=== PATIENT | male | born 1970 | race Caucasian/White ===

== ENCOUNTER 2019-04-30 10:20 | Emergency (ER) | payer MEDICAID, OTHER ==
[~2019-04-30] VITALS: Ht 182 cm; Wt 108.0 kg
[2019-04-30] MEDS ORDERED: METF-478 PO (10:36)
--- NOTE | 2019-04-30 10:55 | ED Cough/URI ---
General Chief Complaint: Cough/Cold/Flu Symptoms Stated Complaint: COUGH;VOMITING;SORE THROAT Nursing Triage Note: PT CO OF COLD AND COUGH SX FOR APPROX MONTH Sepsis Screen: No Definite Risk Source: patient Exam Limitations: no limitations History of Present Illness Date Seen by Provider: Apr 30, 2019 Time Seen by Provider: 10:35 Initial Comments The patient presents to the ER by private conveyance with chief complaint of 2 months of cough but no last month has become productive. No fevers chills. Last day or so he's been coughing so much that he's vomited. No diarrhea or abdominal chest pain. No history of COPD or asthma. He follows with Dr. Castellanos at [facility] and didn't get a flu shot last week. He has not seen his primary care doctor or urgent care about his cough. He's been told he has allergies in the past that he does not believe that and does not take any anti- allergy medicines. He says he's coughing up stringy green phlegm. Allergies and Home Medications Home Medications Benzonatate 100 Mg Capsule, 100 MG PO Q6H PRN for cough Prescribed by: SUMMER MUSA on 04/30/19 1057 Ondansetron 4 Mg Tab.rapdis, 4 MG PO Q6H PRN for NAUSEA/VOMITING Prescribed by: SUMMER MUSA on 04/30/19 1057 Patient Home Medication List Home Medication List Reviewed: Yes Review of Systems Review of Systems Constitutional: No chills, No fever EENTM: No ear discharge, No ear pain Respiratory: cough, phlegm; No short of breath, No wheezing Cardiovascular: No chest pain, No edema Gastrointestinal: No abdominal pain, No nausea, No vomiting Genitourinary: No discharge, No dysuria Past Lblbqbl-Ljjyye-Ccmolr Hx Patient Social History Alcohol Use: Denies Use Recreational Drug Use: No Smoking Status: Former Smoker Recent Foreign Travel: No Contact w/Someone Who Travel: No Recent Infectious Disease Expo: No Recent Hopitalizations: No Physical Abuse: No Sexual Abuse: No Past Medical History Surgeries: Yes (L FOOT AMPUTATION) Appendectomy Respiratory: No Cardiac: No Neurological: No Genitourinary: No Gastrointestinal: No 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 oz. kg; 32.00 BMI Method: General Appearance: WD/WN, no apparent distress Eyes: Bilateral Eye Normal Inspection, Bilateral Eye PERRL, Bilateral Eye EOMI HEENT: PERRL/EOMI, normal ENT inspection, TMs normal, pharyngeal erythema (swollen tonsils without exudate) Neck: non-tender, full range of motion, supple, normal inspection Respiratory: lungs clear, normal breath sounds, no respiratory distress, no accessory muscle use Cardiovascular: normal peripheral pulses, regular rate, rhythm Gastrointestinal: normal bowel sounds, non tender, soft Neurologic/Psychiatric: alert, normal mood/affect, oriented x 3 Progress/Results/Core Measures Suspected Sepsis Recent Fever Within 48 Hours: No Infection Criteria Present: None New/Unexplained Altered Menta: No Sepsis Screen: No Definite Risk SIRS Temperature: Pulse: 107 Respiratory Rate: 18 Blood Pressure 147 /77 Mean: 100 Results/Orders My Orders Orders - SUMMER MUSA Chest Pa/Lat (2 View) (04/30/19 10:46) Vital Signs/I&O 04/30/19 04/30/19 10:25 10:25 Temp 35.8 Pulse 107 Resp 18 B/P (MAP) 147/77 (100) Pulse Ox 100 O2 Delivery Room Air Room Air Capillary Refill : Less Than 3 Seconds Blood Pressure Mean: 100 Progress Note : Time: 10:50 Progress Note Two-view chest. It is negative then we'll treat him with some antiallergy cetirizine, Tessalon Perles and Zofran for nausea. Follow-up with primary care. Aseptic vital signs and clear lung sounds. Diagnostic Imaging Diagonstic Imaging: Xray Plain Films/CT/US/NM/MRI: chest (2v) Comments NAME: BALDEMARCARLENEDWAYNE MED REC#: [id number] PT STATUS: REG ER : 1970 PHYSICIAN: SUMMER MUSA MD ADMIT DATE: 04/30/19/ER Draft Date of Exam:04/30/19 CHEST PA/LAT (2 VIEW) INDICATION: Cough and cold symptoms. Time of exam: 10:51 AM Correlation is made with prior chest from 02/28/2016. The heart size is stable. The lungs are clear. No infiltrates are detected. The pulmonary vascularity is unremarkable. No effusion or pneumothorax is seen. Postoperative changes in the lower cervical spine are identified. Left costophrenic angle was not included on this radiograph. IMPRESSION: No acute cardiopulmonary process is detected. Dictated on workstation # [id number] Dict: 04/30/19 1106 Trans: 04/30/19 1110 [facility] [id number] Interpreted by: JANAE NEFF MD Electronically signed by: Reviewed: Reviewed by Me Departure Impression Primary Impression: Upper respiratory infection Qualified Codes: J06.9 - Acute upper respiratory infection, unspecified Additional Impressions: Cough Allergic cough Disposition: 01 HOME, SELF-CARE Condition: Stable Departure-Patient Inst. Decision time for Depature: 11:16 Referrals: FABY GARCIA MD (PCP) Primary Care Physician Patient Instructions: Cough, Adult (DC) Add. Discharge Instructions: Start taking cetirizine/Zyrtec 10 mg daily for the next month. If you have coughing fits you can use humidifiers, vapor rubs such as Mentholatum or Vicks and take 1-2 tablets of Tessalon Perles every 6 hours as needed. If you have nausea or vomiting then you can take Zofran 1 tablet under the tongue every 6 hours as needed. Take 2 tablets of prednisone twice a day for the next 5 days to help bring down the inflammation causing your cough. If you begin to experience fevers or your symptoms do not improve over the next week or 2 then you need to follow-up with your primary care doctor to discuss further workup. All discharge instructions reviewed with patient and/or family. Voiced un derstanding. Scripts Prednisone (Prednisone) 20 Mg Tab 40 MG PO BID for 5 Days, #20 TAB 0 Refills Prov: SUMMER MUSA 04/30/19 Ondansetron (Ondansetron Odt) 4 Mg Tab.rapdis 4 MG PO Q6H PRN for NAUSEA/VOMITING, #8 TAB 0 Refills Prov: SUMMER MUSA 04/30/19 Benzonatate (Tessalon Perle) 100 Mg Capsule 100 MG PO Q6H PRN for cough, #30 CAP 0 Refills Prov: SUMMER MUSA 04/30/19 Work/School Note: Work Release Form Date Seen in the Emergency Department: Apr 30, 2019 Return to Work: May 01, 2019 Restrictions: No Restrictions SUMMER MUSA Apr 30, 2019 10:55
[2019-04-30] MEDS ORDERED: BENZ-13 PO (10:57)
[2019-04-30] MEDS ORDERED: ONDA4TAB11 PO (10:57)
--- NOTE | 2019-04-30 11:10 | Diagnostic Imaging Report ---
INDICATION: Cough and cold symptoms. Time of exam: 10:51 AM Correlation is made with prior chest from 02/28/2016. The heart size is stable. The lungs are clear. No infiltrates are detected. The pulmonary vascularity is unremarkable. No effusion or pneumothorax is seen. Postoperative changes in the lower cervical spine are identified. Left costophrenic angle was not included on this radiograph. IMPRESSION: No acute cardiopulmonary process is detected. Dictated by: Dictated on workstation # [id number]
[2019-04-30] MEDS ORDERED: PRD20T PO (11:18)
[2019-04-30 11:30] VITALS: BP 147/77
== END 2019-04-30 11:30 | disposition home or self-care (01) ==
LOC: ER 10:22
DX: J06.9 Acute upper respiratory infection, unspecified (principal); E11.9 Type 2 diabetes mellitus without complications; Z89.432 Acquired absence of left foot; Z87.891 Personal history of nicotine dependence; Z90.49 Acquired absence of other specified parts of digestive tract
CPT/HCPCS: 71046

== ENCOUNTER 2020-10-29 15:02 | Inpatient (IN) | payer MEDICAID, MEDICARE, OTHER ==
[~2020-10-29] VITALS: Ht 183 cm; Wt 99.7 kg
[~2020-10-29 15:02] MED LIST: BENZ-13 PO; METF-478 PO; ONDA4TAB11 PO; PRD20T PO
[2020-10-29] MEDS ORDERED: NS IV 1000 ML 1,000 ML IV SCH ×3 (15:30→19:15)
--- NOTE | 2020-10-29 15:33 | ED General ---
General Stated Complaint: DIABETIC ULCER;SOB;COUGH Source of Information: Patient Exam Limitations: No Limitations History of Present Illness Date Seen by Provider: Oct 29, 2020 Time Seen by Provider: 15:28 Initial Comments To ER by private vehicle with reports of ulcers to both of his feet. He had a prior left transmetatarsal foot amputation about 4 years ago. He has an ulcer of the distal tip of the stump which seems to be improving. He has a more significant ulcer to the right great toe. He has been wrapping these at home with gauze. He is not seeing wound care. He has not established with any health system physician. History of diabetes but does not take any medication to control it. He also had some shortness of breath and chills onset today. He states he does this often when he gets any sort of illness. He had Covid in April and received his second dose of Moderna vaccine in the middle of September of this year. He is ambulatory into ER with the use of a walker. Timing/Duration: Other Severity: Moderate Associated Systoms: Denies Symptoms Allergies and Home Medications Allergies Coded Allergies: No Known Drug Allergies (Unverified , 10/29/20) Home Medications Benzonatate 100 Mg Capsule, 100 MG PO Q6H PRN for cough Prescribed by: SUMMER MUSA on 04/30/19 1057 Ondansetron 4 Mg Tab.rapdis, 4 MG PO Q6H PRN for NAUSEA/VOMITING Prescribed by: SUMMER MUSA on 04/30/19 1057 Prednisone 20 Mg Tab, 40 MG PO BID Prescribed by: SUMMER MUSA on 04/30/19 1118 Patient Home Medication List Home Medication List Reviewed: Yes Review of Systems Review of Systems Constitutional: see HPI, chills EENTM: see HPI Respiratory: see HPI, short of breath Cardiovascular: no symptoms reported Genitourinary: no symptoms reported Musculoskeletal: see HPI Skin: no symptoms reported Psychiatric/Neurological: No Symptoms Reported Hematologic/Lymphatic: No Symptoms Reported Immunological/Allergic: no symptoms reported Past Cewhqkg-Gxvgtc-Qcbeop Hx Patient Social History Recent Hopitalizations: No Past Medical History Surgeries: Yes (L FOOT AMPUTATION) Appendectomy Respiratory: No Cardiac: No Neurological: No Genitourinary: No Gastrointestinal: No Musculoskeletal: Yes (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 oz. kg; 32.00 BMI Method: General Appearance: No Apparent Distress, WD/WN, Chronically ill, Other (Complains of shortness of breath. Lungs are clear to auscultation. Oxygen saturation 99% on room air. Heart rate little tachycardia rate of 100-1 10. Blood pressure 150s over 90s. Afebrile.) Eyes: Bilateral Eye Normal Inspection, Bilateral Eye PERRL, Bilateral Eye EOMI Neck: Full Range of Motion, Normal Inspection Respiratory: No Accessory Muscle Use, No Respiratory Distress Cardiovascular: Normal Peripheral Pulses, Tachycardia Gastrointestinal: Non Tender, Soft Extremity: No Calf Tenderness, Other (There is a callus with a central fissure that is ulcerated to the stump of the left foot. The right great toe is necrotic and moist at the medial tip. I am able to express bubbles and pus from this by squeezing on it. The anteromedial ankle on the right has some ulcers as well. He has a palpable dorsalis pedis pulse as well as posterior tibial pulse bilaterally) Neurologic/Psychiatric: Alert, Oriented x3 Skin: Normal Color, Warm/Dry Focused Exam Lactate Level 10/29/20 15:30: Lactic Acid Level 1.22 Lactic Acid Level Laboratory Tests Test 10/29/20 15:30 Lactic Acid Level 1.22 MMOL/L (0.50-2.00) Progress/Results/Core Measures Suspected Sepsis SIRS Temperature: Pulse: Respiratory Rate: Laboratory Tests 10/29/20 15:30: White Blood Count 9.4 Blood Pressure / Mean: 10/29/20 15:30: Lactic Acid Level 1.22 Laboratory Tests 10/29/20 15:30: Creatinine 1.51H, INR Comment 1.0, Platelet Count 406H, Total Bilirubin 0.4 Results/Orders Lab Results Laboratory Tests Test 10/29/20 15:30 10/29/20 16:18 Range/Units White Blood Count 9.4 4.3-11.0 10^3/uL Red Blood Count 4.53 4.30-5.52 10^6/uL Hemoglobin 12.3 L 13.3-17.7 g/dL Hematocrit 37 L 40-54 % Mean Corpuscular Volume 81 80-99 fL Mean Corpuscular Hemoglobin 27 25-34 pg Mean Corpuscular Hemoglobin Concent 34 32-36 g/dL Red Cell Distribution Width 12.4 10.0-14.5 % Platelet Count 406 H 130-400 10^3/uL Mean Platelet Volume 9.6 9.0-12.2 fL Immature Granulocyte % (Auto) 1 % Neutrophils (%) (Auto) 77 H 42-75 % Lymphocytes (%) (Auto) 16 12-44 % Monocytes (%) (Auto) 7 0-12 % Eosinophils (%) (Auto) 0 0-10 % Basophils (%) (Auto) 0 0-10 % Neutrophils # (Auto) 7.2 1.8-7.8 X 10^3 Lymphocytes # (Auto) 1.5 1.0-4.0 X 10^3 Monocytes # (Auto) 0.6 0.0-1.0 X 10^3 Eosinophils # (Auto) 0.0 0.0-0.3 10^3/uL Basophils # (Auto) 0.0 0.0-0.1 10^3/uL Immature Granulocyte # (Auto) 0.1 0.0-0.1 10^3/uL Erythrocyte Sedimentation Rate 76 H 0-30 MM/HR Prothrombin Time 13.2 12.2-14.7 SEC INR Comment 1.0 0.8-1.4 D-Dimer 1.00 H 0.00-0.49 UG/ML Sodium Level 125 *L 135-145 MMOL/L Potassium Level 4.3 3.6-5.0 MMOL/L Chloride Level 90 L 98-107 MMOL/L Carbon Dioxide Level 23 21-32 MMOL/L Anion Gap 12 5-14 MMOL/L Blood Urea Nitrogen 37 H 7-18 MG/DL Creatinine 1.51 H 0.60-1.30 MG/DL Estimat Glomerular Filtration Rate 49 BUN/Creatinine Ratio 25 Glucose Level 508 *H 70-105 MG/DL Lactic Acid Level 1.22 0.50-2.00 MMOL/L Calcium Level 9.4 8.5-10.1 MG/DL Corrected Calcium 9.7 8.5-10.1 MG/DL Total Bilirubin 0.4 0.1-1.0 MG/DL Aspartate Amino Transf (AST/SGOT) 15 5-34 U/L Alanine Aminotransferase (ALT/SGPT) 14 0-55 U/L Alkaline Phosphatase 93 40-136 U/L Total Protein 9.3 H 6.4-8.2 GM/DL Albumin 3.6 3.2-4.5 GM/DL Beta-Hydroxybutyrate (Chem panel) 1.40 H 0.00-0.27 MMOL/L Urine Color YELLOW Urine Clarity SL CLOUDY Urine pH 5.0 5-9 Urine Specific Maxie >=1.030 1.016-1.022 Urine Protein 2+ H NEGATIVE Urine Glucose (UA) 3+ H NEGATIVE Urine Ketones TRACE H NEGATIVE Urine Nitrite NEGATIVE NEGATIVE Urine Bilirubin NEGATIVE NEGATIVE Urine Urobilinogen 0.2 < = 1.0 MG/DL Urine Leukocyte Esterase 1+ H NEGATIVE Urine RBC (Auto) 2+ H NEGATIVE Urine RBC NONE /HPF Urine WBC 25-50 H /HPF Urine Squamous Epithelial Cells NONE /HPF Urine Crystals NONE /LPF Urine Bacteria LARGE H /HPF Urine Casts NONE /LPF Urine Mucus NEGATIVE /LPF Urine Yeast LARGE H /HPF Urine Culture Indicated YES My Orders Orders - TREVER PABLO APRN Hemoglobin A1c (10/29/20 15:23) Cbc With Automated Diff (10/29/20 15:23) Comprehensive Metabolic Panel (10/29/20 15:23) Erythrocyte Sedimentation Rate (10/29/20 15:23) Foot, Right, 3 View (10/29/20 15:23) Ed Iv/Invasive Line Start (10/29/20 15:23) Blood Culture (10/29/20 15:23) Ua Culture If Indicated (10/29/20 15:23) Beta Hydroxybutyrate (10/29/20 15:23) Protime With Inr (10/29/20 15:23) Chest 1 View, Ap/Pa Only (10/29/20 15:23) Fibrin Degradation Products (10/29/20 15:23) Lactic Acid Analyzer (10/29/20 15:23) Wound Culture (10/29/20 15:23) Ns Iv 1000 Ml (Sodium Chloride 0.9%) (10/29/20 15:30) Ct Angio Chest W (10/29/20 16:14) Ns Iv 1000 Ml (Sodium Chloride 0.9%) (10/29/20 16:15) Urine Culture (10/29/20 16:18) Iohexol Injection (Omnipaque 350 Mg/Ml 1 (10/29/20 16:45) Received Contrast (Hold Metformin- Contr (10/29/20 16:45) Ns (Ivpb) (Sodium Chloride 0.9% Ivpb Bag (10/29/20 16:45) Ceftriaxone For Iv Use (Rocephin For I (10/29/20 16:45) Fluconazole Tablet (Ed Only) (Diflucan T (10/29/20 16:45) Piperacillin Sodium/Tazobactam (Zosyn Vi (10/29/20 17:15) Vancomycin Injection (Vancomycin Injecti (10/29/20 17:15) Insulin (Regular) Human (Novolin R (Per (10/29/20 17:15) Medications Given in ED Current Medications Medications Dose Ordered Sig/Zhao Route Start Time Stop Time Status Last Admin Dose Admin Iohexol 100 ml ONCE ONCE IV 10/29/20 16:45 10/29/20 16:48 DC 10/29/20 16:46 80 ML Sodium Chloride 100 ml ONCE ONCE IV 10/29/20 16:45 10/29/20 16:48 DC 10/29/20 16:46 80 ML Vital Signs/I&O 10/29/20 15:15 Temp 37.0 Pulse 113 Resp 16 B/P (MAP) 138/74 (95) O2 Delivery Room Air Capillary Refill : Diagnostic Imaging Diagonstic Imaging: Xray Comments NAME: ARMINDAANILADWAYNE [facility] REC#: [id number] PT STATUS: REG ER : 1970 PHYSICIAN: TREVER PABLO APRN ADMIT DATE: 10/29/20/ER Draft Date of Exam:10/29/20 FOOT, RIGHT, 3 VIEW EXAMINATION: Right foot radiographs, 3 views. COMPARISON: None. HISTORY: 50-year-old male, osteomyelitis of the great toe. FINDINGS: There is soft tissue swelling at the level of the first digit proximal and distal phalanges. There is bone remodeling of the first distal phalanx which appears likely long-standing. There is a nondisplaced fracture involving the lateral aspect of the base of the first distal phalanx. There is bone destruction involving the distal aspect of the first proximal phalanx with pathologic fracture. There is abnormal increased attenuation in the adjacent soft tissues medially. There is degenerative type calcaneal enthesopathy. There is mild tibiotalar osteoarthritis. IMPRESSION: 1. Osteomyelitis involving at least the distal aspect of the first proximal phalanx with pathologic fracture. 2. Most likely chronic appearing remodeling of the first distal phalanx. Nondisplaced fracture of the lateral aspect of the base of the first distal phalanx. Dictated on workstation # [id number] Dict: 10/29/20 1602 Trans: 10/29/20 1613 [facility] [id number] Interpreted by: AZAEL SMITH MD Electronically signed by: NAME: DWAYNE ALLISON [facility] REC#: [id number] PT STATUS: REG ER : 1970 PHYSICIAN: TREVER PABLO APRN ADMIT DATE: 10/29/20/ER Draft Date of Exam:10/29/20 CT ANGIO CHEST W EXAMINATION: CT angiography of the chest. TECHNIQUE: Contrast enhanced thin section helical images were obtained through the chest with intravenous contrast timed for the optimal opacification of the arterial structures per CTA protocol. Post-processing, reconstructions and interpretation of angiographic images of the vessels was performed. 3D MIP reconstructions were performed and reviewed. All CT scans use one or more of the following dose optimizing techniques: automated exposure control, MA and/or KvP adjustment based on a patient size and exam type, or iterative reconstruction. HISTORY: Shortness of breath. COMPARISON: None available. FINDINGS: There is no pulmonary embolism. There is no edema or pneumonia. No pleural effusion. No pneumothorax. There is a 6 mm lingular nodule. There is mild dependent atelectasis in the bases. There is no axillary or supraclavicular lymphadenopathy. There is no mediastinal lymphadenopathy. Heart size is normal. There are mild coronary artery calcifications. No pericardial effusion. Aorta is normal in caliber. Limited views of the upper abdomen show changes of cholecystectomy. There are no suspicious osseous lesions. IMPRESSION: 1. No pulmonary embolism. 2. There is a 6 mm lingular nodule. According to the Fleischner Society guidelines: Recommend CT at 6-12 months and then again at 18-24 months (the second CT is optional in a low risk patient). Dictated on workstation # [id number] Dict: 10/29/20 1650 Trans: 10/29/20 1657 [id number] [id number] Interpreted by: DAVID KAUFMAN MD Electronically signed by: Departure Communication (Admissions) Going to admit to Dr. White for mild DKA, urinary tract infection. Glucose 503, beta hydroxybutyrate little elevated with ketones in the urine. However he has a normal CO2 and anion gap. Going to admit on insulin drip, Zosyn and vancomycin and consult Dr. Cuevas. Impression Primary Impression: Osteomyelitis of toe of right foot Additional Impressions: Diabetic ketoacidosis Urinary tract infection Disposition: ADMITTED INPATIENT Condition: Stable Admissions Decision to Admit Reason: Admit from ER (General) Decision to Admit/Date: Oct 29, 2020 Time/Decision to Admit Time: 17:16 Departure-Patient Inst. Referrals: FABY GARCIA MD (PCP) Primary Care Physician TREVER PABLO APRN Oct 29, 2020 15:33
[2020-10-29 15:49] LABS: BASOPHILS % (AUTO) 0 % (0-10); EOSINOPHILS % (AUTO) 0 % (0-10); HEMATOCRIT 37 % (40-54); HEMOGLOBIN 12.3 g/dL (13.3-17.7); LYMPHOCYTES # (AUTO) 1.5 X 10^3 (1.0-4.0); LYMPHOCYTES % (AUTO) 16 % (12-44); MEAN CORPUSCULAR HEMOGLOBIN 27 pg (25-34); MEAN CORPUSCULAR HGB CONC 34 g/dL (32-36); MEAN CORPUSCULAR VOLUME 81 fL (80-99); MEAN PLATELET VOLUME 9.6 fL (9.0-12.2); MONOCYTES # (AUTO) 0.6 X 10^3 (0.0-1.0); MONOCYTES % (AUTO) 7 % (0-12); NEUTROPHILS # (AUTO) 7.2 X 10^3 (1.8-7.8); NEUTROPHILS % (AUTO) 77 % (42-75); PLATELET COUNT 406 10^3/uL (130-400); WHITE BLOOD COUNT 9.4 10^3/uL (4.3-11.0)
[2020-10-29 15:59] LABS: ERYTHROCYTE SEDIMENTATION RATE 76 MM/HR (0-30)
[2020-10-29 16:04] LABS: PROTHROMBIN TIME PATIENT 13.2 SEC (12.2-14.7)
[2020-10-29 16:05] LABS: ALBUMIN 3.6 GM/DL (3.2-4.5); BILIRUBIN,TOTAL 0.4 MG/DL (0.1-1.0); CALCIUM 9.4 MG/DL (8.5-10.1); CREATININE SERUM 1.51 MG/DL (0.60-1.30); POTASSIUM 4.3 MMOL/L (3.6-5.0); TOTAL PROTEIN 9.3 GM/DL (6.4-8.2)
--- NOTE | 2020-10-29 16:10 | Diagnostic Imaging Report ---
EXAMINATION: Chest radiograph, portable AP view. DATE: 10/29/2020 4:00 p.m. INDICATION: 50-year-old male, history of osteomyelitis. Surgical clearance. COMPARISON: April 30, 2019. FINDINGS: There is incompletely imaged cervical spine hardware. Heart size and mediastinal contours are unremarkable. There is no identified pneumothorax. There is no large pleural effusion. There is no identified focal airspace consolidation. IMPRESSION: No identified acute cardiopulmonary abnormality. Dictated by: Dictated on workstation # [id number]
--- NOTE | 2020-10-29 16:14 | Diagnostic Imaging Report ---
EXAMINATION: Right foot radiographs, 3 views. COMPARISON: None. HISTORY: 50-year-old male, osteomyelitis of the great toe. FINDINGS: There is soft tissue swelling at the level of the first digit proximal and distal phalanges. There is bone remodeling of the first distal phalanx which appears likely long-standing. There is a nondisplaced fracture involving the lateral aspect of the base of the first distal phalanx. There is bone destruction involving the distal aspect of the first proximal phalanx with pathologic fracture. There is abnormal increased attenuation in the adjacent soft tissues medially. There is degenerative type calcaneal enthesopathy. There is mild tibiotalar osteoarthritis. IMPRESSION: 1. Osteomyelitis involving at least the distal aspect of the first proximal phalanx with pathologic fracture. 2. Most likely chronic appearing remodeling of the first distal phalanx. Nondisplaced fracture of the lateral aspect of the base of the first distal phalanx. Dictated by: Dictated on workstation # [id number]
[2020-10-29 16:31] LABS: BILIRUBIN,URINE NEGATIVE (NEGATIVE); CLARITY,URINE SL CLOUDY; COLOR,URINE YELLOW; GLUCOSE, URINE (UA) 3+ (NEGATIVE); KETONES,URINE TRACE (NEGATIVE); LEUKOCYTE ESTERASE ,URINE 1+ (NEGATIVE); NITRITE,URINE NEGATIVE (NEGATIVE); PROTEIN,URINE 2+ (NEGATIVE)
[2020-10-29 16:43] LABS: BACTERIA,URINE LARGE /HPF; WBC,URINE 25-50 /HPF; YEAST,URINE LARGE /HPF
[2020-10-29] MEDS ORDERED: HOLD METFORMIN - RECEIVED CONTRAST 20 ML VIAL IV SCH (16:45)
[2020-10-29] MEDS ORDERED: IOHEXOL 350 MG/ML 100 ML (OMNIPAQUE 350) VIAL IV ONE (16:45)
[2020-10-29] MEDS ORDERED: cefTRIAXone FOR IV USE 1,000 MG in WATER (STERILE) FOR INJECTION 10 ML IV ONE (16:45)
[2020-10-29] MEDS ORDERED: FLUCONAZOLE 150 MG TABLET (ED ONLY) PO ONE (16:45)
[2020-10-29] MEDS ORDERED: NS 100 ML (IVPB) BAG IV ONE (16:45)
--- NOTE | 2020-10-29 16:57 | Diagnostic Imaging Report ---
EXAMINATION: CT angiography of the chest. TECHNIQUE: Contrast enhanced thin section helical images were obtained through the chest with intravenous contrast timed for the optimal opacification of the arterial structures per CTA protocol. Post-processing, reconstructions and interpretation of angiographic images of the vessels was performed. 3D MIP reconstructions were performed and reviewed. All CT scans use one or more of the following dose optimizing techniques: automated exposure control, MA and/or KvP adjustment based on a patient size and exam type, or iterative reconstruction. HISTORY: Shortness of breath. COMPARISON: None available. FINDINGS: There is no pulmonary embolism. There is no edema or pneumonia. No pleural effusion. No pneumothorax. There is a 6 mm lingular nodule. There is mild dependent atelectasis in the bases. There is no axillary or supraclavicular lymphadenopathy. There is no mediastinal lymphadenopathy. Heart size is normal. There are mild coronary artery calcifications. No pericardial effusion. Aorta is normal in caliber. Limited views of the upper abdomen show changes of cholecystectomy. There are no suspicious osseous lesions. IMPRESSION: 1. No pulmonary embolism. 2. There is a 6 mm lingular nodule. According to the Fleischner Society guidelines: Recommend CT at 6-12 months and then again at 18-24 months (the second CT is optional in a low risk patient). Dictated by: Dictated on workstation # [id number]
[2020-10-29] MEDS ORDERED: VANCOMYCIN INJECTION 1,000 MG in NS (IVPB) 250 ML IV SCH (17:15)
[2020-10-29] MEDS ORDERED: inSUlin (REGULAR) HUMAN 1 UNIT/0.01 ML (CHARGE PER UNIT) IV SCH (17:15)
[2020-10-29] MEDS ORDERED: PIPERACILLIN SODIUM/TAZOBACTAM 4.5 GM in NS (IVPB) 100 ML IV ONE (17:15)
[2020-10-29] MEDS ORDERED: VANCOMYCIN 1500 MG/NS 500 ML IVPB IV NR ×2 (18:00)
[2020-10-29] MEDS ORDERED: PIPERACILLIN/TAZO 4.5 GM VIAL (ZOSYN) IV ONE (18:01)
[2020-10-29 18:45] VITALS: BP 142/84
[2020-10-29] MEDS ORDERED: ONDANSETRON 4 MG/2 ML (SDV) Z0FRAN IV PRN (19:15)
[2020-10-29] MEDS ORDERED: POTASSIUM CL 10MEQ/50ML IVPB 50 ML IV SCH (19:15)
[2020-10-29] MEDS ORDERED: D5 1/2 NS 1000 ML IV SOLUTION 1,000 ML IV SCH (19:15)
[2020-10-29] MEDS: 1/2 NS IV SOLUTION 1,000 ML IV SCH ×2 (19:33→23:23)
[2020-10-29 19:41] LABS: MEAN PLATELET VOLUME 10.1 fL (9.0-12.2); WHITE BLOOD COUNT 9.7 10^3/uL (4.3-11.0)
[2020-10-29] MEDS ORDERED: ENOXAPARIN 40 MG/0.4 ML (LOVENOX) SYR SC SCH (20:00)
[2020-10-29] MEDS: meTOprolol TARTRATE 25 MG (LOPRESSOR) TABLET PO SCH (20:18)
[2020-10-29] MEDS: POTASSIUM CL 10MEQ/50ML IVPB 50 ML IV SCH ×2 (20:19→23:13)
[2020-10-29 22:07] LABS: BUN/CREATININE RATIO 26; CALCIUM 8.1 MG/DL (8.5-10.1); CARBON DIOXIDE 22 MMOL/L (21-32); CHLORIDE 99 MMOL/L (98-107); CREATININE SERUM 1.11 MG/DL (0.60-1.30); GFR ESTIMATED > 60; GLUCOSE 215 MG/DL (70-105); POTASSIUM 3.6 MMOL/L (3.6-5.0); SODIUM 133 MMOL/L (135-145)
[2020-10-29] MEDS: HYDROcodone/APAP 5 MG/325 MG (LORTAB) TAB PO PRN (23:11)
[2020-10-29] MEDS: PIPERACILLIN/TAZO 4.5 GM/NS 100 ML IV SCH ×2 (23:38)
[2020-10-30 00:02] LABS: BUN/CREATININE RATIO 27; CALCIUM 7.8 MG/DL (8.5-10.1); CARBON DIOXIDE 21 MMOL/L (21-32); CHLORIDE 100 MMOL/L (98-107); CREATININE SERUM 1.07 MG/DL (0.60-1.30); GFR ESTIMATED > 60; GLUCOSE 214 MG/DL (70-105); POTASSIUM 3.8 MMOL/L (3.6-5.0); SODIUM 132 MMOL/L (135-145)
[2020-10-30] MEDS: POTASSIUM CL 10MEQ/50ML IVPB 50 ML IV SCH (01:12)
[2020-10-30] MEDS: 1/2 NS IV SOLUTION 1,000 ML IV SCH (02:09)
[2020-10-30 03:41] LABS: BASOPHILS # (AUTO) 0.1 10^3/uL (0.0-0.1); BASOPHILS % (AUTO) 1 % (0-10); EOSINOPHILS # (AUTO) 0.2 10^3/uL (0.0-0.3); EOSINOPHILS % (AUTO) 2 % (0-10); HEMATOCRIT 31 % (40-54); HEMOGLOBIN 9.9 g/dL (13.3-17.7); LYMPHOCYTES # (AUTO) 2.4 10^3/uL (1.0-4.0); LYMPHOCYTES % (AUTO) 28 % (12-44); MEAN CORPUSCULAR HEMOGLOBIN 27 pg (25-34); MEAN CORPUSCULAR HGB CONC 32 g/dL (32-36); MEAN CORPUSCULAR VOLUME 85 fL (80-99); MONOCYTES # (AUTO) 0.8 10^3/uL (0.0-1.0); MONOCYTES % (AUTO) 9 % (0-12); NEUTROPHILS # (AUTO) 5.3 10^3/uL (1.8-7.8); NEUTROPHILS % (AUTO) 60 % (42-75); PLATELET COUNT 306 10^3/uL (130-400); WHITE BLOOD COUNT 8.9 10^3/uL (4.3-11.0)
[2020-10-30 03:57] LABS: BUN/CREATININE RATIO 26; CARBON DIOXIDE 21 MMOL/L (21-32); CHLORIDE 101 MMOL/L (98-107); CREATININE SERUM 1.08 MG/DL (0.60-1.30); GFR ESTIMATED > 60; GLUCOSE 180 MG/DL (70-105); MAGNESIUM 1.9 MG/DL (1.6-2.4); PHOSPHORUS 3.3 MG/DL (2.3-4.7); POTASSIUM 3.8 MMOL/L (3.6-5.0); SODIUM 132 MMOL/L (135-145)
[2020-10-30] MEDS: inSUlin ASPART (NovoLOG) 1 UNIT/0.01 ML (CHARGE PER UNIT) SC SCH ×4 (06:32→22:05)
[2020-10-30] MEDS: VANCOMYCIN 1500 MG/NS 500 ML IVPB IV SCH ×4 (06:32→19:09)
--- NOTE | 2020-10-30 07:50 | Diagnostic Imaging Report ---
EXAMINATION: Chest 1 view HISTORY: Shortness of breath COMPARISON: 10/29/2020 FINDINGS: The lungs are clear without edema or pneumonia. No pleural effusion or pneumothorax. Heart size is normal. IMPRESSION: 1. Clear lungs. Dictated by: Dictated on workstation # [id number]
[2020-10-30] MEDS: meTOprolol TARTRATE 25 MG (LOPRESSOR) TABLET PO SCH ×2 (09:08→22:05)
[2020-10-30] MEDS: PIPERACILLIN/TAZO 4.5 GM/NS 100 ML IV SCH ×4 (09:08→16:57)
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
[2020-10-30] MEDS: fluCOnazole (DIFLUCAN) 100 MG TAB PO SCH (16:57)
[2020-10-31] VITALS (7 sets, daily range): BP systolic 115–141; BP diastolic 73–89
[2020-10-31] MEDS: PIPERACILLIN/TAZO 4.5 GM/NS 100 ML IV SCH ×6 (00:08→16:11)
[2020-10-31] MEDS ORDERED: TROUGH ORDER-PHARMACY XX NR (06:00)
[2020-10-31] MEDS: inSUlin ASPART (NovoLOG) 1 UNIT/0.01 ML (CHARGE PER UNIT) SC SCH ×4 (06:35→21:25)
--- NOTE | 2020-10-31 06:56 | Progress Note - Hospitalist ---
Subjective HPI/CC On Admission Date Seen by Provider: Oct 31, 2020 Time Seen by Provider: 12:00 CC: DKA with right foot osteomyelitis with cellulitis HPI: This is a 50yoWM clinic patient of [facility] who stopped taking his insulin for several months who presented to the ER with 500+ sugar and a draining right great toe ulceration and cellulitis. Dr Cuevas was consulted and will plan on great toe amputation Sunday. DKA noted so insulin drip was started. Subjective/Events-last exam Patient doing well Labs ok OR today and amputated the great toe Wound vac will be placed tomorrow Review of Systems General: Fatigue Musculoskeletal: foot pain Focused Exam Lactate Level 10/29/20 15:30: Lactic Acid Level 1.22 Objective Exam Vital Signs Vital Signs Date Time Temp Pulse Resp B/P (MAP) Pulse Ox O2 Delivery O2 Flow Rate FiO2 10/31/20 15:37 36.5 85 18 150/87 (108) 99 Room Air 10/31/20 10:45 3 Capillary Refill : Less Than 3 Seconds General Appearance: No Apparent Distress, WD/WN, Chronically ill Respiratory: Lungs Clear Cardiovascular: Regular Rate, Rhythm Neurologic/Psychiatric: Alert, Oriented x3 Results/Procedures Lab Laboratory Tests 10/31/20 06:23 Patient resulted labs reviewed. Assessment/Plan Assessment and Plan Assess & Plan/Chief Complaint Assessment: DKA Right great toe cellulitis with osteomyelitis s/p amputation Dr Cuevas POD # 0 HTN HLP Plan: Insulin IV abx Dr Cuevas 10/31/20: Insulin decreased s/p amputation CHANTELL HAHN DO Oct 31, 2020 06:56
[2020-10-31 07:13] LABS: BASOPHILS # (AUTO) 0.1 10^3/uL (0.0-0.1); BASOPHILS % (AUTO) 1 % (0-10); EOSINOPHILS # (AUTO) 0.2 10^3/uL (0.0-0.3); EOSINOPHILS % (AUTO) 3 % (0-10); HEMATOCRIT 35 % (40-54); HEMOGLOBIN 11.1 g/dL (13.3-17.7); LYMPHOCYTES # (AUTO) 2.6 10^3/uL (1.0-4.0); LYMPHOCYTES % (AUTO) 29 % (12-44); MEAN CORPUSCULAR HEMOGLOBIN 27 pg (25-34); MEAN CORPUSCULAR HGB CONC 31 g/dL (32-36); MEAN CORPUSCULAR VOLUME 85 fL (80-99); MEAN PLATELET VOLUME 9.8 fL (9.0-12.2); MONOCYTES # (AUTO) 0.7 10^3/uL (0.0-1.0); MONOCYTES % (AUTO) 8 % (0-12); NEUTROPHILS # (AUTO) 5.1 10^3/uL (1.8-7.8); NEUTROPHILS % (AUTO) 58 % (42-75); PLATELET COUNT 380 10^3/uL (130-400); WHITE BLOOD COUNT 8.8 10^3/uL (4.3-11.0)
[2020-10-31 07:50] LABS: ALANINE AMINOTRANSFERASE 13 U/L (0-55); ALBUMIN 2.9 GM/DL (3.2-4.5); ALKALINE PHOSPHATASE 56 U/L (40-136); BILIRUBIN,TOTAL 0.3 MG/DL (0.1-1.0); BUN/CREATININE RATIO 14; CARBON DIOXIDE 26 MMOL/L (21-32); CHLORIDE 105 MMOL/L (98-107); CREATININE SERUM 0.98 MG/DL (0.60-1.30); GFR ESTIMATED > 60; GLUCOSE 111 MG/DL (70-105); SODIUM 139 MMOL/L (135-145); TOTAL PROTEIN 7.7 GM/DL (6.4-8.2)
[2020-10-31] MEDS ORDERED: LIDOCAINE/EPI 1%-1:100,000 (XYLOCAINE) 20ML ONE (08:26)
[2020-10-31] MEDS: VANCOMYCIN 1500 MG/NS 500 ML IVPB IV SCH ×4 (08:42→18:45)
[2020-10-31] MEDS ORDERED: MIDAZOLAM 2 MG/2 ML (VERSED) VIAL ONE (08:44)
[2020-10-31] MEDS ORDERED: LIDOCAINE PF 2% 5 ML (XYLOCAINE) VIAL ONE (08:44)
[2020-10-31] MEDS ORDERED: SEVOFLURANE (ULTANE) 15 ML INHAL SOLN ONE ×2 (08:44→10:02)
[2020-10-31] MEDS ORDERED: fentaNYL INJ 100 MCG/2 ML AMP ONE (08:44)
[2020-10-31] MEDS ORDERED: proPOfol 200 MG/20 ML (DIPRIVAN) VIAL IV ONE (08:44)
[2020-10-31] MEDS ORDERED: morphine INJ 10 MG/ML 1ML (SYR OR VIAL) IVP ONE (09:00)
[2020-10-31] MEDS ORDERED: LACTATED RINGERS 1,000 ML IV PRN (09:00)
[2020-10-31] MEDS ORDERED: ONDANSETRON 4 MG/2 ML (SDV) Z0FRAN IVP PRN (09:00)
[2020-10-31] MEDS ORDERED: MEPERIDINE (DEMEROL) INJ 50 MG/ML IVP ONE (09:00)
[2020-10-31] MEDS ORDERED: HYDROmorphone 2 MG/ML VIAL (DILAUDID) ONE (09:11)
--- NOTE | 2020-10-31 10:12 | Progress Note-Post Operative ---
Post-Operative Progess Note Surgeon (s)/Termite Control Servicer (s) Surgeon SLIM LOPEZ DO Termite Control Servicer: SUSHIL Kumar Pre-Operative Diagnosis Osteomyelitis 1st toe right foot Post-Operative Diagnosis same Procedure & Operative Findings Date of Procedure 10/31/20 Procedure Performed/Findings Amputation at phalangeal-metatarsal joint Anesthesia Type LMA Estimated Blood Loss Estimated blood loss (mL): scant Specimens/Packing Specimens Removed Right 1st toe SLIM LOPEZ DO Oct 31, 2020 10:12
--- NOTE | 2020-10-31 10:28 | Anesthesia-General Post-Op ---
General Patient Condition Mental Status/LOC: Same as Preop Cardiovascular: Satisfactory Nausea/Vomiting: Absent Respiratory: Satisfactory Pain: Controlled Complications: Absent Post Op Complications Complications None Follow Up Care/Instructions Patient Instructions None needed. Anesthesia/Patient Condition Patient Condition Patient is doing well, no complaints, stable vital signs, no apparent adverse anesthesia problems. No complications reported per nursing. NBA HOLLIDAY CRNA Oct 31, 2020 10:28
[2020-10-31] MEDS: meTOprolol TARTRATE 25 MG (LOPRESSOR) TABLET PO SCH ×2 (11:26→21:27)
[2020-10-31] MEDS: HYDROcodone/APAP 5 MG/325 MG (LORTAB) TAB PO PRN (12:10)
--- NOTE | 2020-10-31 13:43 | OPERATIVE REPORT ---
DATE OF SERVICE: 10/31/2020 PREOPERATIVE DIAGNOSIS: Osteomyelitis, right first toe. POSTOPERATIVE DIAGNOSIS: Osteomyelitis, right first toe, pending pathology. PROCEDURE: Amputation of right first toe at the phalangeal metatarsal joint. SURGEON: Diego Cuevas DO FOOD SAFETY FIELD SPECIALIST: Jessika Blum MS4. ANESTHESIA: LMA. SPECIMEN: Right first toe. BLOOD LOSS: Scant. FLUIDS: Per anesthesia. POSTOPERATIVE CONDITION: Stable. INDICATION FOR PROCEDURE: The patient is a 50-year-old male who unfortunately has uncontrolled diabetes. Has already had an amputation of the base of the left foot transmetatarsal amputation and the patient now has osteomyelitis in the first toe on the right foot. FINDINGS: The patient had osteomyelitis, first toe amputated. Sent to pathology. PROCEDURE NOTE: After informed consent was obtained, the patient was brought to the operating room, placed on the operating table in supine position, sterilely prepped and draped in normal fashion. Lidocaine was used to perform a foot block as well as a digital block. I then used a #15 blade to make incision around the first toe at the base then used Bovie electrocautery to cut down through the tissue down to the phalangeal metatarsal joint, able to start cutting around and removed this first toe right at the phalangeal metatarsal joint. Hemostasis obtained using Bovie electrocautery. Copiously irrigated with normal saline, then I could not close this. The patient has a very edematous foot. Elected to pack with iodoform, 4 x 4s and then Kerlix and Coban dressing. The patient tolerated the procedure. Sponge, instrument and needle count correct at the end of the case. Job ID: [id number] DocumentID: [id number] Dictated Date: 10/31/2020 10:15:26 Assignment Officer Date: 10/31/2020 13:43:03 Dictated By: DIEGO CUEVAS DO
[2020-10-31] MEDS: fluCOnazole (DIFLUCAN) 100 MG TAB PO SCH (17:07)
[2020-11-01] MEDS: PIPERACILLIN/TAZO 4.5 GM/NS 100 ML IV SCH ×8 (00:03→23:40)
[2020-11-01 05:03] LABS: BASOPHILS # (AUTO) 0.1 10^3/uL (0.0-0.1); BASOPHILS % (AUTO) 1 % (0-10); EOSINOPHILS # (AUTO) 0.2 10^3/uL (0.0-0.3); EOSINOPHILS % (AUTO) 2 % (0-10); HEMATOCRIT 34 % (40-54); HEMOGLOBIN 10.7 g/dL (13.3-17.7); LYMPHOCYTES # (AUTO) 1.9 10^3/uL (1.0-4.0); LYMPHOCYTES % (AUTO) 23 % (12-44); MEAN CORPUSCULAR HEMOGLOBIN 27 pg (25-34); MEAN CORPUSCULAR HGB CONC 31 g/dL (32-36); MEAN CORPUSCULAR VOLUME 86 fL (80-99); MEAN PLATELET VOLUME 9.3 fL (9.0-12.2); MONOCYTES # (AUTO) 0.4 10^3/uL (0.0-1.0); MONOCYTES % (AUTO) 5 % (0-12); NEUTROPHILS # (AUTO) 5.6 10^3/uL (1.8-7.8); NEUTROPHILS % (AUTO) 68 % (42-75); PLATELET COUNT 355 10^3/uL (130-400); WHITE BLOOD COUNT 8.3 10^3/uL (4.3-11.0)
[2020-11-01 05:28] LABS: ALANINE AMINOTRANSFERASE 11 U/L (0-55); ALBUMIN 2.8 GM/DL (3.2-4.5); ALKALINE PHOSPHATASE 55 U/L (40-136); BILIRUBIN,TOTAL 0.2 MG/DL (0.1-1.0); BUN/CREATININE RATIO 11; CALCIUM 8.6 MG/DL (8.5-10.1); CARBON DIOXIDE 22 MMOL/L (21-32); CHLORIDE 105 MMOL/L (98-107); CREATININE SERUM 0.97 MG/DL (0.60-1.30); GFR ESTIMATED > 60; GLUCOSE 155 MG/DL (70-105); POTASSIUM 4.5 MMOL/L (3.6-5.0); SODIUM 137 MMOL/L (135-145); TOTAL PROTEIN 7.4 GM/DL (6.4-8.2)
[2020-11-01] MEDS: inSUlin ASPART (NovoLOG) 1 UNIT/0.01 ML (CHARGE PER UNIT) SC SCH ×4 (06:20→20:41)
[2020-11-01] MEDS: VANCOMYCIN 1500 MG/NS 500 ML IVPB IV SCH ×2 (06:22)
[2020-11-01 08:00] VITALS: BP 149/92
[2020-11-01] MEDS: meTOprolol TARTRATE 25 MG (LOPRESSOR) TABLET PO SCH ×2 (08:00→20:41)
--- NOTE | 2020-11-01 09:39 | Progress Note - Surgery ---
TREVER LANDAVERDE MED STUDENT 11/01/20 0939: Subjective Date Seen by a Provider: Nov 01, 2020 Time Seen by a Provider: 06:35 Subjective/Events-last exam Zachariah Stanton states he has his same chronic intermittent nerve pain from the feet but denies new pain. He denies fever, chills, abdominal pain, SOB, and cough. Focused Exam Lactate Level 10/29/20 15:30: Lactic Acid Level 1.22 Objective Exam Vital Signs Date Time Temp Pulse Resp B/P (MAP) Pulse Ox O2 Delivery O2 Flow Rate FiO2 11/01/20 08:00 36.9 85 18 149/92 (111) 96 Room Air 11/01/20 08:00 Room Air 11/01/20 08:00 36.9 85 18 149/92 (111) 96 Room Air 11/01/20 03:44 36.4 78 16 136/81 (99) 97 Room Air 10/31/20 23:59 36.6 79 16 142/89 (106) 99 Room Air 10/31/20 20:00 Room Air 10/31/20 19:00 36.6 85 18 147/83 (104) 100 Room Air 10/31/20 15:37 36.5 85 18 150/87 (108) 99 Room Air 10/31/20 11:41 35.9 81 18 144/89 (107) 97 Room Air 10/31/20 11:05 36.2 14 136/84 (101) 97 Room Air 10/31/20 11:05 Room Air 10/31/20 11:00 Room Air 10/31/20 10:55 14 140/88 (105) 100 Room Air 10/31/20 10:50 14 138/89 (105) 100 Room Air 10/31/20 10:45 OxyMask 3 10/31/20 10:40 14 141/86 (104) 100 OxyMask 3 10/31/20 10:30 18 115/79 (91) 100 OxyMask 5 10/31/20 10:30 OxyMask 5 10/31/20 10:20 16 115/73 (87) 99 OxyMask 8 10/31/20 10:19 36.1 16 115/73 (87) 99 OxyMask 8 10/31/20 10:19 OxyMask 8 I & O 11/01/20 07:00 Intake Total 2207 ml Output Total 3075 ml Balance -868 ml Capillary Refill : Less Than 3 SecondsLess Than 3 Seconds General Appearance: No Apparent Distress, WD/WN, Chronically ill HEENT: PERRL/EOMI, Normal ENT Inspection, Pharynx Normal, Moist Mucous Membranes Neck: Full Range of Motion, Normal Inspection, Non Tender Respiratory: Chest Non Tender, Lungs Clear, Normal Breath Sounds, No Accessory Muscle Use, No Respiratory Distress Cardiovascular: Regular Rate, Rhythm, No Murmur Gastrointestinal: normal bowel sounds, non tender, soft Extremity: Normal Capillary Refill, Normal Inspection, Normal Range of Motion, Non Tender, No Calf Tenderness, Pedal Edema (trace bilaterally), Other (Left midfoot amputation. Right foot wrapped in dressing. 4x Ulcers to right medial leg ) Neurologic/Psychiatric: Alert, Oriented x3 Skin: Normal Color, Warm/Dry Lymphatic: No Adenopathy Results Lab Laboratory Tests 10/31/20 11:17: Glucometer 108 10/31/20 15:38: Glucometer 268H 10/31/20 21:15: Glucometer 164H 11/01/20 04:50: White Blood Count 8.3, Red Blood Count 4.00L, Hemoglobin 10.7L, Hematocrit 34L, Mean Corpuscular Volume 86, Mean Corpuscular Hemoglobin 27, Mean Corpuscular Hemoglobin Concent 31L, Red Cell Distribution Width 12.8, Platelet Count 355, Mean Platelet Volume 9.3, Immature Granulocyte % (Auto) 1, Neutrophils (%) (Auto) 68, Lymphocytes (%) (Auto) 23, Monocytes (%) (Auto) 5, Eosinophils (%) (Auto) 2, Basophils (%) (Auto) 1, Neutrophils # (Auto) 5.6, Lymphocytes # (Auto) 1.9, Monocytes # (Auto) 0.4, Eosinophils # (Auto) 0.2, Basophils # (Auto) 0.1, Immature Granulocyte # (Auto) 0.1, Sodium Level 137, Potassium Level 4.5, Chloride Level 105, Carbon Dioxide Level 22, Anion Gap 10, Blood Urea Nitrogen 11, Creatinine 0.97, Estimat Glomerular Filtration Rate > 60, BUN/Creatinine Ratio 11, Glucose Level 155H, Calcium Level 8.6, Corrected Calcium 9.6, Total Bilirubin 0.2, Aspartate Amino Transf (AST/SGOT) 22, Alanine Aminotransferase (ALT/SGPT) 11, Alkaline Phosphatase 55, Total Protein 7.4, Albumin 2.8L Microbiology 10/29/20 MRSA Screen - Final, Complete MRSA not isolated 10/29/20 Urine Culture - Preliminary, Resulted YEAST Klebsiella oxytoca See Comments 10/29/20 Blood Culture - Preliminary, Resulted No growth 10/29/20 Gram Stain - Final, Resulted 10/29/20 Wound Culture - Preliminary, Resulted Gram Pos Mixed Bacterial Nancy Streptococcus pyogenes Grp A See Comments Assessment/Plan Assessment/Plan Assessment/Plan Osteomyelitis and nondisplaced fracture, 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 Plan for wound vac application today. Ulcers to bilateral feet and pressure ulcers, lower back -continue local wound care DM -poorly controlled at home due primarily to medication noncompliance -blood sugars consistently down to 150-200 here. SOB, productive cough - resolved -did admit to these on initial exam -denies currently SLIM CUEVAS DO 11/01/20 1502: Subjective Time Seen by a Provider: 13:31 Subjective/Events-last exam Pt seen and examined, states he is doing fine. Wound care nurse has already come in and placed wound VAC Review of Systems Pulmonary: No Dyspnea, No Cough Cardiovascular: No: Chest Pain, Palpitations Gastrointestinal: No: Nausea, Vomiting, Abdominal Pain Objective Exam General Appearance: No Apparent Distress, WD/WN HEENT: Moist Mucous Membranes Respiratory: Lungs Clear, Normal Breath Sounds, No Accessory Muscle Use, No Respiratory Distress Cardiovascular: Regular Rate, Rhythm, No Murmur Gastrointestinal: non tender, soft Extremity: Pedal Edema (trace bilaterally), Other (Left midfoot amputation. Right foot with wound VAC on area where 1st toe was amputated. 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 Wound vac placed. Ulcers to bilateral feet and pressure ulcers, lower back -continue local wound care DM -poorly controlled at home due primarily to medication noncompliance -blood sugars consistently down to 150-200 here. SOB, productive cough - resolved -did admit to these on initial exam -denies currently Supervisory-Addendum Brief Verification & Attestation Participated in pt care: history, MDM, physical Personally performed: exam, history, MDM Care discussed with: Medical Student Procedures: n/a Verification and Attestation of Medical Student E/M Service A medical student performed and documented this service. I then reviewed and verified all information documented by the medical student and made modifications to such information, when appropriate. I personally performed a physical exam, medical decision making and then discussed any differences between the notes and made revisions as necessary to create one note. Silm Cuevas , 11/01/20 , 15:02 TREVER LANDAVERDE MED STUDENT Nov 01, 2020 09:39 SLIM CUEVAS DO Nov 01, 2020 15:02
[2020-11-01] MEDS: HYDROcodone/APAP 5 MG/325 MG (LORTAB) TAB PO PRN (10:59)
[2020-11-01 12:11] VITALS: BP 144/89
--- NOTE | 2020-11-01 14:43 | Physical Therapy Evaluation ---
PT Evaluation-General Medical Diagnosis Admission Date Oct 29, 2020 at 17:13 Medical Diagnosis: UTI/osteomyelitis right great toe Onset Date: Oct 29, 2020 Therapy Diagnosis Therapy Diagnosis: debility/weakness Precautions Precautions/Isolations: Fall Prevention, Standard Precautions Weight Bear Status Right Lower Extremity: Right Touch Toe Bearing Left Lower Extremity: Left Full Weight Bearing right heel contact with surgical shoe in place (wound vac right foot) Referral Physician: Phil Reason for Referral: Evaluation/Treatment Medical History Pertinent Medical History: DM Additional Medical History Covid 04/2020; left transmetatarsal amputation (2017) Current History ER secondary to left foot wound/s/p right great toe amputation Reviewed History: Yes Social History Home: Apartment Current Living Status: Alone Entry Into Home: Elevator Prior Prior Level of Function SCALE: Activities may be completed with or without assistive devices. 5-Tvjeezwapn-hkiqaev completes the activity by him/herself with no assistance from a helper. 5-Set-up or Clean-up Assistance-helper sets up or cleans up; patient completes activity. [place] assists only prior to or following the activity. 4-Supervision or Touching Assistance-helper provides verbal cues and/or touching/steadying and/or contact guard assistance as patient completes activity. Assistance may be provided throughout the activity or intermittently. 3-Partial/Moderate Assistance-helper does LESS THAN HALF the effort. [place] lifts, holds or supports trunk or limbs, but provides less than half the effort. 2-Substantial/Maximal Assistance-helper does MORE THAN HALF the effort. [place] lifts or holds trunk or limbs and provides more than half the effort. 3-Xlcfuaggu-sbblpj does ALL the effort. Patient does none of the effort to complete the activity. Or, the assistance of 2 or more helpers is required for the patient to complete the activity. If activity was not attempted, code reason: 7-Patient Refused. 9-Not Applicable-not attempted and the patient did not perform the activity be fore the current illness, exacerbation or injury. 10-Not Attempted due to Environmental Limitations-(lack of equipment, weather restraints, etc.). 88-Not Attempted due to Medical Conditions or Safety Concerns. Bed Mobility: 6 Transfers (B,C,W/C): 6 Gait: 6 Stairs: 9 Indoor Mobility (Ambulation): Independent Stairs: Not [place] Prior Devices Use: Walker PT Evaluation-Current Subjective Patient agrees to PT. Pain Numeric Pain Scale: 0-No Pain Location: No Pain Reported Objective Patient Orientation: Person, Time, Situation ROM/Strength ROM Lower Extremities bilateral LE WFL (left foot plantarflexion contracture due to transmetatarsal amputation) Strength Lower Extremities left LE 3+/5 grossly/right LE 3/5 grossly Integumentary/Posture Integumentary refer to nursing notes Bowel Incontinence: No Bladder Incontinence: No Posture WFL Neuromuscular (Tone, Coordination, Reflexes) grossly intact Sensory Vision: Wears Glasses Hearing: Functional Sensation Right Lower Extremit: Impaired Sensation Left Lower Extremity: Impaired Transfers Roll Left to Right (QC): 6 Sit to Lying (QC): 6 Lying to Sitting/Side of Bed(Q: 6 Sit to Stand (QC): 3 Chair/Ccx-cq-Fzpgh Xfer(QC): 7 Toilet Transfer (QC): 7 Gait Does the Patient Walk?: No and Walking Goal IS indicated Mode of Locomotion: Both Anticipated Mode of Locomotion: Both Gait Assistive Device: FWW Balance Sitting Static: Normal Sitting Dynamic: Normal Standing Static: Fair Standing Dynamic: Fair Assessment/Needs 50 y.o. male, will benefit from skilled PT to address functional strength and mobility to improve current LOF. Patient may benefit from w/c due to restricted weight bearing right foot and amputation left foot. w/c for safety and healing Rehab Potential: Fair PT Snf Goals Scallop Dredger Goals PT Scallop Dredger Goals Time Frame: November 20, 2020 Roll Left & Right (QC): 6 Sit to Lying (QC): 6 Lying-Sitting on Side/Bed(QC): 6 Sit to Stand (QC): 6 Chair/Aad-jw-Ehwny Xfer(QC): 6 Toilet Transfer (QC): 6 Walk 10 feet (QC): 4 Walk 50ft with 2 Turns (QC): 88 Walk 150 ft (QC): 88 1 Step (curb) (QC): 9 4 Steps (QC): 9 12 Steps (QC): 9 Picking up an Object (QC): 6 (seated position) Does the Pt use WC or Scooter?: Yes Wheel 50 feet with 2 turns (QC: 6 Type: Manual Wheel 150 feet: 6 Type: Manual PT Plan Problem List Problem List: Activity Tolerance, Functional Strength, Safety, Balance, Gait, Transfer Treatment/Plan Treatment Plan: Continue Plan of Care Treatment Plan: Education, Functional Activity [place], Functional Strength, Gait, Safety, Therapeutic Exercise, Transfers Treatment Duration: November 20, 2020 Frequency: 6 times per week Estimated Hrs Per Day: .25 hour per day Patient and/or Family Agrees t: Yes Time/GCodes Time In: 1415 Time Out: 1430 Total Billed Treatment Time: 15 Total Billed Treatment 1 visit EVModC 15 min FRANKLIN NAVARRO PT Nov 01, 2020 14:43
--- NOTE | 2020-11-01 15:46 | Occupational Therapy Eval ---
OT Evaluation-General/PLF Medical Diagnosis Admission Date Oct 29, 2020 at 17:13 Medical Diagnosis: UTI/osteomyelitis right great toe Onset Date: Oct 29, 2020 Therapy Diagnosis Therapy Diagnosis: Weakness, Decreased ADL skills Precautions Precautions/Isolations: Fall Prevention, Standard Precautions Weight Bear Status Weight Bearing Restriction: Partial Weight Bearing Location Restriction: R LE Pt. to bear weight in right heel only due to wound opening earlier today. Pt. also has wound vac on now. Referral Physician: Phil Referral Reason: Activity Tolerance, Self Care, Evaluation/Treatment, Strengthening/ROM Medical History Pertinent Medical History: DM Additional Medical History DKA, Cellulitis, osteomyelitis, Partial amputation left foot. Current History Pt. came to ER with sugars over 500. Pt. had right great toe amputated 10-31-20. Wound opened on 11-01. Wound vac placed 11-01. Reviewed History: Yes Social History Home: Apartment Current Living Status: Alone Entry Into Home: Elevator ADL-Prior Level of Function SCALE: Activities may be completed with or without assistive devices. 6-Hsmkgfebms-rigojse completes the activity by him/herself with no assistance from a helper. 5-Set-up or Clean-up Assistance-helper sets up or cleans up; patient completes activity. [place] assists only prior to or following the activity. 4-Supervision or Touching Assistance-helper provides verbal cues and/or touching/steadying and/or contact guard assistance as patient completes activity. Assistance may be provided throughout the activity or intermittently. 3-Partial/Moderate Assistance-helper does LESS THAN HALF the effort. [place] lifts, holds or supports trunk or limbs, but provides less than half the effort. 2-Substantial/Maximal Assistance-helper does MORE THAN HALF the effort. [place] lifts or holds trunk or limbs and provides more than half the effort. 7-Bnvxlpukw-armlke does ALL the effort. Patient does none of the effort to complete the activity. Or, the assistance of 2 or more helpers is required for the patient to complete the activity. If activity was not attempted, code reason: 7-Patient Refused. 9-Not Applicable-not attempted and the patient did not perform the activity before the current illness, exacerbation or injury. 10-Not Attempted due to Environmental Limitations-(lack of equipment, weather restraints, etc.). 88-Not Attempted due to Medical Conditions or Safety Concerns. ADL PLOF Comments Pt. states that he was independent with daily skills. Pt. uses walker with 4 wheels at home. Does not drive but has rides to get his groceries. Pt. lives in [facility]. Pt. has diabetic shoes from 2 years ago, but states that he needs new ones. Shoes were fit specifically to him as he had a partial amputation of left foot approximately 5 years ago. Self Care: Independent Functional Cognition: Unknown DME/Equipment Comments 4 ww. OT Current Status Subjective No pain reported. Pt. does verbalize that he is afraid of splitting wound again. Nursing aware therapy getting pt. up. Mental Status/Objective Patient Orientation: Person, Place Current Glasses/Contacts: Yes Upper Extremity ROM WFL ADL-Treatment Eating (QC): 6 (per clinical judgement) On/Off Footwear (QC): 2 (Therapy donned left sock and right post op shoe) Other Treatments OT/PT co-treated due to pt's need for skilled assistance x 2. OT addressed ADL skills and wound vac management while PT addressed mobility and transfers. Pt. able to transfer supine-sit with SBA. Pt. is able to stand at bedside with mod x 2, with encouragement to keep weight on right LE only through heel, and not through ball of foot. Pt. able to do, but requests to sit, and then lay back down. Transfers sit-supine with SBA. All needs met. Education OT Patient Education: Correct positioning, Modified ADL techniques, Progress toward Goal/Update tx plan, Purpose of tx/functional activities, Reviewed precautions, Rehab process, Transfer techniques Teaching Recipient: Patient Teaching Methods: Demonstration, Discussion Response to Teaching: Verbalize Understanding, Return Demonstration OT Short Term Goals Short Term Goals Time Frame: November 08, 2020 Eatin Oral hygiene: 5 Toileting hygiene: 4 Shower/bathe self: 3 Upper body dressin Lower body dressin Putting on/taking off footwear: 3 OT Address Change Clerk Goals Address Change Clerk Goals Time Frame: November 15, 2020 Eating (QC): 6 Oral Hygiene (QC): 6 Toileting Hygiene (QC): 6 Shower/Bathe Self (QC): 4 Upper Body Dressing (QC): 6 Lower Body Dressing (QC): 6 On/Off Footwear (QC): 6 Additional Goals: 1-Demonstrate ADL Tasks, 2-Verbalize Understanding, 3- ImproveStrength/[place] 1=Demonstrate adherence to instructed precautions during ADL tasks. 2=Patient will verbalize/demonstrate understanding of assistive devices/modifications for ADL. 3=Patient will improve strength/tolerance for activity to enable patient to perform ADL's. OT Education/Plan Problem List/Assessment Assessment: Decreased Activ Tolerance, Dependent Transfers, Impaired Bed Mobility, Impaired I ADL's, Impaired Self-Care Skills Discharge Recommendations Plan/Recommendations: Continue POC Therapy Discharge Recommendati: Post Acute OT Treatment Plan/Plan of Care Treatment,Training & Education: Yes Patient would benefit from OT for education, treatment and training to promote independence in ADL's, mobility, safety and/or upper extremity function for ADL's. Plan of Care: ADL Retraining, Functional Mobility, UE Funct Exercise/Act Treatment Duration: November 15, 2020 Frequency: 5 times per week Estimated Hrs Per Day: .25 hour per day Agreement: Yes Rehab Potential: Good Time/GCodes Start Time: 14:24 Stop Time: 14:33 Total Time Billed (hr/min): 11 Billed Treatment Time 1, SERGO IQBAL OT Nov 01, 2020 15:46
--- NOTE | 2020-11-01 16:06 | Progress Note ---
Subjective Subjective/Events-last exam Afebrile, denies concerns, pain is controlled. Wound vac in place on amputation site. Objective Exam Last Set of Vital Signs Vital Signs Date Time Temp Pulse Resp B/P (MAP) Pulse Ox O2 Delivery O2 Flow Rate FiO2 11/01/20 12:11 36.9 77 20 144/89 (107) 96 Room Air 10/31/20 10:45 3 Capillary Refill : Less Than 3 SecondsLess Than 3 Seconds I&O Intake and Output 11/01/20 00:00 Intake Total 2207 ml Output Total 2425 ml Balance -218 ml Intake Oral 2207 ml Output Urine Total 2425 ml General: Alert, No Acute Distress Lungs: Clear to Auscultation, Normal Air Movement Heart: Regular Rate, No Murmurs Abdomen: Normal Bowel Sounds, Soft Extremities: Other (wound vac in place to great toe amputation site) Neuro: Normal Speech Results/Procedures Lab Laboratory Tests 10/31/20 21:15: Glucometer 164H 11/01/20 04:50: White Blood Count 8.3, Red Blood Count 4.00L, Hemoglobin 10.7L, Hematocrit 34L, Mean Corpuscular Volume 86, Mean Corpuscular Hemoglobin 27, Mean Corpuscular Hemoglobin Concent 31L, Red Cell Distribution Width 12.8, Platelet Count 355, Mean Platelet Volume 9.3, Immature Granulocyte % (Auto) 1, Neutrophils (%) (Auto) 68, Lymphocytes (%) (Auto) 23, Monocytes (%) (Auto) 5, Eosinophils (%) (A uto) 2, Basophils (%) (Auto) 1, Neutrophils # (Auto) 5.6, Lymphocytes # (Auto) 1.9, Monocytes # (Auto) 0.4, Eosinophils # (Auto) 0.2, Basophils # (Auto) 0.1, Immature Granulocyte # (Auto) 0.1, Sodium Level 137, Potassium Level 4.5, Chloride Level 105, Carbon Dioxide Level 22, Anion Gap 10, Blood Urea Nitrogen 11, Creatinine 0.97, Estimat Glomerular Filtration Rate > 60, BUN/Creatinine Ratio 11, Glucose Level 155H, Calcium Level 8.6, Corrected Calcium 9.6, Total Bilirubin 0.2, Aspartate Amino Transf (AST/SGOT) 22, Alanine Aminotransferase (ALT/SGPT) 11, Alkaline Phosphatase 55, Total Protein 7.4, Albumin 2.8L 11/01/20 12:06: Glucometer 198H Microbiology 10/29/20 MRSA Screen - Final, Complete MRSA not isolated 10/29/20 Urine Culture - Preliminary, Resulted YEAST Klebsiella oxytoca See Comments 10/29/20 Blood Culture - Preliminary, Resulted No growth 10/29/20 Gram Stain - Final, Complete 10/29/20 Wound Culture - Final, Complete Gram Pos Mixed Bacterial Nancy Streptococcus pyogenes Grp A See Comments Radiology Date of Exam:10/29/20 FOOT, RIGHT, 3 VIEW EXAMINATION: Right foot radiographs, 3 views. COMPARISON: None. HISTORY: 50-year-old male, osteomyelitis of the great toe. FINDINGS: There is soft tissue swelling at the level of the first digit proximal and distal phalanges. There is bone remodeling of the first distal phalanx which appears likely long-standing. There is a nondisplaced fracture involving the lateral aspect of the base of the first distal phalanx. There is bone destruction involving the distal aspect of the first proximal phalanx with pathologic fracture. There is abnormal increased attenuation in the adjacent soft tissues medially. There is degenerative type calcaneal enthesopathy. There is mild tibiotalar osteoarthritis. IMPRESSION: 1. Osteomyelitis involving at least the distal aspect of the first proximal phalanx with pathologic fracture. 2. Most likely chronic appearing remodeling of the first distal phalanx. Nondisplaced fracture of the lateral aspect of the base of the first distal phalanx. Dictated by: Dictated on workstation # [id number] Dict: 10/29/20 1602 Trans: 10/29/201 [facility] [id number] Interpreted by: AZAEL SMITH MD Electronically signed by: AZAEL SMITH MD 10/29/20 1707 Assessment/Plan Assessment/Plan (1) Diabetic ketoacidosis Status: Resolved Assessment & Plan: Ketoacidosis resolved, continue insulin and diabetic diet (2) Osteomyelitis of toe of right foot Status: Acute Assessment & Plan: s/p amputation, d/c antibiotics when okay with surgery. (3) Urinary tract infection Status: Acute Assessment & Plan: Yeast (unclear if infection), small amount of klebsiella oxytoca, >100,000 alloscardovia omnicolens not clearly pathogenic. On abx currently for osteo. (4) DVT prophylaxis Status: Acute Assessment & Plan: Enoxaparin on hold due to surgery, resume when okay with surgery MIKEY NIETO MD Nov 01, 2020 16:06
[2020-11-01 16:20] VITALS: BP 149/80
[2020-11-01] MEDS: VANCOMYCIN 1 GM/NS 250 ML IVPB IV SCH ×2 (18:26)
[2020-11-01 20:00] VITALS: BP 145/73
[2020-11-02 00:15] VITALS: BP 142/87
[2020-11-02 04:11] VITALS: BP 153/83
[2020-11-02 05:51] LABS: HEMOGLOBIN 10.1 g/dL (13.3-17.7); MEAN PLATELET VOLUME 9.3 fL (9.0-12.2); WHITE BLOOD COUNT 8.5 10^3/uL (4.3-11.0)
[2020-11-02] MEDS: VANCOMYCIN 1 GM/NS 250 ML IVPB IV SCH ×2 (06:21)
[2020-11-02] MEDS: inSUlin ASPART (NovoLOG) 1 UNIT/0.01 ML (CHARGE PER UNIT) SC SCH ×4 (06:22→20:58)
[2020-11-02 07:10] VITALS: BP 165/96
--- NOTE | 2020-11-02 07:16 | Progress Note - Surgery ---
TREVER LANDAVERDE MED STUDENT 11/02/20 0716: Subjective Date Seen by a Provider: Nov 02, 2020 Time Seen by a Provider: 06:52 Subjective/Events-last exam Mayito is sleeping comfortably in the room. No complaint of pain. I spoke to him at 0710 as well. He denied fever or chills, denied pain beyond his normal intermittent neuropathy. Objective Exam Vital Signs Date Time Temp Pulse Resp B/P (MAP) Pulse Ox O2 Delivery O2 Flow Rate FiO2 11/02/20 04:11 36.4 79 20 153/83 (106) 96 Room Air 11/02/20 00:15 36.6 79 20 142/87 (105) 97 Room Air 11/01/20 20:40 Room Air 11/01/20 20:00 36.8 85 20 145/73 (97) 99 Room Air 11/01/20 16:20 36.2 86 20 149/80 (103) 99 Room Air 11/01/20 12:11 36.9 77 20 144/89 (107) 96 Room Air 11/01/20 08:00 36.9 85 18 149/92 (111) 96 Room Air 11/01/20 08:00 Room Air 11/01/20 08:00 36.9 85 18 149/92 (111) 96 Room Air I & O 11/02/20 07:00 Intake Total 2255 ml Output Total 3800 ml Balance -1545 ml Capillary Refill : Less Than 3 SecondsLess Than 3 Seconds General Appearance: No Apparent Distress, WD/WN HEENT: Moist Mucous Membranes Neck: Full Range of Motion, Normal Inspection, Non Tender Respiratory: Lungs Clear, Normal Breath Sounds, No Accessory Muscle Use, No Respiratory Distress Cardiovascular: Regular Rate, Rhythm, No Murmur Gastrointestinal: non tender, soft Extremity: Pedal Edema (trace bilaterally), Other (Left midfoot amputation. Right foot with wound VAC on area where 1st toe was amputated. 4x Ulcers to right medial leg ) Neurologic/Psychiatric: Alert, Oriented x3 Skin: Normal Color, Warm/Dry Lymphatic: No Adenopathy Results Lab Laboratory Tests 11/01/20 12:06: Glucometer 198H 11/01/20 16:17: Glucometer 181H 11/01/20 20:34: Glucometer 202H 11/02/20 05:16: White Blood Count 8.5, Red Blood Count 3.75L, Hemoglobin 10.1L, Hematocrit 32L, Mean Corpuscular Volume 86, Mean Corpuscular Hemoglobin 27, Mean Corpuscular Hemoglobin Concent 31L, Red Cell Distribution Width 12.7, Platelet Count 376, Mean Platelet Volume 9.3 11/02/20 06:19: Glucometer 82 Microbiology 10/29/20 MRSA Screen - Final, Complete MRSA not isolated 10/29/20 Urine Culture - Preliminary, Resulted YEAST Klebsiella oxytoca See Comments 10/29/20 Blood Culture - Preliminary, Resulted No growth 10/29/20 Gram Stain - Final, Complete 10/29/20 Wound Culture - Final, Complete Gram Pos Mixed Bacterial Nancy Streptococcus pyogenes Grp A See Comments Assessment/Plan Assessment/Plan Assessment/Plan Osteomyelitis and nondisplaced fracture, 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 Wound vac placed. Ulcers to bilateral feet and pressure ulcers, lower back -continue local wound care DM -poorly controlled at home due primarily to medication noncompliance -blood sugars consistently down to 150-200 here. -medical social consultant is working to determine the best adjunct faculty for medical terminology living situation for the patient JESSICASLIMDARNELL Crawford DO 11/02/20 0903: Subjective Time Seen by a Provider: 07:10 Subjective/Events-last exam Pt seen and examined, no new complaints. Review of Systems General: No Chills; Fatigue Cardiovascular: No: Chest Pain, Palpitations Musculoskeletal: No: leg pain, foot pain Objective Exam General Appearance: No Apparent Distress, WD/WN Respiratory: Lungs Clear, Normal Breath Sounds, No Accessory Muscle Use, No Respiratory Distress Cardiovascular: Regular Rate, Rhythm, No Murmur Extremity: Pedal Edema (trace bilaterally), Other (Left midfoot amputation. Right foot with wound VAC on area where 1st toe was amputated. 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 Continue wound VAC Ulcers to bilateral feet and pressure ulcers, lower back -continue local wound care DM -poorly controlled at home due primarily to medication noncompliance -blood sugars consistently down to 150-200 here. -medical social consultant is working to determine the best adjunct faculty for medical terminology living situation for the patient Supervisory-Addendum Brief Verification & Attestation Participated in pt care: history, MDM, physical Personally performed: exam, history, MDM Care discussed with: Medical Student Procedures: n/a Verification and Attestation of Medical Student E/M Service A medical student performed and documented this service in my presence. I reviewed and verified all information documented by the medical student and made modifications to such information, when appropriate. I personally performed the physical exam and medical decision making. Slim Cuevas, Nov 02, 2020,09:03 TREVER LANDAVERDE MED STUDENT Nov 02, 2020 07:16 SLIM CUEVAS DO Nov 02, 2020 09:03
[2020-11-02] MEDS: PIPERACILLIN/TAZO 4.5 GM/NS 100 ML IV SCH ×2 (07:51)
[2020-11-02] MEDS: meTOprolol TARTRATE 25 MG (LOPRESSOR) TABLET PO SCH ×2 (07:51→20:58)
[2020-11-02] MEDS: AMOXICILLIN 500 MG (POLYMOX) CAP PO SCH ×3 (09:39→20:58)
--- NOTE | 2020-11-02 11:28 | Physical Therapy Daily Note ---
PT Daily Note-Current Subjective Patient in bed pre tx, agrees to PT, has no complaints of pain. Appearance Patient in recliner post tx with nurse call, phone, tray, legs elevated, patient instructed to call nurse if he needs to get out of the recliner and he agrees. Mental Status Patient Orientation: Person, Place, Situation wound vac Transfers SCALE: Activities may be completed with or without assistive devices. 4-Ozfwmeszjm-jbbeyas completes the activity by him/herself with no assistance from a helper. 5-Set-up or Clean-up Assistance-helper sets up or cleans up; patient completes activity. [place] assists only prior to or following the activity. 4-Supervision or Touching Assistance-helper provides verbal cues and/or touching/steadying and/or contact guard assistance as patient completes activity. Assistance may be provided throughout the activity or intermittently. 3-Partial/Moderate Assistance-helper does LESS THAN HALF the effort. [place] lifts, holds or supports trunk or limbs, but provides less than half the effort. 2-Substantial/Maximal Assistance-helper does MORE THAN HALF the effort. [place] lifts or holds trunk or limbs and provides more than half the effort. 4-Diskamhgu-xczehg does ALL the effort. Patient does none of the effort to complete the activity. Or, the assistance of 2 or more helpers is required for the patient to complete the activity. If activity was not attempted, code reason: 7-Patient Refused. 9-Not Applicable-not attempted and the patient did not perform the activity before the current illness, exacerbation or injury. 10-Not Attempted due to Environmental Limitations-(lack of equipment, weather restraints, etc.). 88-Not Attempted due to Medical Conditions or Safety Concerns. Roll Left & Right (QC): 6 Lying to Sitting/Side of Bed(Q: 6 Sit to Stand (QC): 3 Chair/Dsb-pd-Ecwun Xfer(QC): 4 Min assist for sit to stand and CGA for transfer to recliner. Patient wears a surgical shoe on the right side, he is aware he has to contact floor with heel instead of toes, it is hard to tell how compliant he is with keeping weight off of forefoot. 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 He did require some cues for hand placement and positioning. Weight Bearing Right Lower Extremity: Right Touch Toe Bearing Left Lower Extremity: Left Full Weight Bearing right heel contact with surgical shoe in place (wound vac right foot) Exercises Seated Therapy Exercises: Ankle pumps, Long arc quads Seated Reps: 20 Treatments bed mobility and transfers, LE exercise Assessment Current Status: Fair Progress Improved motivation. Patient has very little movement in either ankle and has questionable compliance with bearing weight on forefoot on right side. PT Rooming House Inspector Goals Rooming House Inspector Goals PT Longterm Goals Time Frame: November 20, 2020 Roll Left & Right (QC): 6 Sit to Lying (QC): 6 Lying-Sitting on Side/Bed(QC): 6 Sit to Stand (QC): 6 Chair/Ezv-eg-Kzkqo Xfer(QC): 6 Toilet Transfer (QC): 6 Walk 10 feet (QC): 4 Walk 50ft with 2 Turns (QC): 88 Walk 150 ft (QC): 88 1 Step (curb) (QC): 9 4 Steps (QC): 9 12 Steps (QC): 9 Picking up an Object (QC): 6 (seated position) Does the Pt use WC or Scooter?: Yes Wheel 50 feet with 2 turns (QC: 6 Type: Manual Wheel 150 feet: 6 Type: Manual PT Plan Problem List Problem List: Activity Tolerance, Functional Strength, Safety, Balance, Gait, Transfer, Bed Mobility, ROM Treatment/Plan Treatment Plan: Continue Plan of Care Treatment Plan: Education, Functional Activity Kodi, Functional Strength, Gait, Safety, Therapeutic Exercise, Transfers Treatment Duration: November 20, 2020 Frequency: 6 times per week Estimated Hrs Per Day: .25 hour per day Patient and/or Family Agrees t: Yes Safety Risks/Education Patient Education: Transfer Techniques, Reviewed Precautions, Correct Positioning, Safety Issues Teaching Recipient: Patient Teaching Methods: Demonstration, Discussion Response to Teaching: Reinforcement Needed Time/GCodes Time In: 1100 Time Out: 1112 Total Billed Treatment Time: 12 Total Billed Treatment 1 visit FA 12' TE HALL PT Nov 02, 2020 11:28
[2020-11-02 11:33] VITALS: BP 163/81
--- NOTE | 2020-11-02 11:54 | Occupational Ther Daily Note ---
OT Current Status-Daily Note Subjective No pain reported. Appearance Pt. alert and oriented. Agrees to work with OT. Mental Status/Objective Patient Orientation: Person, Place, Time, Situation ADL-Treatment Therapy Code Descriptions/Definitions Functional Frio Measure: 0=Not Assessed/NA 4=Minimal Assistance 1=Total Assistance 5=Supervision or Setup 2=Maximal Assistance 6=Modified Frio 3=Moderate Assistance 7=Complete IndependenceSCALE: Activities may be completed with or without assistive devices. 2-Gzrixhmhzv-tlbbrvy completes the activity by him/herself with no assistance from a helper. 5-Set-up or Clean-up Assistance-helper sets up or cleans up; patient completes activity. [place] assists only prior to or following the activity. 4-Supervision or Touching Assistance-helper provides verbal cues and/or touching/steadying and/or contact guard assistance as patient completes activity. Assistance may be provided throughout the activity or intermittently. 3-Partial/Moderate Assistance-helper does LESS THAN HALF the effort. [place] lifts, holds or supports trunk or limbs, but provides less than half the effort. 2-Substantial/Maximal Assistance-helper does MORE THAN HALF the effort. [place] lifts or holds trunk or limbs and provides more than half the effort. 7-Sdgrhgahq-bofdlq does ALL the effort. Patient does none of the effort to complete the activity. Or, the assistance of 2 or more helpers is required for the patient to complete the activity. If activity was not attempted, code reason: 7-Patient Refused. 9-Not Applicable-not attempted and the patient did not perform the activity before the current illness, exacerbation or injury. 10-Not Attempted due to Environmental Limitations-(lack of equipment, weather restraints, etc.). 88-Not Attempted due to Medical Conditions or Safety Concerns. Eating (QC): 6 (per pt) Oral Hygiene (QC): 5 (Set up to brush teeth and hair on side of bed.) Shower/Bathe Self (QC): 4 (SBA to complete sponge bath seated on side of bed. Pt. able to wash all parts, and able to wash peng area by leaning side to side.) Upper Body Dressing (QC): 88 (Donned fresh hospital gown due to wound vac on foot and IV.) On/Off Footwear: 4 (Pt. able to bring left foot up to him and doff/don slipper sock with SBA while seated.) Other Treatment Pt. agrees to work with OT. Pt. transfers carefully supine to sit with SBA. Pt. completes sponge bath on side of bed. Able to brush teeth seated after set up. OT washes pt's hair with shampoo cap, and pt. is able to brush hair on his own. Pt. is able to transfer self back into supine position, with comfortable positioning of right LE. All needs are met. Education OT Patient Education: Correct positioning, Modified ADL techniques, Progress toward Goal/Update tx plan, Purpose of tx/functional activities, Reviewed precautions, Rehab process, Transfer techniques Teaching Recipient: Patient Teaching Methods: Demonstration, Discussion Response to Teaching: Verbalize Understanding, Return Demonstration OT Short Term Goals Short Term Goals Time Frame: November 08, 2020 Eatin Oral hygiene: 5 Toileting hygiene: 4 Shower/bathe self: 3 Upper body dressin Lower body dressin Putting on/taking off footwear: 3 OT Usp Goals Usp Goals Time Frame: November 15, 2020 Eating (QC): 6 Oral Hygiene (QC): 6 Toileting Hygiene (QC): 6 Shower/Bathe Self (QC): 4 Upper Body Dressing (QC): 6 Lower Body Dressing (QC): 6 On/Off Footwear (QC): 6 Additional Goals: 1-Demonstrate ADL Tasks, 2-Verbalize Understanding, 3- ImproveStrength/Kodi 1=Demonstrate adherence to instructed precautions during ADL tasks. 2=Patient will verbalize/demonstrate understanding of assistive devices/modifications for ADL. 3=Patient will improve strength/tolerance for activity to enable patient to perform ADL's. OT Education/Plan Problem List/Assessment Assessment: Decreased Activ Tolerance, Impaired I ADL's, Impaired Self-Care Skills Discharge Recommendations Plan/Recommendations: Continue POC Therapy Discharge Recommendati: Post Acute OT Treatment Plan/Plan of Care Treatment,Training & Education: Yes Patient would benefit from OT for education, treatment and training to promote independence in ADL's, mobility, safety and/or upper extremity function for ADL's. Plan of Care: ADL Retraining, Functional Mobility, UE Funct Exercise/Act Treatment Duration: November 15, 2020 Frequency: 5 times per week Estimated Hrs Per Day: .25 hour per day Agreement: Yes Rehab Potential: Good Time/GCodes Start Time: 08:35 Stop Time: 09:00 Total Time Billed (hr/min): 25 Billed Treatment Time 1, ADL x 2 SERGO SANTA OT Nov 02, 2020 11:54
[2020-11-02] MEDS: HYDROcodone/APAP 5 MG/325 MG (LORTAB) TAB PO PRN (15:44)
[2020-11-02 16:00] VITALS: BP 167/88
--- NOTE | 2020-11-02 19:14 | Progress Note ---
Subjective Subjective/Events-last exam Afebrile, patient denies concerns. Objective Exam Last Set of Vital Signs Vital Signs Date Time Temp Pulse Resp B/P (MAP) Pulse Ox O2 Delivery O2 Flow Rate FiO2 11/02/20 16:00 36.5 82 20 167/88 (114) 99 Room Air 10/31/20 10:45 3 Capillary Refill : Less Than 3 SecondsLess Than 3 Seconds I&O Intake and Output 11/02/20 00:00 Intake Total 2255 ml Output Total 3800 ml Balance -1545 ml Intake Oral 2255 ml Output Urine Total 3800 ml # Bowel Movements 1 General: Alert, No Acute Distress Lungs: Clear to Auscultation, Normal Air Movement Heart: Regular Rate, No Murmurs Skin: Other (wound vac in place to great toe amputation site) Psych/Mental Status: Mood NL Results/Procedures Lab Laboratory Tests 11/01/20 20:34: Glucometer 202H 11/02/20 05:16: White Blood Count 8.5, Red Blood Count 3.75L, Hemoglobin 10.1L, Hematocrit 32L, Mean Corpuscular Volume 86, Mean Corpuscular Hemoglobin 27, Mean Corpuscular Hemoglobin Concent 31L, Red Cell Distribution Width 12.7, Platelet Count 376, Mean Platelet Volume 9.3 11/02/20 06:19: Glucometer 82 11/02/20 11:36: Glucometer 140H 11/02/20 16:14: Glucometer 213H Microbiology 10/29/20 MRSA Screen - Final, Complete MRSA not isolated 10/29/20 Urine Culture - Final, Complete YEAST Klebsiella oxytoca See Comments 10/29/20 Blood Culture - Preliminary, Resulted No growth 10/29/20 Gram Stain - Final, Complete 10/29/20 Wound Culture - Final, Complete Gram Pos Mixed Bacterial Nancy Streptococcus pyogenes Grp A See Comments Radiology Date of Exam:10/29/20 FOOT, RIGHT, 3 VIEW EXAMINATION: Right foot radiographs, 3 views. COMPARISON: None. HISTORY: 50-year-old male, osteomyelitis of the great toe. FINDINGS: There is soft tissue swelling at the level of the first digit proximal and distal phalanges. There is bone remodeling of the first distal phalanx which appears likely long-standing. There is a nondisplaced fracture involving the lateral aspect of the base of the first distal phalanx. There is bone destruction involving the distal aspect of the first proximal phalanx with pathologic fracture. There is abnormal increased attenuation in the adjacent soft tissues medially. There is degenerative type calcaneal enthesopathy. There is mild tibiotalar osteoarthritis. IMPRESSION: 1. Osteomyelitis involving at least the distal aspect of the first proximal phalanx with pathologic fracture. 2. Most likely chronic appearing remodeling of the first distal phalanx. Nondisplaced fracture of the lateral aspect of the base of the first distal phalanx. Dictated by: Dictated on workstation # [id number] Dict: 10/29/20 1602 Trans: 10/29/20 1701 PJE [id number] Interpreted by: AZAEL SMITH MD Electronically signed by: AZAEL SMITH MD 10/29/20 1702 Assessment/Plan Assessment/Plan (1) Diabetic ketoacidosis Status: Resolved Assessment & Plan: Ketoacidosis resolved, continue insulin and diabetic diet (2) Osteomyelitis of toe of right foot Status: Acute Assessment & Plan: s/p amputation, d/c antibiotics when okay with surgery. 11/02 changed to oral amoxicillin, wound vac continued. (3) Urinary tract infection Status: Acute Assessment & Plan: Yeast (unclear if infection), small amount of klebsiella oxytoca, >100,000 alloscardovia omnicolens not clearly pathogenic. On abx currently for osteo. 11/02 klebsiella resistant only to amp, has completed 5 days of zosyn. (4) DVT prophylaxis Status: Acute Assessment & Plan: Enoxaparin on hold due to surgery, resume when okay with surgery MIKEY NIETO MD Nov 02, 2020 19:14
[2020-11-02 19:48] VITALS: BP 140/81
[2020-11-03 00:14] VITALS: BP 149/88
[2020-11-03 03:58] VITALS: BP 153/92
[2020-11-03] MEDS: inSUlin ASPART (NovoLOG) 1 UNIT/0.01 ML (CHARGE PER UNIT) SC SCH ×4 (05:30→20:08)
--- NOTE | 2020-11-03 07:00 | Progress Note - Surgery ---
TREVER LANDAVERDE MED STUDENT 11/03/20 0700: Subjective Date Seen by a Provider: Nov 03, 2020 Time Seen by a Provider: 06:40 Subjective/Events-last exam Zachariah Stanton reports no leg pain, no fever, no chills, no nausea, no vomiting, no abdominal pain. Objective Exam Vital Signs Date Time Temp Pulse Resp B/P (MAP) Pulse Ox O2 Delivery O2 Flow Rate FiO2 11/03/20 03:58 36.2 81 18 153/92 (112) 96 Room Air 11/03/20 00:14 36.7 91 16 149/88 (108) 96 Room Air 11/02/20 20:58 Room Air 11/02/20 19:48 36.9 88 18 140/81 (100) 98 Room Air 11/02/20 16:00 36.5 82 20 167/88 (114) 99 Room Air 11/02/20 11:33 36.4 81 18 163/81 (108) 100 Room Air 11/02/20 08:00 Room Air 11/02/20 07:10 36.2 82 18 165/96 (119) 98 Room Air I & O 11/03/20 07:00 Intake Total 2590 ml Output Total 4675 ml Balance -2085 ml Capillary Refill : Less Than 3 SecondsLess Than 3 Seconds General Appearance: No Apparent Distress, WD/WN HEENT: Moist Mucous Membranes Neck: Full Range of Motion, Normal Inspection, Non Tender Respiratory: Lungs Clear, Normal Breath Sounds, No Accessory Muscle Use, No Respiratory Distress Cardiovascular: Regular Rate, Rhythm, No Murmur Gastrointestinal: non tender, soft Extremity: Pedal Edema (trace bilaterally), Other (Left midfoot amputation. Right foot with wound VAC on area where 1st toe was amputated. No signs of surrounding skin infection. 4x Ulcers to right medial leg ) Neurologic/Psychiatric: Alert, Oriented x3 Skin: Normal Color, Warm/Dry Lymphatic: No Adenopathy Results Lab Laboratory Tests 11/02/20 11:36: Glucometer 140H 11/02/20 16:14: Glucometer 213H 11/02/20 20:50: Glucometer 194H 11/03/20 05:17: Glucometer 154H Microbiology 10/29/20 MRSA Screen - Final, Complete MRSA not isolated 10/29/20 Urine Culture - Final, Complete YEAST Klebsiella oxytoca See Comments 10/29/20 Blood Culture - Preliminary, Resulted No growth 10/29/20 Gram Stain - Final, Complete 10/29/20 Wound Culture - Final, Complete Gram Pos Mixed Bacterial Nancy Streptococcus pyogenes Grp A See Comments Assessment/Plan Assessment/Plan Assessment/Plan Osteomyelitis and nondisplaced fracture, 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 Continue wound VAC -hold anticoagulants for wound vac Ulcers to bilateral feet and pressure ulcers, lower back -continue local wound care DM -poorly controlled at home due primarily to medication noncompliance -blood sugars consistently down to 150-200 here. -medical social consultant is working to determine the best medical terminologist living situation for the patient SLIM CUEVAS DO 11/03/20 1455: Subjective Time Seen by a Provider: 13:26 Subjective/Events-last exam Pt seen and examined, no new complaints. Review of Systems General: Fatigue Pulmonary: No Dyspnea, No Cough Cardiovascular: No: Chest Pain, Palpitations Gastrointestinal: No: Nausea, Vomiting, Abdominal Pain Objective Exam General Appearance: No Apparent Distress, WD/WN HEENT: Moist Mucous Membranes Respiratory: Lungs Clear, Normal Breath Sounds, No Accessory Muscle Use, No Respiratory Distress Cardiovascular: Regular Rate, Rhythm, No Murmur Extremity: Pedal Edema (trace bilaterally), Other (Left midfoot amputation. Rig ht foot with wound VAC on area where 1st toe was amputated. No signs of surrounding skin infection. 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 Continue wound VAC and change tomorrow -hold anticoagulants for wound vac Ulcers to bilateral feet and pressure ulcers, lower back -continue local wound care DM -poorly controlled at home due primarily to medication noncompliance -blood sugars consistently down to 150-200 here. -medical social consultant is working to determine the best medical terminologist living situation for the patient Supervisory-Addendum Brief Verification & Attestation Participated in pt care: history, MDM, physical Personally performed: exam, history, MDM Care discussed with: Medical Student Procedures: n/a Verification and Attestation of Medical Student E/M Service A medical student performed and documented this service. I then reviewed and verified all information documented by the medical student and made modifications to such information, when appropriate. I personally performed a physical exam, medical decision making and then discussed any differences between the notes and made revisions as necessary to create one note. Slim Cuevas , 11/03/20 , 14:55 TREVER LANDAVERDE MED STUDENT Nov 03, 2020 07:00 SLIM CUEVAS DO Nov 03, 2020 14:55
[2020-11-03 07:30] VITALS: BP 165/94
[2020-11-03] MEDS: meTOprolol TARTRATE 25 MG (LOPRESSOR) TABLET PO SCH ×2 (09:38→19:55)
[2020-11-03] MEDS: lisINopril 20 MG (PRINIVIL) TABLET PO SCH (09:38)
[2020-11-03] MEDS: AMOXICILLIN 500 MG (POLYMOX) CAP PO SCH ×3 (09:38→19:55)
--- NOTE | 2020-11-03 10:08 | Occupational Ther Daily Note ---
OT Current Status-Daily Note Subjective Pt alert, sitting in recliner. Took over pt from PT. Pt agrees to therapy. No c/o pain at this time. Mental Status/Objective Patient Orientation: Person, Place, Time, Situation Attachments: Drains (wound vac), IV ADL-Treatment Therapy Code Descriptions/Definitions Functional [place] Measure: 0=Not Assessed/NA 4=Minimal Assistance 1=Total Assistance 5=Supervision or Setup 2=Maximal Assistance 6=Modified [place] 3=Moderate Assistance 7=Complete IndependenceSCALE: Activities may be completed with or without assistive devices. 1-Latmmtkzjp-bfsaomm completes the activity by him/herself with no assistance from a helper. 5-Set-up or Clean-up Assistance-helper sets up or cleans up; patient completes activity. [place] assists only prior to or following the activity. 4-Supervision or Touching Assistance-helper provides verbal cues and/or touching/steadying and/or contact guard assistance as patient completes activity. Assistance may be provided throughout the activity or intermittently. 3-Partial/Moderate Assistance-helper does LESS THAN HALF the effort. [place] lifts, holds or supports trunk or limbs, but provides less than half the effort. 2-Substantial/Maximal Assistance-helper does MORE THAN HALF the effort. [place] lifts or holds trunk or limbs and provides more than half the effort. 8-Zngkrljcm-eoqadj does ALL the effort. Patient does none of the effort to complete the activity. Or, the assistance of 2 or more helpers is required for the patient to complete the activity. If activity was not attempted, code reason: 7-Patient Refused. 9-Not Applicable-not attempted and the patient did not perform the activity before the current illness, exacerbation or injury. 10-Not Attempted due to Environmental Limitations-(lack of equipment, weather restraints, etc.). 88-Not Attempted due to Medical Conditions or Safety Concerns. Other Treatment Skilled instructions given for medium resistance theraband to increase strength and activity tolerance for daily functional tasks. B horizontal shldr abd/add, bicep flexion, tricep extension and B shldr abd/add completed 2 sets 10 reps with multiple recovery breaks due to fatigue. After session, pt sitting in recliner with call light/phone in reach. All needs met in room. Education OT Patient Education: Exercise program Teaching Recipient: Patient Teaching Methods: Demonstration Response to Teaching: Verbalize Understanding, Return Demonstration, Reinforce ment Needed OT Short Term Goals Short Term Goals Time Frame: November 08, 2020 Eatin Oral hygiene: 5 Toileting hygiene: 4 Shower/bathe self: 3 Upper body dressin Lower body dressin Putting on/taking off footwear: 3 OT Camp Dishwasher Goals Camp Dishwasher Goals Time Frame: November 15, 2020 Eating (QC): 6 Oral Hygiene (QC): 6 Toileting Hygiene (QC): 6 Shower/Bathe Self (QC): 4 Upper Body Dressing (QC): 6 Lower Body Dressing (QC): 6 On/Off Footwear (QC): 6 Additional Goals: 1-Demonstrate ADL Tasks, 2-Verbalize Understanding, 3- ImproveStrength/[place] 1=Demonstrate adherence to instructed precautions during ADL tasks. 2=Patient will verbalize/demonstrate understanding of assistive devices/modifications for ADL. 3=Patient will improve strength/tolerance for activity to enable patient to perform ADL's. OT Education/Plan Problem List/Assessment Assessment: Decreased Activ Tolerance, Decreased UE Strength, Impaired Self- Care Skills Discharge Recommendations Plan/Recommendations: Continue POC Treatment Plan/Plan of Care Patient would benefit from OT for education, treatment and training to promote independence in ADL's, mobility, safety and/or upper extremity function for ADL's. Plan of Care: ADL Retraining, Functional Mobility, UE Funct Exercise/Act Treatment Duration: November 15, 2020 Frequency: 5 times per week Estimated Hrs Per Day: .25 hour per day Agreement: Yes Rehab Potential: Good Time/GCodes Start Time: 09:45 Stop Time: 10:00 Total Time Billed (hr/min): 15 Billed Treatment Time 1 visit-EX 1 (15 min) TOM RODRIGUEZ Nov 03, 2020 10:08
--- NOTE | 2020-11-03 10:09 | Physical Therapy Daily Note ---
PT Daily Note-Current Subjective Pt states "I have no pain." Pt up in recliner and agreeable to ther ex in chair. Mental Status Patient Orientation: Person, Place wound vac Transfers SCALE: Activities may be completed with or without assistive devices. 0-Jrkhhtvuik-jhdavwn completes the activity by him/herself with no assistance from a helper. 5-Set-up or Clean-up Assistance-helper sets up or cleans up; patient completes activity. [place] assists only prior to or following the activity. 4-Supervision or Touching Assistance-helper provides verbal cues and/or touching/steadying and/or contact guard assistance as patient completes activity. Assistance may be provided throughout the activity or intermittently. 3-Partial/Moderate Assistance-helper does LESS THAN HALF the effort. [place] lifts, holds or supports trunk or limbs, but provides less than half the effort. 2-Substantial/Maximal Assistance-helper does MORE THAN HALF the effort. [place] lifts or holds trunk or limbs and provides more than half the effort. 9-Phxjannmr-nohxad does ALL the effort. Patient does none of the effort to complete the activity. Or, the assistance of 2 or more helpers is required for the patient to complete the activity. If activity was not attempted, code reason: 7-Patient Refused. 9-Not Applicable-not attempted and the patient did not perform the activity before the current illness, exacerbation or injury. 10-Not Attempted due to Environmental Limitations-(lack of equipment, weather restraints, etc.). 88-Not Attempted due to Medical Conditions or Safety Concerns. Weight Bearing Right Lower Extremity: Right Touch Toe Bearing Left Lower Extremity: Left Full Weight Bearing right heel contact with surgical shoe in place (wound vac right foot) Exercises Supine Ex: Ankle pumps, Quad Set, Glut sets, Straight leg raise, Hip abd/add Supine Reps: 20 Seated Therapy Exercises: Long arc quads, Hip abd/add Seated Reps: 20 Treatments Pt remained in recliner. Good participation with ther ex. Conversing throomar hout. Pt readjusts weight easily and as needed in chair. Pt in care of DOCKERY post therapy session. Assessment Current Status: Good Progress, Fair Progress Pt mónica ther ex well. Pt with call light and all needs met. In care of DOCKERY post session. 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 PT Retirement Goals Time Frame: November 20, 2020 Roll Left & Right (QC): 6 Sit to Lying (QC): 6 Lying-Sitting on Side/Bed(QC): 6 Sit to Stand (QC): 6 Chair/Qpf-zg-Ttxoh Xfer(QC): 6 Toilet Transfer (QC): 6 Walk 10 feet (QC): 4 Walk 50ft with 2 Turns (QC): 88 Walk 150 ft (QC): 88 1 Step (curb) (QC): 9 4 Steps (QC): 9 12 Steps (QC): 9 Picking up an Object (QC): 6 (seated position) Does the Pt use WC or Scooter?: Yes Wheel 50 feet with 2 turns (QC: 6 Type: Manual Wheel 150 feet: 6 Type: Manual PT Plan Treatment/Plan Treatment Plan: Continue Plan of Care Treatment Plan: Education, Functional Activity [place], Functional Strength, Gait, Safety, Therapeutic Exercise, Transfers Treatment Duration: November 20, 2020 Frequency: 6 times per week Estimated Hrs Per Day: .25 hour per day Patient and/or Family Agrees t: Yes Time/GCodes Time In: 930 Time Out: 945 Total Billed Treatment Time: 15 Total Billed Treatment 1, ther ex 15' WESLY MCMAHON CPTA Nov 03, 2020 10:09
[2020-11-03 11:31] VITALS: BP 138/87
--- NOTE | 2020-11-03 15:45 | Progress Note ---
Subjective Subjective/Events-last exam Afebrile, states he is feeling well, denies concerns. Wondering if he will go to rehab or go home. Objective Exam Last Set of Vital Signs Vital Signs Date Time Temp Pulse Resp B/P (MAP) Pulse Ox O2 Delivery O2 Flow Rate FiO2 11/03/20 11:31 35.9 82 18 138/87 (104) 100 Room Air 10/31/20 10:45 3 Capillary Refill : Less Than 3 SecondsLess Than 3 Seconds I&O Intake and Output 11/03/20 00:00 Intake Total 2490 ml Output Total 5025 ml Balance -2535 ml Intake Oral 2490 ml Output Urine Total 5025 ml # Bowel Movements 1 General: Alert, No Acute Distress Lungs: Clear to Auscultation, Normal Air Movement Heart: Regular Rate, No Murmurs Extremities: Other (wound vac in place to amputation site) Neuro: Normal Speech Psych/Mental Status: Mood NL Results/Procedures Lab Laboratory Tests 11/02/20 16:14: Glucometer 213H 11/02/20 20:50: Glucometer 194H 11/03/20 05:17: Glucometer 154H 11/03/20 11:35: Glucometer 217H Microbiology 10/29/20 MRSA Screen - Final, Complete MRSA not isolated 10/29/20 Urine Culture - Final, Complete YEAST Klebsiella oxytoca See Comments 10/29/20 Blood Culture - Preliminary, Resulted No growth 10/29/20 Gram Stain - Final, Complete 10/29/20 Wound Culture - Final, Complete Gram Pos Mixed Bacterial Nancy Streptococcus pyogenes Grp A See Comments Radiology Date of Exam:10/29/20 FOOT, RIGHT, 3 VIEW EXAMINATION: Right foot radiographs, 3 views. COMPARISON: None. HISTORY: 50-year-old male, osteomyelitis of the great toe. FINDINGS: There is soft tissue swelling at the level of the first digit proximal and distal phalanges. There is bone remodeling of the first distal phalanx which appears likely long-standing. There is a nondisplaced fracture involving the lateral aspect of the base of the first distal phalanx. There is bone destruction involving the distal aspect of the first proximal phalanx with pathologic fracture. There is abnormal increased attenuation in the adjacent soft tissues medially. There is degenerative type calcaneal enthesopathy. There is mild tibiotalar osteoarthritis. IMPRESSION: 1. Osteomyelitis involving at least the distal aspect of the first proximal phalanx with pathologic fracture. 2. Most likely chronic appearing remodeling of the first distal phalanx. Nondisplaced fracture of the lateral aspect of the base of the first distal phalanx. Dictated by: Dictated on workstation # [id number] Dict: 10/29/20 1602 Trans: 10/29/20 1701 [facility] [id number] Interpreted by: AZAEL SMITH MD Electronically signed by: AZAEL SMITH MD 10/29/20 170 Assessment/Plan Assessment/Plan (1) Diabetic ketoacidosis Status: Resolved Assessment & Plan: Ketoacidosis resolved, continue insulin and diabetic diet (2) Osteomyelitis of toe of right foot Status: Acute Assessment & Plan: s/p amputation, d/c antibiotics when okay with surgery. 11/02 changed to oral amoxicillin, wound vac continued. (3) Urinary tract infection Status: Acute Assessment & Plan: Yeast (unclear if infection), small amount of klebsiella oxytoca, >100,000 alloscardovia omnicolens not clearly pathogenic. On abx currently for osteo. 11/02 klebsiella resistant only to amp, has completed 5 days of zosyn. (4) Diabetes mellitus, type 2 Status: Chronic Assessment & Plan: 11/03 Increase levemir to 20 units am and continue 30 units pm Qualifiers: Qualified Codes: E11.621 - Type 2 diabetes mellitus with foot ulcer; L97.509 - Non-pressure chronic ulcer of other part of unspecified foot with unspecified severity (5) Hypertension Status: Chronic Assessment & Plan: Was to be on losartan outpatient, has not been taking medications. Start lisinopril. Qualifiers: Qualified Codes: I10 - Essential (primary) hypertension (6) DVT prophylaxis Status: Acute Assessment & Plan: Enoxaparin on hold due to surgery, resume when okay with surgery MIKEY NIETO MD Nov 03, 2020 15:45
[2020-11-03 16:06] VITALS: BP 160/82
[2020-11-03 19:30] VITALS: BP 148/73
[2020-11-04 00:59] VITALS: BP 152/83
[2020-11-04 05:51] LABS: BASOPHILS # (AUTO) 0.1 10^3/uL (0.0-0.1); BASOPHILS % (AUTO) 1 % (0-10); EOSINOPHILS # (AUTO) 0.3 10^3/uL (0.0-0.3); EOSINOPHILS % (AUTO) 3 % (0-10); HEMATOCRIT 34 % (40-54); HEMOGLOBIN 10.8 g/dL (13.3-17.7); LYMPHOCYTES # (AUTO) 2.8 10^3/uL (1.0-4.0); LYMPHOCYTES % (AUTO) 28 % (12-44); MEAN CORPUSCULAR HEMOGLOBIN 27 pg (25-34); MEAN CORPUSCULAR HGB CONC 32 g/dL (32-36); MEAN CORPUSCULAR VOLUME 86 fL (80-99); MEAN PLATELET VOLUME 9.2 fL (9.0-12.2); MONOCYTES # (AUTO) 0.7 10^3/uL (0.0-1.0); MONOCYTES % (AUTO) 7 % (0-12); NEUTROPHILS # (AUTO) 5.8 10^3/uL (1.8-7.8); NEUTROPHILS % (AUTO) 60 % (42-75); PLATELET COUNT 433 10^3/uL (130-400); WHITE BLOOD COUNT 9.7 10^3/uL (4.3-11.0)
[2020-11-04 06:09] LABS: BUN/CREATININE RATIO 17; CALCIUM 8.8 MG/DL (8.5-10.1); CARBON DIOXIDE 26 MMOL/L (21-32); CHLORIDE 102 MMOL/L (98-107); CREATININE SERUM 0.92 MG/DL (0.60-1.30); GFR ESTIMATED > 60; GLUCOSE 75 MG/DL (70-105); POTASSIUM 4.1 MMOL/L (3.6-5.0); SODIUM 136 MMOL/L (135-145)
[2020-11-04] MEDS: inSUlin ASPART (NovoLOG) 1 UNIT/0.01 ML (CHARGE PER UNIT) SC SCH ×4 (06:19→21:16)
[2020-11-04] MEDS: meTOprolol TARTRATE 25 MG (LOPRESSOR) TABLET PO SCH ×2 (08:30→21:15)
[2020-11-04] MEDS: AMOXICILLIN 500 MG (POLYMOX) CAP PO SCH ×3 (08:30→21:15)
[2020-11-04] MEDS: lisINopril 20 MG (PRINIVIL) TABLET PO SCH (08:30)
--- NOTE | 2020-11-04 11:24 | Physical Therapy Daily Note ---
PT Daily Note-Current Subjective Patient agrees to PT. Denies pain. Mental Status Patient Orientation: Person, Time, Situation wound vac right foot Transfers SCALE: Activities may be completed with or without assistive devices. 5-Vordenfjkl-ouxkipz completes the activity by him/herself with no assistance from a helper. 5-Set-up or Clean-up Assistance-helper sets up or cleans up; patient completes activity. [place] assists only prior to or following the activity. 4-Supervision or Touching Assistance-helper provides verbal cues and/or touching/steadying and/or contact guard assistance as patient completes activity. Assistance may be provided throughout the activity or intermittently. 3-Partial/Moderate Assistance-helper does LESS THAN HALF the effort. [place] lifts, holds or supports trunk or limbs, but provides less than half the effort. 2-Substantial/Maximal Assistance-helper does MORE THAN HALF the effort. [place] lifts or holds trunk or limbs and provides more than half the effort. 2-Vjkfexuxv-shzkgy does ALL the effort. Patient does none of the effort to complete the activity. Or, the assistance of 2 or more helpers is required for the patient to complete the activity. If activity was not attempted, code reason: 7-Patient Refused. 9-Not Applicable-not attempted and the patient did not perform the activity before the current illness, exacerbation or injury. 10-Not Attempted due to Environmental Limitations-(lack of equipment, weather restraints, etc.). 88-Not Attempted due to Medical Conditions or Safety Concerns. Sit to Stand (QC): 4 (CGA for safety) Weight Bearing Right Lower Extremity: Right Touch Toe Bearing Left Lower Extremity: Left Full Weight Bearing right heel contact with surgical shoe in place (wound vac right foot) Gait Training Distance: 10' x 2 Walk 10 feet (QC): 4 Gait Assistive Device: FWW Patient unable to maintain TTWB (10% of weight) through right LE due to left foot transmetatarsal amputation. Patient is adamant about ambulating. Exercises Seated Therapy Exercises: Long arc quads, Hip flexion Seated Reps: 15 Assessment Education with patient on weight bearing status right foot, however, patient is adamant to ambulate. PT suggested w/c for home use for mobility to not compromise healing of right foot. Patient said he would think about it. SW notified of PT concerns and request. PT Brass Finisher Goals Brass Finisher Goals PT Brass Finisher Goals Time Frame: November 20, 2020 Roll Left & Right (QC): 6 Sit to Lying (QC): 6 Lying-Sitting on Side/Bed(QC): 6 Sit to Stand (QC): 6 Chair/Vpn-zu-Hfznn Xfer(QC): 6 Toilet Transfer (QC): 6 Walk 10 feet (QC): 4 Walk 50ft with 2 Turns (QC): 88 Walk 150 ft (QC): 88 1 Step (curb) (QC): 9 4 Steps (QC): 9 12 Steps (QC): 9 Picking up an Object (QC): 6 (seated position) Does the Pt use WC or Scooter?: Yes Wheel 50 feet with 2 turns (QC: 6 Type: Manual Wheel 150 feet: 6 Type: Manual PT Plan Treatment/Plan Treatment Plan: Continue Plan of Care Treatment Plan: Education, Functional Activity [place], Functional Strength, Gait, Safety, Therapeutic Exercise, Transfers Treatment Duration: November 20, 2020 Frequency: 6 times per week Estimated Hrs Per Day: .25 hour per day Patient and/or Family Agrees t: Yes Time/GCodes Time In: 1100 Time Out: 1117 Total Billed Treatment Time: 17 Total Billed Treatment 1 visit FA 17 min FRANKILN NAVARRO PT Nov 04, 2020 11:24
--- NOTE | 2020-11-04 13:12 | Occupational Ther Daily Note ---
OT Current Status-Daily Note Subjective No pain reported. Appearance Pt. up in chair. Pt. has just returned from showering with nursing. Mental Status/Objective Patient Orientation: Person, Place, Time, Situation ADL-Treatment Therapy Code Descriptions/Definitions Functional [place] Measure: 0=Not Assessed/NA 4=Minimal Assistance 1=Total Assistance 5=Supervision or Setup 2=Maximal Assistance 6=Modified [place] 3=Moderate Assistance 7=Complete IndependenceSCALE: Activities may be completed with or without assistive devices. 0-Lsqndglfwd-evhpdzu completes the activity by him/herself with no assistance from a helper. 5-Set-up or Clean-up Assistance-helper sets up or cleans up; patient completes activity. [place] assists only prior to or following the activity. 4-Supervision or Touching Assistance-helper provides verbal cues and/or touching/steadying and/or contact guard assistance as patient completes activity. Assistance may be provided throughout the activity or intermittently. 3-Partial/Moderate Assistance-helper does LESS THAN HALF the effort. [place] lifts, holds or supports trunk or limbs, but provides less than half the effort. 2-Substantial/Maximal Assistance-helper does MORE THAN HALF the effort. [place] lifts or holds trunk or limbs and provides more than half the effort. 5-Diybxrdpc-mnocuu does ALL the effort. Patient does none of the effort to complete the activity. Or, the assistance of 2 or more helpers is required for the patient to complete the activity. If activity was not attempted, code reason: 7-Patient Refused. 9-Not Applicable-not attempted and the patient did not perform the activity before the current illness, exacerbation or injury. 10-Not Attempted due to Environmental Limitations-(lack of equipment, weather restraints, etc.). 88-Not Attempted due to Medical Conditions or Safety Concerns. Other Treatment Pt. up in chair. Has returned from showering. Nursing reports that once pt. was on shower chair, he was able to wash self. Pt. completed bilateral UE exercises with OT, with red theraband, x 4 exercises, x 15 reps each in all planes. Completed this to work on increased strength and overall independence with daily skills. All needs met up in chair. Education OT Patient Education: Correct positioning, Exercise program, Progress toward Goal/Update tx plan, Purpose of tx/functional activities, Reviewed precautions, Rehab process Teaching Recipient: Patient Teaching Methods: Demonstration, Discussion Response to Teaching: Verbalize Understanding, Return Demonstration OT Short Term Goals Short Term Goals Time Frame: November 08, 2020 Eatin Oral hygiene: 5 Toileting hygiene: 4 Shower/bathe self: 3 Upper body dressin Lower body dressin Putting on/taking off footwear: 3 OT Shank Turner Goals [facility] Goals Time Frame: November 15, 2020 Eating (QC): 6 Oral Hygiene (QC): 6 Toileting Hygiene (QC): 6 Shower/Bathe Self (QC): 4 Upper Body Dressing (QC): 6 Lower Body Dressing (QC): 6 On/Off Footwear (QC): 6 Additional Goals: 1-Demonstrate ADL Tasks, 2-Verbalize Understanding, 3- ImproveStrength/[place] 1=Demonstrate adherence to instructed precautions during ADL tasks. 2=Patient will verbalize/demonstrate understanding of assistive devices/modifications for ADL. 3=Patient will improve strength/tolerance for activity to enable patient to perform ADL's. OT Education/Plan Problem List/Assessment Assessment: Decreased Activ Tolerance Discharge Recommendations Plan/Recommendations: Continue POC Treatment Plan/Plan of Care Treatment,Training & Education: Yes Patient would benefit from OT for education, treatment and training to promote independence in ADL's, mobility, safety and/or upper extremity function for ADL's. Plan of Care: ADL Retraining, Functional Mobility, UE Funct Exercise/Act Treatment Duration: November 15, 2020 Frequency: 5 times per week Estimated Hrs Per Day: .25 hour per day Agreement: Yes Rehab Potential: Good Time/GCodes Start Time: 08:50 Stop Time: 09:00 Total Time Billed (hr/min): 10 Billed Treatment Time 1, Ex SERGO SANTA OT Nov 04, 2020 13:12
--- NOTE | 2020-11-04 15:13 | Progress Note ---
Subjective Subjective/Events-last exam Afebrile, denies concerns. Had wound vac change today and reports it went fine. Objective Exam Last Set of Vital Signs Vital Signs Date Time Temp Pulse Resp B/P (MAP) Pulse Ox O2 Delivery O2 Flow Rate FiO2 11/04/20 08:00 Room Air 11/04/20 00:59 36.3 75 18 152/83 (106) 96 10/31/20 10:45 3 Capillary Refill : Less Than 3 SecondsLess Than 3 Seconds I&O Intake and Output 11/04/20 00:00 Intake Total 3425 ml Output Total 2675 ml Balance 750 ml Intake Oral 2530 ml IV Total 895 ml Output Urine Total 2675 ml # Voids 2 # Bowel Movements 2 General: Alert, No Acute Distress Lungs: Clear to Auscultation, Normal Air Movement Heart: Regular Rate, No Murmurs Extremities: Other (wound vac in place to right great toe amputation site) Neuro: Normal Speech Psych/Mental Status: Mood NL Results/Procedures Lab Laboratory Tests 11/03/20 15:49: Glucometer 219H 11/03/20 20:02: Glucometer 194H 11/04/20 05:16: White Blood Count 9.7, Red Blood Count 3.99L, Hemoglobin 10.8L, Hematocrit 34L, Mean Corpuscular Volume 86, Mean Corpuscular Hemoglobin 27, Mean Corpuscular Hemoglobin Concent 32, Red Cell Distribution Width 12.8, Platelet Count 433H, Mean Platelet Volume 9.2, Immature Granulocyte % (Auto) 1, Neutrophils (%) (Auto) 60, Lymphocytes (%) (Auto) 28, Monocytes (%) (Auto) 7, Eosinophils (%) (Auto) 3, Basophils (%) (Auto) 1, Neutrophils # (Auto) 5.8, Lymphocytes # (Auto) 2.8, Monocytes # (Auto) 0.7, Eosinophils # (Auto) 0.3, Basophils # (Auto) 0.1, Immature Granulocyte # (Auto) 0.1, Sodium Level 136, Potassium Level 4.1, Chloride Level 102, Carbon Dioxide Level 26, Anion Gap 8, Blood Urea Nitrogen 16, Creatinine 0.92, Estimat Glomerular Filtration Rate > 60, BUN/Creatinine Ratio 17, Glucose Level 75, Calcium Level 8.8 11/04/20 11:23: Glucometer 191H Microbiology 10/29/20 MRSA Screen - Final, Complete MRSA not isolated 10/29/20 Urine Culture - Final, Complete YEAST Klebsiella oxytoca See Comments 10/29/20 Blood Culture - Final, Complete No growth 10/29/20 Gram Stain - Final, Complete 10/29/20 Wound Culture - Final, Complete Gram Pos Mixed Bacterial Nancy Streptococcus pyogenes Grp A See Comments Radiology Date of Exam:10/29/20 FOOT, RIGHT, 3 VIEW EXAMINATION: Right foot radiographs, 3 views. COMPARISON: None. HISTORY: 50-year-old male, osteomyelitis of the great toe. FINDINGS: There is soft tissue swelling at the level of the first digit proximal and distal phalanges. There is bone remodeling of the first distal phalanx which appears likely long-standing. There is a nondisplaced fracture involving the lateral aspect of the base of the first distal phalanx. There is bone destruction involving the distal aspect of the first proximal phalanx with pathologic fracture. There is abnormal increased attenuation in the adjacent soft tissues medially. There is degenerative type calcaneal enthesopathy. There is mild tibiotalar osteoarthritis. IMPRESSION: 1. Osteomyelitis involving at least the distal aspect of the first proximal phalanx with pathologic fracture. 2. Most likely chronic appearing remodeling of the first distal phalanx. Nondisplaced fracture of the lateral aspect of the base of the first distal phalanx. Dictated by: Dictated on workstation # [id number] Dict: 10/29/20 1602 Trans: 10/29/201700 E [id number] Interpreted by: AZAEL SMITH MD Electronically signed by: AZAEL SMITH MD 10/29/205 Assessment/Plan Assessment/Plan (1) Diabetic ketoacidosis Status: Resolved Assessment & Plan: Ketoacidosis resolved, continue insulin and diabetic diet (2) Osteomyelitis of toe of right foot Status: Acute Assessment & Plan: s/p amputation, d/c antibiotics when okay with surgery. 11/02 changed to oral amoxicillin, wound vac continued. 11/04 continuing wound vac, changed today (3) Urinary tract infection Status: Acute Assessment & Plan: Yeast (unclear if infection), small amount of klebsiella oxytoca, >100,000 alloscardovia omnicolens not clearly pathogenic. On abx currently for osteo. 11/02 klebsiella resistant only to amp, has completed 5 days of zosyn. (4) Diabetes mellitus, type 2 Status: Chronic Assessment & Plan: 11/03 Increase levemir to 20 units am and continue 30 units pm 11/04 increase levemir to 25 units am and continue 30 units pm Qualifiers: Qualified Codes: E11.621 - Type 2 diabetes mellitus with foot ulcer; L97.509 - Non-pressure chronic ulcer of other part of unspecified foot with unspecified severity (5) Hypertension Status: Chronic Assessment & Plan: Was to be on losartan outpatient, has not been taking medications. Start lisinopril. Qualifiers: Qualified Codes: I10 - Essential (primary) hypertension (6) DVT prophylaxis Status: Acute Assessment & Plan: Enoxaparin on hold due to surgery, resume when okay with surgery MIKEY NIETO MD Nov 04, 2020 15:13
[2020-11-04 16:08] VITALS: BP 145/77
[2020-11-04 23:52] VITALS: BP 120/72
[2020-11-05] MEDS: inSUlin ASPART (NovoLOG) 1 UNIT/0.01 ML (CHARGE PER UNIT) SC SCH ×4 (05:45→20:58)
[2020-11-05 07:09] VITALS: BP 129/81
[2020-11-05] MEDS: lisINopril 20 MG (PRINIVIL) TABLET PO SCH (08:43)
[2020-11-05] MEDS: AMOXICILLIN 500 MG (POLYMOX) CAP PO SCH ×3 (08:43→20:57)
[2020-11-05] MEDS: meTOprolol TARTRATE 25 MG (LOPRESSOR) TABLET PO SCH ×2 (08:43→20:57)
--- NOTE | 2020-11-05 10:52 | Physical Therapy Daily Note ---
PT Daily Note-Current Subjective Patient agrees to PT. Dons left shoe and right surgical shoe independently. Prior to this patient did show this PT left foot wound. RN notified. Mental Status Patient Orientation: Person, Time, Situation wound vac right foot Transfers SCALE: Activities may be completed with or without assistive devices. 1-Ohdlmynuih-tczmkpg completes the activity by him/herself with no assistance from a helper. 5-Set-up or Clean-up Assistance-helper sets up or cleans up; patient completes activity. [place] assists only prior to or following the activity. 4-Supervision or Touching Assistance-helper provides verbal cues and/or touching/steadying and/or contact guard assistance as patient completes activity. Assistance may be provided throughout the activity or intermittently. 3-Partial/Moderate Assistance-helper does LESS THAN HALF the effort. [place] lifts, holds or supports trunk or limbs, but provides less than half the effort. 2-Substantial/Maximal Assistance-helper does MORE THAN HALF the effort. [place] lifts or holds trunk or limbs and provides more than half the effort. 4-Zufcfjjqr-ybxwie does ALL the effort. Patient does none of the effort to complete the activity. Or, the assistance of 2 or more helpers is required for the patient to complete the activity. If activity was not attempted, code reason: 7-Patient Refused. 9-Not Applicable-not attempted and the patient did not perform the activity before the current illness, exacerbation or injury. 10-Not Attempted due to Environmental Limitations-(lack of equipment, weather restraints, etc.). 88-Not Attempted due to Medical Conditions or Safety Concerns. Sit to Stand (QC): 4 Weight Bearing Right Lower Extremity: Right Touch Toe Bearing Left Lower Extremity: Left Full Weight Bearing right heel contact with surgical shoe in place (wound vac right foot) Gait Training Distance: 10' x 2 Walk 10 feet (QC): 3 Gait Assistive Device: FWW difficulty with maintaining TTWB right foot. Exercises Seated Therapy Exercises: Long arc quads Seated Reps: 15 Assessment PT recommends w/c due to bilateral foot wounds and inability to maintain weight bearing status. Patient educated on importance of minimal weight bearing of bilateral LE due to wounds. Patient remains up in recliner RN notified of left would on area of transmetatarsal amputation. PT Police Booking Officer Goals Chcf Goals PT Police Booking Officer Goals Time Frame: November 20, 2020 Roll Left & Right (QC): 6 Sit to Lying (QC): 6 Lying-Sitting on Side/Bed(QC): 6 Sit to Stand (QC): 6 Chair/Jix-gk-Qhodm Xfer(QC): 6 Toilet Transfer (QC): 6 Walk 10 feet (QC): 4 Walk 50ft with 2 Turns (QC): 88 Walk 150 ft (QC): 88 1 Step (curb) (QC): 9 4 Steps (QC): 9 12 Steps (QC): 9 Picking up an Object (QC): 6 (seated position) Does the Pt use WC or Scooter?: Yes Wheel 50 feet with 2 turns (QC: 6 Type: Manual Wheel 150 feet: 6 Type: Manual PT Plan Treatment/Plan Treatment Plan: Continue Plan of Care Treatment Plan: Education, Functional Activity [place], Functional Strength, Gait, Safety, Therapeutic Exercise, Transfers Treatment Duration: November 20, 2020 Frequency: 6 times per week Estimated Hrs Per Day: .25 hour per day Patient and/or Family Agrees t: Yes Time/GCodes Time In: 1021 Time Out: 1038 Total Billed Treatment Time: 17 Total Billed Treatment 1 visit FA 17 min FRANKLIN NAVARRO PT Nov 05, 2020 10:52
[2020-11-05 11:15] VITALS: BP 117/70
--- NOTE | 2020-11-05 12:52 | Progress Note ---
Subjective Subjective/Events-last exam Patient denies complaints. Remains afebrile. Objective Exam Last Set of Vital Signs Vital Signs Date Time Temp Pulse Resp B/P (MAP) Pulse Ox O2 Delivery O2 Flow Rate FiO2 11/05/20 11:15 36.0 79 18 117/70 (86) 100 Room Air 10/31/20 10:45 3 Capillary Refill : Less Than 3 SecondsLess Than 3 Seconds I&O Intake and Output 11/05/20 00:00 Intake Total 2780 ml Output Total 2225 ml Balance 555 ml Intake Oral 2780 ml Output Urine Total 2225 ml # Voids 1 # Bowel Movements 1 General: Alert, No Acute Distress Lungs: Clear to Auscultation, Normal Air Movement Heart: Regular Rate, No Murmurs Skin: Other (wound vac in place to great toe amputation site) Results/Procedures Lab Laboratory Tests 11/04/20 15:37: Glucometer 237H 11/04/20 20:26: Glucometer 260H 11/05/20 05:34: Glucometer 81 11/05/20 11:18: Glucometer 231H Microbiology 10/29/20 MRSA Screen - Final, Complete MRSA not isolated 10/29/20 Urine Culture - Final, Complete YEAST Klebsiella oxytoca See Comments 10/29/20 Blood Culture - Final, Complete No growth 10/29/20 Gram Stain - Final, Complete 10/29/20 Wound Culture - Final, Complete Gram Pos Mixed Bacterial Nancy Streptococcus pyogenes Grp A See Comments Radiology Date of Exam:10/29/20 FOOT, RIGHT, 3 VIEW EXAMINATION: Right foot radiographs, 3 views. COMPARISON: None. HISTORY: 50-year-old male, osteomyelitis of the great toe. FINDINGS: There is soft tissue swelling at the level of the first digit proximal and distal phalanges. There is bone remodeling of the first distal phalanx which appears likely long-standing. There is a nondisplaced fracture involving the lateral aspect of the base of the first distal phalanx. There is bone destruction involving the distal aspect of the first proximal phalanx with pathologic fracture. There is abnormal increased attenuation in the adjacent soft tissues medially. There is degenerative type calcaneal enthesopathy. There is mild tibiotalar osteoarthritis. IMPRESSION: 1. Osteomyelitis involving at least the distal aspect of the first proximal phalanx with pathologic fracture. 2. Most likely chronic appearing remodeling of the first distal phalanx. Nondisplaced fracture of the lateral aspect of the base of the first distal phalanx. Dictated by: Dictated on workstation # [id number] Dict: 10/29/20 1602 Trans: 10/29/201700 [facility] [id number] Interpreted by: AZAEL SMITH MD Electronically signed by: AZAEL SMITH MD 10/29/201700 Assessment/Plan Assessment/Plan (1) Diabetic ketoacidosis Status: Resolved Assessment & Plan: Ketoacidosis resolved, continue insulin and diabetic diet (2) Osteomyelitis of toe of right foot Status: Acute Assessment & Plan: s/p amputation, d/c antibiotics when okay with surgery. 11/02 changed to oral amoxicillin, wound vac continued. 11/04 continuing wound vac, changed today (3) Urinary tract infection Status: Acute Assessment & Plan: Yeast (unclear if infection), small amount of klebsiella oxytoca, >100,000 alloscardovia omnicolens not clearly pathogenic. On abx currently for osteo. 11/02 klebsiella resistant only to amp, has completed 5 days of zosyn. (4) Diabetes mellitus, type 2 Status: Chronic Assessment & Plan: 11/03 Increase levemir to 20 units am and continue 30 units pm 11/04 increase levemir to 25 units am and continue 30 units pm Qualifiers: Qualified Codes: E11.621 - Type 2 diabetes mellitus with foot ulcer; L97.509 - Non-pressure chronic ulcer of other part of unspecified foot with unspecified severity (5) Hypertension Status: Chronic Assessment & Plan: Was to be on losartan outpatient, has not been taking medications. Start lisinopril. Qualifiers: Qualified Codes: I10 - Essential (primary) hypertension (6) DVT prophylaxis Status: Acute Assessment & Plan: Enoxaparin on hold due to surgery and wound vac MIKEY NIETO MD Nov 05, 2020 12:52
--- NOTE | 2020-11-05 14:24 | Occupational Ther Daily Note ---
OT Current Status-Daily Note Subjective Pt seated in recliner, agreeable to OT Tx. Mental Status/Objective Patient Orientation: Person, Place, Situation ADL-Treatment Therapy Code Descriptions/Definitions Functional [place] Measure: 0=Not Assessed/NA 4=Minimal Assistance 1=Total Assistance 5=Supervision or Setup 2=Maximal Assistance 6=Modified [place] 3=Moderate Assistance 7=Complete IndependenceSCALE: Activities may be completed with or without assistive devices. 2-Buwryxfcls-pawjilf completes the activity by him/herself with no assistance from a helper. 5-Set-up or Clean-up Assistance-helper sets up or cleans up; patient completes activity. [place] assists only prior to or following the activity. 4-Supervision or Touching Assistance-helper provides verbal cues and/or touching/steadying and/or contact guard assistance as patient completes activity. Assistance may be provided throughout the activity or intermittently. 3-Partial/Moderate Assistance-helper does LESS THAN HALF the effort. [place] lifts, holds or supports trunk or limbs, but provides less than half the effort. 2-Substantial/Maximal Assistance-helper does MORE THAN HALF the effort. [place] lifts or holds trunk or limbs and provides more than half the effort. 9-Qqeltpyww-zqehqx does ALL the effort. Patient does none of the effort to complete the activity. Or, the assistance of 2 or more helpers is required for the patient to complete the activity. If activity was not attempted, code reason: 7-Patient Refused. 9-Not Applicable-not attempted and the patient did not perform the activity before the current illness, exacerbation or injury. 10-Not Attempted due to Environmental Limitations-(lack of equipment, weather restraints, etc.). 88-Not Attempted due to Medical Conditions or Safety Concerns. Other Treatment Pt seated in recliner, agreeable to OT Tx. In order to increase BUE strength and functional endurance, pt completed x20 reps BUE exercises using moderate resistance theraband, recalled 3/4 exercises from previous session, min verbal cues for technique. Post tx, pt seated in recliner, call light tin reach and all needs met. Education OT Patient Education: Correct positioning, Exercise program, Home exercise program, Modified ADL techniques, Progress toward Goal/Update tx plan, Purpose of tx/functional activities, Rehab process Teaching Recipient: Patient Teaching Methods: Discussion Response to Teaching: Verbalize Understanding OT Short Term Goals Short Term Goals Time Frame: November 08, 2020 Eatin Oral hygiene: 5 Toileting hygiene: 4 Shower/bathe self: 3 Upper body dressin Lower body dressin Putting on/taking off footwear: 3 OT Hospital Technician Goals Hospital Technician Goals Time Frame: November 15, 2020 Eating (QC): 6 Oral Hygiene (QC): 6 Toileting Hygiene (QC): 6 Shower/Bathe Self (QC): 4 Upper Body Dressing (QC): 6 Lower Body Dressing (QC): 6 On/Off Footwear (QC): 6 Additional Goals: 1-Demonstrate ADL Tasks, 2-Verbalize Understanding, 3-ImproveStrength/[place] 1=Demonstrate adherence to instructed precautions during ADL tasks. 2=Patient will verbalize/demonstrate understanding of assistive devices/modifications for ADL. 3=Patient will improve strength/tolerance for activity to enable patient to perform ADL's. OT Education/Plan Problem List/Assessment Assessment: Decreased Activ Tolerance, Decreased UE Strength, Impaired I ADL's, Impaired Self-Care Skills, Restricted Funct UE ROM Discharge Recommendations Plan/Recommendations: Continue POC Treatment Plan/Plan of Care Patient would benefit from OT for education, treatment and training to promote independence in ADL's, mobility, safety and/or upper extremity function for ADL's. Plan of Care: ADL Retraining, Functional Mobility, UE Funct Exercise/Act Treatment Duration: November 15, 2020 Frequency: 5 times per week Estimated Hrs Per Day: .25 hour per day Agreement: Yes Rehab Potential: Good Time/GCodes Start Time: 13:15 Stop Time: 13:27 Total Time Billed (hr/min): 12 Billed Treatment Time 1, EX REGGIE GAGE OT Nov 05, 2020 14:24
[2020-11-05 15:48] VITALS: BP 119/79
[2020-11-06] VITALS: BP 126/75
[2020-11-06 05:11] LABS: HEMOGLOBIN 11.1 g/dL (13.3-17.7); MEAN PLATELET VOLUME 9.2 fL (9.0-12.2); WHITE BLOOD COUNT 10.2 10^3/uL (4.3-11.0)
[2020-11-06 05:36] LABS: BUN/CREATININE RATIO 26; CALCIUM 8.8 MG/DL (8.5-10.1); CARBON DIOXIDE 25 MMOL/L (21-32); CHLORIDE 102 MMOL/L (98-107); GFR ESTIMATED > 60; GLUCOSE 74 MG/DL (70-105); POTASSIUM 4.2 MMOL/L (3.6-5.0); SODIUM 134 MMOL/L (135-145)
[2020-11-06] MEDS: inSUlin ASPART (NovoLOG) 1 UNIT/0.01 ML (CHARGE PER UNIT) SC SCH ×7 (06:22→20:07)
[2020-11-06] MEDS: meTOprolol TARTRATE 25 MG (LOPRESSOR) TABLET PO SCH ×2 (07:57→21:05)
[2020-11-06] MEDS: AMOXICILLIN 500 MG (POLYMOX) CAP PO SCH ×3 (07:57→21:05)
[2020-11-06] MEDS: lisINopril 20 MG (PRINIVIL) TABLET PO SCH (07:57)
[2020-11-06 08:00] VITALS: BP 140/75
--- NOTE | 2020-11-06 09:27 | Physical Therapy Daily Note ---
PT Daily Note-Current Subjective Patient in recliner pre tx, has no complaints of pain. Patient just went to the shower and back with nursing, doesn't want to get out of the recliner for now, agrees to LE exercise Appearance Patient in recliner post tx with nurse call, phone, tray, all needs met. Mental Status Patient Orientation: Person, Place, Situation Transfers SCALE: Activities may be completed with or without assistive devices. 8-Fgyhvjmugq-iauipnc completes the activity by him/herself with no assistance from a helper. 5-Set-up or Clean-up Assistance-helper sets up or cleans up; patient completes activity. [place] assists only prior to or following the activity. 4-Supervision or Touching Assistance-helper provides verbal cues and/or touching/steadying and/or contact guard assistance as patient completes activity. Assistance may be provided throughout the activity or intermittently. 3-Partial/Moderate Assistance-helper does LESS THAN HALF the effort. [place] lifts, holds or supports trunk or limbs, but provides less than half the effort. 2-Substantial/Maximal Assistance-helper does MORE THAN HALF the effort. [place] lifts or holds trunk or limbs and provides more than half the effort. 2-Pcacjpdhx-qxexwe does ALL the effort. Patient does none of the effort to complete the activity. Or, the assistance of 2 or more helpers is required for the patient to complete the activity. If activity was not attempted, code reason: 7-Patient Refused. 9-Not Applicable-not attempted and the patient did not perform the activity before the current illness, exacerbation or injury. 10-Not Attempted due to Environmental Limitations-(lack of equipment, weather restraints, etc.). 88-Not Attempted due to Medical Conditions or Safety Concerns. Weight Bearing Right Lower Extremity: Right Touch Toe Bearing Left Lower Extremity: Left Full Weight Bearing right heel contact with surgical shoe in place (wound vac right foot) Exercises Supine Ex: Quad Set, Glut sets, Straight leg raise Supine Reps: 20 (done in recliner with legs elevated) Seated Therapy Exercises: Ankle pumps, Long arc quads Seated Reps: 20 Treatments LE exercise Assessment Current Status: Fair Progress patient has severe bilateral plantarflexion contractures PT Black Studies Professor Goals Snf Goals PT Black Studies Professor Goals Time Frame: November 20, 2020 Roll Left & Right (QC): 6 Sit to Lying (QC): 6 Lying-Sitting on Side/Bed(QC): 6 Sit to Stand (QC): 6 Chair/Ggv-pu-Qucge Xfer(QC): 6 Toilet Transfer (QC): 6 Walk 10 feet (QC): 4 Walk 50ft with 2 Turns (QC): 88 Walk 150 ft (QC): 88 1 Step (curb) (QC): 9 4 Steps (QC): 9 12 Steps (QC): 9 Picking up an Object (QC): 6 (seated position) Does the Pt use WC or Scooter?: Yes Wheel 50 feet with 2 turns (QC: 6 Type: Manual Wheel 150 feet: 6 Type: Manual PT Plan Problem List Problem List: Activity Tolerance, Functional Strength, Safety, Balance, Gait, Transfer, ROM Treatment/Plan Treatment Plan: Continue Plan of Care Treatment Plan: Education, Functional Activity [place], Functional Strength, Gait, Safety, Therapeutic Exercise, Transfers Treatment Duration: November 20, 2020 Frequency: 6 times per week Estimated Hrs Per Day: .25 hour per day Patient and/or Family Agrees t: Yes Safety Risks/Education Patient Education: Correct Positioning, Safety Issues Teaching Recipient: Patient Teaching Methods: Demonstration, Discussion Response to Teaching: Reinforcement Needed Time/GCodes Time In: 0845 Time Out: 0855 Total Billed Treatment Time: 10 Total Billed Treatment 1 visit EX TE PARIKH PT November 06, 2020 09:27
--- NOTE | 2020-11-06 10:38 | Progress Note - Hospitalist ---
Subjective HPI/CC On Admission Date Seen by Provider: November 06, 2020 Time Seen by Provider: 09:00 CC: DKA with right foot osteomyelitis with cellulitis HPI: This is a 50yoWM clinic patient of [facility] who stopped taking his insulin for several months who presented to the ER with 500+ sugar and a draining right great toe ulceration and cellulitis. Dr Cuevas was consulted and will plan on great toe amputation Sunday. DKA noted so insulin drip was started. Subjective/Events-last exam Patient voices no complaints no significant foot pain reported. Denies night sweats chills or fever. Objective Exam Vital Signs Vital Signs Date Time Temp Pulse Resp B/P (MAP) Pulse Ox O2 Delivery O2 Flow Rate FiO2 11/06/20 08:00 Room Air 11/06/20 08:00 36.1 81 16 140/75 (96) 99 10/31/20 10:45 3 Capillary Refill : Less Than 3 SecondsLess Than 3 Seconds General Appearance: No Apparent Distress Respiratory: Chest Non Tender, Lungs Clear, Normal Breath Sounds, No Accessory Muscle Use, No Respiratory Distress Cardiovascular: Regular Rate, Rhythm, No Edema, No Gallop, No JVD, No Murmur, Normal Peripheral Pulses Extremity: Other (Right foot bandaged minimal drainage noted no erythema above the bandaging.) Results/Procedures Lab Laboratory Tests 11/06/20 04:50 Patient resulted labs reviewed. Assessment/Plan Assessment and Plan Assess & Plan/Chief Complaint 1. Status post right great toe amputation due to osteomyelitis continue oral antibiotics and wound VAC plan discharged the beginning of the week when home care and home wound VAC can hopefully be covered for this patient. 2. Diabetes blood sugars last 24 hours predominantly in the 200 range only receiving sliding scale bolus therapy in the form of NovoLog in addition to basal therapy with Levemir. Will start scheduled AC NovoLog 10 units AC. TERE JURADO MD November 06, 2020 10:38
[2020-11-06 15:54] VITALS: BP 130/73
[2020-11-06] MEDS: HYDROcodone/APAP 5 MG/325 MG (LORTAB) TAB PO PRN (19:20)
[2020-11-07 00:03] VITALS: BP 123/76
[2020-11-07] MEDS: inSUlin ASPART (NovoLOG) 1 UNIT/0.01 ML (CHARGE PER UNIT) SC SCH ×5 (06:04→17:16)
[2020-11-07 08:00] VITALS: BP 117/74
[2020-11-07] MEDS: meTOprolol TARTRATE 25 MG (LOPRESSOR) TABLET PO SCH ×2 (08:15→20:27)
[2020-11-07] MEDS: lisINopril 20 MG (PRINIVIL) TABLET PO SCH (08:15)
--- NOTE | 2020-11-07 11:51 | Progress Note - Hospitalist ---
Subjective HPI/CC On Admission Date Seen by Provider: November 07, 2020 Time Seen by Provider: 11:00 CC: DKA with right foot osteomyelitis with cellulitis HPI: This is a 50yoWM clinic patient of [facility] who stopped taking his insulin for several months who presented to the ER with 500+ sugar and a draining right gr eat toe ulceration and cellulitis. Dr Cuevas was consulted and will plan on great toe amputation Sunday. DKA noted so insulin drip was started. Subjective/Events-last exam Patient reports feeling well voicing no complaints no foot pain reported. Objective Exam Vital Signs Vital Signs Date Time Temp Pulse Resp B/P (MAP) Pulse Ox O2 Delivery O2 Flow Rate FiO2 11/07/20 08:00 Room Air 11/07/20 08:00 36.0 78 20 117/74 (88) 99 Capillary Refill : Less Than 3 SecondsLess Than 3 Seconds General Appearance: No Apparent Distress Respiratory: Chest Non Tender, Lungs Clear, Normal Breath Sounds, No Accessory Muscle Use, No Respiratory Distress Cardiovascular: Regular Rate, Rhythm, No Edema, No Gallop, No JVD, No Murmur, Normal Peripheral Pulses Extremity: Other (No edema noted wound VAC on no surrounding erythema stable.) Results/Procedures Lab Patient resulted labs reviewed. Assessment/Plan Assessment and Plan Assess & Plan/Chief Complaint 1. Status post right great toe amputation due to osteomyelitis continue oral antibiotics and wound VAC plan discharged the beginning of the week when home care and home wound VAC can hopefully be covered for this patient. 2.Uncontrolled type 2 diabetes the underlying cause of #1. Discussed this with the patient. Patient did receive 30 units of Levemir this morning. Because his blood sugar was 135 his nurse held his insulin and a roughly 3+ hour postpr andial blood sugar around 11 was a little over 240 indicative of an individual who is going to require basal bolus insulin for any semblance of blood sugar control especially in light of the fact that his breakfast was relatively healthy/low glycemic. He does not believe he can comply with the use of insulin via pen set that he has utilized in the past.This will need to be set up for him prior to discharge. For now we will continue 10 units of Humalog AC and 30 units of Levemir in the morning and 25 units at bedtime. TERE JURADO MD November 07, 2020 11:51
[2020-11-07 15:19] VITALS: BP 125/67
[2020-11-08] VITALS: BP 122/75
[2020-11-08] MEDS: HYDROcodone/APAP 5 MG/325 MG (LORTAB) TAB PO PRN (00:20)
[2020-11-08 06:06] LABS: BASOPHILS # (AUTO) 0.1 10^3/uL (0.0-0.1); BASOPHILS % (AUTO) 1 % (0-10); EOSINOPHILS # (AUTO) 0.3 10^3/uL (0.0-0.3); EOSINOPHILS % (AUTO) 3 % (0-10); HEMATOCRIT 33 % (40-54); HEMOGLOBIN 10.5 g/dL (13.3-17.7); LYMPHOCYTES # (AUTO) 2.9 10^3/uL (1.0-4.0); LYMPHOCYTES % (AUTO) 31 % (12-44); MEAN CORPUSCULAR HEMOGLOBIN 27 pg (25-34); MEAN CORPUSCULAR HGB CONC 31 g/dL (32-36); MEAN CORPUSCULAR VOLUME 86 fL (80-99); MEAN PLATELET VOLUME 9.2 fL (9.0-12.2); MONOCYTES # (AUTO) 0.6 10^3/uL (0.0-1.0); MONOCYTES % (AUTO) 6 % (0-12); NEUTROPHILS # (AUTO) 5.6 10^3/uL (1.8-7.8); NEUTROPHILS % (AUTO) 58 % (42-75); PLATELET COUNT 456 10^3/uL (130-400); WHITE BLOOD COUNT 9.6 10^3/uL (4.3-11.0)
[2020-11-08 06:28] LABS: ALANINE AMINOTRANSFERASE 25 U/L (0-55); ALKALINE PHOSPHATASE 71 U/L (40-136); BILIRUBIN,TOTAL 0.2 MG/DL (0.1-1.0); BUN/CREATININE RATIO 27; CALCIUM 8.7 MG/DL (8.5-10.1); CARBON DIOXIDE 23 MMOL/L (21-32); CHLORIDE 102 MMOL/L (98-107); CREATININE SERUM 1.24 MG/DL (0.60-1.30); GFR ESTIMATED > 60; GLUCOSE 98 MG/DL (70-105); POTASSIUM 4.8 MMOL/L (3.6-5.0); SODIUM 133 MMOL/L (135-145); TOTAL PROTEIN 7.7 GM/DL (6.4-8.2)
[2020-11-08 07:15] VITALS: BP 120/76
[2020-11-08] MEDS: meTOprolol TARTRATE 25 MG (LOPRESSOR) TABLET PO SCH (08:40)
[2020-11-08] MEDS: inSUlin ASPART (NovoLOG) 1 UNIT/0.01 ML (CHARGE PER UNIT) SC SCH ×3 (08:40→16:54)
[2020-11-08] MEDS: lisINopril 20 MG (PRINIVIL) TABLET PO SCH (08:40)
[2020-11-08] MEDS ORDERED: METO-333 PO (10:13)
[2020-11-08] MEDS ORDERED: ACHD5005 PO (10:13)
[2020-11-08] MEDS ORDERED: ATOR40TA PO (10:13)
[2020-11-08] MEDS ORDERED: LISI20TA26 PO (10:13)
[2020-11-08] MEDS ORDERED: INSU100I14 SQ (10:13)
[2020-11-08] MEDS ORDERED: [UNRECOGNIZED DRUG - CODE] MC (10:13)
[2020-11-08] MEDS ORDERED: INSU100I29 SQ (10:13)
[2020-11-08] MEDS ORDERED: NEED-474 MC (10:13)
--- NOTE | 2020-11-08 10:15 | D/C HH Face to Face Order ---
D/C Face to Face Orders Reconcile Patient Problems Problems Reviewed?: Yes Instructions for Patient Via Sandi Poynt, Patient Instructions/FollowUp: Wound care wound vac per Dr Cuevas [facility] appt in 1 week Physician to follow Patient: [facility] Discharge Diet for Home: ADA Diet Patient Problems: Right toe amputation great toe Patient Data-Allergies,Ht & Wt Patient Allergies: Coded Allergies: No Known Drug Allergies (Unverified , 10/29/20) Home Health Need/Face to Face Date of Face to Face: November 08, 2020 Clinical Findings: Generalized weakness and fatigue, Instability, Muscle weakness, Non or partial weight bearing, Pain with ambulation, Unsteady gait I have seen Pt [id number]: Yes Discharged To: Home Diagnosis/Conditions: right great toe amputation Patient is Homebound due to: Non-weight bearing Homebound Status Due to the above stated illness, injury or surgical procedure (medical condition or diagnosis) and associated clinical findings, the patient is homebound because of his/her inability to leave home except with aid of a supportive device and/or person AND leaving the home requires a considerable and taxing effort or is medically contraindicated. Pt req the following assistanc: Wheelchair Home Health Nursing Orders Home Health Services Order: Nursing Services, Doctor Of Chiropractic-Evaluate & Treat, Physical Therapy-Evaluate & Treat, Wound Care-Eval/Treat Home Health Infusion Therapy Line Start Date: Oct 29, 2020 Certify Stmt I certify that this patient is under my care and that I, a nurse practitioner or a physician; a inventory assistant working with me, had a face to face encounter that - meets the physician face to face encounter requirements with this patient as dated. CHANTELL HAHN DO November 08, 2020 10:15
--- NOTE | 2020-11-08 10:15 | Discharge Summary ---
Discharge Summary Hospital Course Was the Problem List Reviewed?: Yes Problems/Dx: (1) Amputated toe of right foot (2) Hyperglycemia (3) Diabetes mellitus, type 2 Status: Chronic Qualifiers: Qualified Codes: E11.621 - Type 2 diabetes mellitus with foot ulcer; L97.509 - Non-pressure chronic ulcer of other part of unspecified foot with unspecified severity (4) Hypertension Status: Chronic Qualifiers: Qualified Codes: I10 - Essential (primary) hypertension (5) Diabetic ketoacidosis Status: Resolved (6) DVT prophylaxis Status: Acute (7) Osteomyelitis of toe of right foot Status: Acute Hospital Course Date of Admission: Oct 29, 2020 at 17:13 Admission Diagnosis : Family Physician/Provider: Date of Discharge: 11/08/20 Discharge Diagnosis: amputation of right great toe, s/p DKA Hospital Course: Hospital course: Pt had a lengthy hospital course for eleven days after he was admitted for right osteomyelitis of the great toe, Dr. Cuevas evaluated him, underwent an amputation of the great toe with good results, wound-vac was placed along with empiric antibiotics. Overall he was able to continue the wound-vac, home health was maintained under his orders, antibiotics were completed, home meds were restarted along with insulin with insulin pen and pen needles with glucometer supplies. Overall he was found to be stable for discharge in improved condition. Wheelchair was ordered also. Labs and Pending Lab Test: Laboratory Tests 11/07/20 10:42: Glucometer 243H 11/07/20 15:45: Glucometer 195H 11/07/20 20:14: Glucometer 138H 11/08/20 05:52: White Blood Count 9.6, Red Blood Count 3.87L, Hemoglobin 10.5L, Hematocrit 33L, Mean Corpuscular Volume 86, Mean Corpuscular Hemoglobin 27, Mean Corpuscular Hemoglobin Concent 31L, Red Cell Distribution Width 13.2, Platelet Count 456H, Mean Platelet Volume 9.2, Immature Granulocyte % (Auto) 2, Neutrophils (%) (Auto) 58, Lymphocytes (%) (Auto) 31, Monocytes (%) (Auto) 6, Eosinophils (%) (Auto) 3, Basophils (%) (Auto) 1, Neutrophils # (Auto) 5.6, Lymphocytes # (Auto) 2.9, Monocytes # (Auto) 0.6, Eosinophils # (Auto) 0.3, Basophils # (Auto) 0.1, Immature Granulocyte # (Auto) 0.2H, Sodium Level 133L, Potassium Level 4.8, Chloride Level 102, Carbon Dioxide Level 23, Anion Gap 8, Blood Urea Nitrogen 34H, Creatinine 1.24, Estimat Glomerular Filtration Rate > 60, BUN/Creatinine Ratio 27, Glucose Level 98, Calcium Level 8.7, Corrected Calcium 9.5, Total Bilirubin 0.2, Aspartate Amino Transf (AST/SGOT) 31, Alanine Aminotransferase (ALT/SGPT) 25, Alkaline Phosphatase 71, Total Protein 7.7, Albumin 3.0L Microbiology 10/29/20 MRSA Screen - Final, Complete MRSA not isolated 10/29/20 Urine Culture - Final, Complete YEAST Klebsiella oxytoca See Comments 10/29/20 Blood Culture - Final, Complete No growth 10/29/20 Gram Stain - Final, Complete 10/29/20 Wound Culture - Final, Complete Gram Pos Mixed Bacterial Nancy Streptococcus pyogenes Grp A See Comments Home Meds Active [place] Blood Gluc Sys (Blood-Glucose Meter) 1 Each Each Each MC ACHS Novolog Flexpen (Insulin Aspart) 300 Units/3 Ml Solution 10 Units SQ AC [place] Pen [place] ([place], Insulin Disposable) 1 Each Dis.needle Each MC ACHS Levemir Flextouch (Insulin Detemir) 100 Unit/1 Ml Insuln.pen 20 Unit SQ BID HYDROcodone/APAP 5 MG/325 MG TAB (Acetaminophen/Hydrocodone Bitart) 1 Tab Tab 1 Ea PO Q4H PRN Lisinopril 20 Mg Tablet 20 Mg PO DAILY Metoprolol Tartrate 25 Mg Tablet 25 Mg PO BID Lipitor (Atorvastatin Calcium) 40 Mg Tablet 40 Mg PO HS Assessment/Pt Instructions [facility] 1 week Discharge Planning: <30 minutes discharge planning Discharge Instructions Discharge Diet: ADA Diet Activity as Tolerated: Yes Discharge Physical Examination Vital Signs Vital Signs Date Time Temp Pulse Resp B/P (MAP) Pulse Ox O2 Delivery O2 Flow Rate FiO2 11/08/20 08:00 99 Room Air 11/08/20 07:15 36.4 77 18 120/76 (91) General Appearance: No Apparent Distress, WD/WN, Chronically ill Respiratory: Lungs Clear Cardiovascular: Regular Rate, Rhythm Allergies: Coded Allergies: No Known Drug Allergies (Unverified , 10/29/20) Discharge Summary Date of Admission Oct 29, 2020 at 17:13 Date of Discharge Discharge Date: November 08, 2020 Admission Diagnosis Assessment: DKA Right great toe cellulitis with ostemyelitis HTN HLP Plan: Insulin IV abx Dr Cuevas Discharge Diagnosis Assessment: DKA Right great toe cellulitis with osteomyelitis s/p amputation Dr Cuevas POD # 0 HTN HLP Plan: Insulin IV abx Dr Cuevas 10/31/20: Insulin decreased s/p amputation CHANTELL HAHN DO November 08, 2020 10:15
[2020-11-08 12:23] VITALS: BP 120/76
[2020-11-08 16:11] VITALS: BP 129/76
== END 2020-11-08 18:15 | disposition home health service (06) | DRG 617 ==
LOC: EDUNIT# 15:02 → ER 15:04 → ICU 17:13 → 4TH 10-30 13:13
PROVIDERS: ADMIT Internal Medicine; ATTEND Internal Medicine
PROC: 0Y6M0Z9 Detachment at Right Foot, Partial 1st Ray, Open Approach (ICD-10-PCS; principal; 2020-10-31 09:34)
DX: E11.69 Type 2 diabetes mellitus with other specified complication (principal); M86.8X7 Other osteomyelitis, ankle and foot; N39.0 Urinary tract infection, site not specified; E11.10 Type 2 diabetes mellitus with ketoacidosis without coma; Z90.49 Acquired absence of other specified parts of digestive tract; Z79.4 Long term (current) use of insulin; I10 Essential (primary) hypertension; E78.5 Hyperlipidemia, unspecified; L03.031 Cellulitis of right toe; B96.1 Klebsiella pneumoniae [K. pneumoniae] as the cause of diseases classified elsewhere; E11.621 Type 2 diabetes mellitus with foot ulcer; S92.404A Nondisplaced unspecified fracture of right great toe, initial encounter for closed fracture; L89.109 Pressure ulcer of unspecified part of back, unspecified stage; L97.529 Non-pressure chronic ulcer of other part of left foot with unspecified severity; L97.519 Non-pressure chronic ulcer of other part of right foot with unspecified severity; R06.02 Shortness of breath; R05 Cough; Z91.14 Patient's other noncompliance with medication regimen
CPT/HCPCS: 36415; 71045; 71275; 73630; 80048; 80053; 80202; 81000; 82010; 82947; 82962; 83036; 83605; 83735; 84100; 85025; 85027; 85379; 85610; 85652; 87040; 87070; 87077; 87081; 87088; 87186; 87205; 88305; 88311; 96361; 96365; 96375; 96376

== ENCOUNTER 2020-12-07 15:02 | Inpatient (IN) | payer MEDICARE, MEDICAID ==
[~2020-12-07] VITALS: Ht 182.8 cm; Wt 102.0 kg
[~2020-12-07 15:02] MED LIST changes: +ACHD5005 PO; +ATOR40TA PO; +INSU100I14 SQ; +INSU100I29 SQ; +LISI20TA26 PO; +METO-333 PO; +NEED-474 MC; +[UNRECOGNIZED DRUG - CODE] MC
[2020-12-07 15:40] LABS: BILIRUBIN,URINE NEGATIVE (NEGATIVE); CLARITY,URINE CLOUDY; COLOR,URINE YELLOW; GLUCOSE, URINE (UA) TRACE (NEGATIVE); KETONES,URINE NEGATIVE (NEGATIVE); LEUKOCYTE ESTERASE ,URINE 2+ (NEGATIVE); NITRITE,URINE NEGATIVE (NEGATIVE); PROTEIN,URINE 2+ (NEGATIVE)
[2020-12-07 15:47] LABS: RBC,URINE 0-2 /HPF
[2020-12-07 15:48] LABS: BACTERIA,URINE NEGATIVE /HPF; WBC,URINE TNTC /HPF; YEAST,URINE MODERATE /HPF
--- NOTE | 2020-12-07 16:30 | ED General ---
General Chief Complaint: General Problems/Pain Stated Complaint: WOUND VAC ISSUES Nursing Triage Note: TO ED PER W/C HAD TOE AMPUTATION IN OCTOBER HAS WOUND VAC IN PLACE IS BEING SEEN BY HOME HEALTH WAS TOLD BY HOME HEALTH TO COME TO ED POOR HX GIVEN BY PATIENT. DID GET BOTH COVID VACCAINE. Nursing Sepsis Screen: No Definite Risk Source of Information: Patient Exam Limitations: No Limitations History of Present Illness Date Seen by Provider: Dec 07, 2020 Time Seen by Provider: 15:15 Initial Comments This 50-year-old gentleman presents to the emergency room at the direction of his home health nursing staff because of a possible infected wound on the right foot where he had a great toe amputation October 29. He has been receiving home health but has not followed up with Dr. Cuevas since the surgery. He reports a follow-up appointment is scheduled for December 09 and a wound care appointment is scheduled for December 10. His right foot and leg are markedly swollen and he has very foul purulent drainage and tissue in the open wound from the amputation. T he wound was not closed at the time of surgery due to edema. Patient is diabetic and reports his blood sugars have been consistently over 200 recently. He is afebrile. He also reports a little bit of cough and runny nose which he states is "a cold". He has been vaccinated for Covid. Allergies and Home Medications Allergies Coded Allergies: No Known Drug Allergies (Unverified , 10/29/20) Home Medications Atorvastatin Calcium 40 Mg Tablet, 40 MG PO HS Prescribed by: CHANTELL HAHN on 11/08/20 1013 Hydrocodone Bit/Acetaminophen 1 Tab Tab, 1 EA PO Q4H PRN for PAIN-MODERATE (5-7) Prescribed by: CHANTELL HAHN on 11/08/20 1013 Insulin Aspart 300 Units/3 Ml Solution, 10 UNITS SQ AC Prescribed by: CHANTELL HAHN on 11/08/20 1013 Insulin Detemir 100 Unit/1 Ml Insuln.pen, 20 UNIT SQ BID Prescribed by: CHANTELL HAHN on 11/08/20 1013 Lisinopril 20 Mg Tablet, 20 MG PO DAILY Prescribed by: CHANTELL HAHN on 11/08/20 1013 Metoprolol Tartrate 25 Mg Tablet, 25 MG PO BID Prescribed by: CHANTELL HAHN on 11/08/20 1013 Patient Home Medication List Home Medication List Reviewed: Yes Review of Systems Review of Systems Constitutional: no symptoms reported EENTM: see HPI Respiratory: see HPI Cardiovascular: no symptoms reported Gastrointestinal: no symptoms reported Genitourinary: no symptoms reported Musculoskeletal: see HPI Skin: see HPI Psychiatric/Neurological: No Symptoms Reported Hematologic/Lymphatic: No Symptoms Reported Past Svsgnxm-Nnukdu-Htgyly Hx Past Med/Social Hx: Reviewed Nursing Past Med/Soc Hx Patient Social History 2nd Hand Smoke Exposure: No Recent Infectious Disease Expo: No Recent Hopitalizations: No Past Medical History Surgeries: Yes (L FOOT AMPUTATION. Cervical spine surgery.) Amputation, Appendectomy, Gallbladder, Orthopedic Respiratory: No Cardiac: No Neurological: Yes Neuropathy Genitourinary: No Gastrointestinal: No Musculoskeletal: Yes Amputee, Fractures Endocrine: Yes Diabetes, Insulin dep HEENT: No Loss of Vision: Bilateral Hearing Impairment: Denies Cancer: No Psychosocial: No Integumentary: No Blood Disorders: No Adverse Reaction/Blood Tranf: No Family Medical History Cancer, Diabetes, Lung Disease [place] Physical Exam-Suspected Sepsis Physical Exam Vital Signs Vital Signs - First Documented 12/07/20 15:06 Temp 36.9 Pulse 98 Resp 18 B/P (MAP) 147/80 (102) Pulse Ox 99 O2 Delivery Room Air Capillary Refill : Less Than 3 Seconds Blood Pressure Mean: 102 Height, Weight, BMI Height: '" Weight: lbs. oz. kg; 29.00 BMI Method: General Appearance: No Apparent Distress, WD/WN HEENT: Normal ENT Inspection Neck: Normal Inspection Respiratory: Lungs Clear, Normal Breath Sounds, No Accessory Muscle Use Cardiovascular: Regular Rate, Rhythm, No Edema, No Murmur Gastrointestinal: Normal Bowel Sounds, Non Tender, Soft Extremity: Other (Right foot and leg are markedly edematous. He has tenderness in the right calf. The open wound from the right great toe amputation is full of purulent tissue and drainage with foul odor.) Neurologic/Psychiatric: Alert, Oriented x3, No Motor/Sensory Deficits, Normal Mood/Affect, regional sales coordinator II-XII Norm as Tested Skin: normal color, warm/dry Focused Exam Lactate Level 12/07/20 16:55: Lactic Acid Level 0.71 Lactic Acid Level Laboratory Tests Test 12/07/20 16:55 Lactic Acid Level 0.71 MMOL/L (0.50-2.00) Progress/Results/Core Measures Suspected Sepsis Recent Fever Within 48 Hours: No Infection Criteria Present: None New/Unexplained Altered Menta: No Sepsis Screen: No Definite Risk SIRS Temperature: Pulse: 98 Respiratory Rate: 18 Laboratory Tests 12/07/20 16:55: White Blood Count 14.2H Blood Pressure 147 /80 Mean: 102 12/07/20 16:55: Lactic Acid Level 0.71 Laboratory Tests 12/07/20 16:55: Creatinine 1.16, INR Comment 1.1, Platelet Count 423H, Total Bilirubin 0.3 Results/Orders Lab Results Laboratory Tests Test 12/07/20 15:32 12/07/20 16:55 Range/Units Urine Color YELLOW Urine Clarity CLOUDY Urine pH 6.0 5-9 Urine Specific [place] >=1.030 1.016-1.022 Urine Protein 2+ H NEGATIVE Urine Glucose (UA) TRACE H NEGATIVE Urine Ketones NEGATIVE NEGATIVE Urine Nitrite NEGATIVE NEGATIVE Urine Bilirubin NEGATIVE NEGATIVE Urine Urobilinogen 0.2 < = 1.0 MG/DL Urine Leukocyte Esterase 2+ H NEGATIVE Urine RBC (Auto) 2+ H NEGATIVE Urine RBC 0-2 /HPF Urine WBC TNTC H /HPF Urine Squamous Epithelial Cells NONE /HPF Urine Crystals NONE /LPF Urine Bacteria NEGATIVE /HPF Urine Casts NONE /LPF Urine Mucus NEGATIVE /LPF Urine Yeast MODERATE H /HPF Urine Culture Indicated YES SARS-CoV-2 RNA (RT-PCR) Not Detected Not Detecte White Blood Count 14.2 H 4.3-11.0 10^3/uL Red Blood Count 3.78 L 4.30-5.52 10^6/uL Hemoglobin 9.9 L 13.3-17.7 g/dL Hematocrit 32 L 40-54 % Mean Corpuscular Volume 83 80-99 fL Mean Corpuscular Hemoglobin 26 25-34 pg Mean Corpuscular Hemoglobin Concent 31 L 32-36 g/dL Red Cell Distribution Width 13.7 10.0-14.5 % Platelet Count 423 H 130-400 10^3/uL Mean Platelet Volume 9.4 9.0-12.2 fL Immature Granulocyte % (Auto) 1 % Neutrophils (%) (Auto) 77 H 42-75 % Lymphocytes (%) (Auto) 16 12-44 % Monocytes (%) (Auto) 6 0-12 % Eosinophils (%) (Auto) 0 0-10 % Basophils (%) (Auto) 0 0-10 % Neutrophils # (Auto) 10.9 H 1.8-7.8 10^3/uL Lymphocytes # (Auto) 2.2 1.0-4.0 10^3/uL Monocytes # (Auto) 0.9 0.0-1.0 10^3/uL Eosinophils # (Auto) 0.1 0.0-0.3 10^3/uL Basophils # (Auto) 0.1 0.0-0.1 10^3/uL Immature Granulocyte # (Auto) 0.1 0.0-0.1 10^3/uL Neutrophils % (Manual) 77 % Lymphocytes % (Manual) 18 % Monocytes % (Manual) 3 % Eosinophils % (Manual) 1 % Basophils % (Manual) 0 % Band Neutrophils 0 % Reactive Lymphocytes 1 % Blood Morphology Comment NORMAL Prothrombin Time 14.1 12.2-14.7 SEC INR Comment 1.1 0.8-1.4 Activated Partial Thromboplast Time 30 24-35 SEC D-Dimer 2.55 H 0.00-0.49 UG/ML Sodium Level 132 L 135-145 MMOL/L Potassium Level 4.3 3.6-5.0 MMOL/L Chloride Level 99 98-107 MMOL/L Carbon Dioxide Level 22 21-32 MMOL/L Anion Gap 11 5-14 MMOL/L Blood Urea Nitrogen 34 H 7-18 MG/DL Creatinine 1.16 0.60-1.30 MG/DL Estimat Glomerular Filtration Rate > 60 BUN/Creatinine Ratio 29 Glucose Level 154 H 70-105 MG/DL Lactic Acid Level 0.71 0.50-2.00 MMOL/L Calcium Level 8.7 8.5-10.1 MG/DL Corrected Calcium 9.3 8.5-10.1 MG/DL Total Bilirubin 0.3 0.1-1.0 MG/DL Aspartate Amino Transf (AST/SGOT) 22 5-34 U/L Alanine Aminotransferase (ALT/SGPT) 22 0-55 U/L Alkaline Phosphatase 67 40-136 U/L C-Reactive Protein High Sensitivity 4.44 H 0.00-0.50 MG/DL Total Protein 8.0 6.4-8.2 GM/DL Albumin 3.2 3.2-4.5 GM/DL My Orders Orders - GE HORVATH MD Cbc With Automated Diff (12/07/20 15:20) Comprehensive Metabolic Panel (12/07/20 15:20) Blood Culture (12/07/20 15:20) Sputum Culture (12/07/20 15:20) Urinalysis (12/07/20 15:20) Urine Culture (12/07/20 15:20) Protime With Inr (12/07/20 15:20) Partial Thromboplastin Time (12/07/20 15:20) Chest 1 View, Ap/Pa Only (12/07/20 15:20) Ed Iv/Invasive Line Start (12/07/20 15:20) Vital Signs Adult Sepsis Patie Q15M (12/07/20 15:20) Remove Rings In Anticipation O (12/07/20 15:20) Lactic Acid Analyzer (12/07/20 15:20) Foot, Right, 3 View (12/07/20 15:20) Hs C Reactive Protein (12/07/20 15:25) Covid 19 Inhouse Test (12/07/20 15:29) Fibrin Degradation Products (12/07/20 16:31) Manual Differential (12/07/20 16:55) Piperacillin Sodium/Tazobactam (Zosyn Vi (12/07/20 18:00) Enoxaparin Injection (Lovenox Injection) (12/07/20 18:00) Medications Given in ED Current Medications Medications Dose Ordered Sig/Zhao Route Start Time Stop Time Status Last Admin Dose Admin Enoxaparin Sodium 100 mg ONCE ONCE SC 12/07/20 18:00 12/07/20 18:01 DC 12/07/20 18:18 100 MG Piperacillin Sod/ Tazobactam Sod 4.5 gm/Sodium Chloride 100 ml @ 200 mls/hr ONCE ONCE IV 12/07/20 18:00 12/07/20 18:29 DC 12/07/20 19:01 200 MLS/HR Vital Signs/I&O 12/07/20 15:06 Temp 36.9 Pulse 98 Resp 18 B/P (MAP) 147/80 (102) Pulse Ox 99 O2 Delivery Room Air Capillary Refill : Less Than 3 Seconds Blood Pressure Mean: 102 Progress Note : Progress Note Patient had signs of sepsis with tachycardia and leukocytosis with 2 sources of infection being the right foot and urinary tract infection. Zosyn was started in the emergency room. Vancomycin will be added on admission. D-dimer was elevated raising concern about DVT in the right leg. Lovenox is being administered empirically at this time and an ultrasound will be obtained in the morning. I will continue patient's usual insulin dosing and add sliding scale insulin. Case was discussed with Dr. Cuevas who will evaluate the wound in the morning and considered debridement if appropriate. He agrees with antibiotic therapy. Case was discussed with Dr. Hahn as well. Covid swab screening was negative. Diagnostic Imaging Diagonstic Imaging: Xray Plain Films/CT/US/NM/MRI: chest Comments NAME: DWAY[facility] ALLISON [facility] REC#: [id number] PT STATUS: REG ER : 1970 PHYSICIAN: GE HORVATH MD ADMIT DATE: 12/07/20/ER Signed Date of Exam:12/07/20 CHEST 1 VIEW, AP/PA ONLY INDICATION: Sepsis. FINDINGS: The heart size, mediastinal configuration, and pulmonary vascularity are within normal limits. There is no pleural effusion, pneumothorax, or pneumonia. The osseous structures are unremarkable. IMPRESSION: No acute cardiopulmonary abnormality. Dictated by: Dictated on workstation # [id number] Dict: 12/07/20 172 Trans: 12/07/201726 [facility] [id number] Interpreted by: BENEDICTO MCKENZIE MD Electronically signed by: BENEDICTO MCKENZIE MD 12/07/201726 Reviewed: Reviewed by Me Diagonstic Imaging: Xray Plain Films/CT/US/NM/MRI: other (Right foot) Comments NAME: DWAYNE ALLISON [facility] REC#: [id number] PT STATUS: REG ER : 1970 PHYSICIAN: GE HORVATH MD ADMIT DATE: 12/07/20/ER Signed Date of Exam:12/07/20 FOOT, RIGHT, 3 VIEW INDICATION: Right foot pain. TIME OF EXAM: 05:16 p.m. FINDINGS: Postop changes of amputation of the right great toe are noted. There is some lucency in the soft tissues at the level of the amputation. Ulcer crater cannot be excluded and correlation clinically is recommended. The underlying bones of the first metatarsal appear to be intact without destructive changes. Second through fifth metatarsals and phalanges appear to be intact. Midfoot and hindfoot are unremarkable apart from a plantar calcaneal spur. IMPRESSION: Amputation of the great toe. Questionable soft tissue ulcer but no underlying bony destructive changes are seen. Dictated by: Dictated on workstation # [id number] Dict: 12/07/20 1720 Trans: 12/07/20 1840 AS6 [id number] Interpreted by: JANAE NEFF MD Electronically signed by: JANAE NEFF MD 12/07/201839 Reviewed: Reviewed by Me Departure Communication (Admissions) Time/Spoke to Admitting Phy: 17:51 Dr. Hahn Time/Spoke to Consulting Phy: 17:47 Dr. Cuevas Impression Primary Impression: Sepsis Qualified Codes: A41.9 - Sepsis, unspecified organism Additional Impressions: Wound infection Urinary tract infection Qualified Codes: N39.0 - Urinary tract infection, site not specified Elevated d-dimer Disposition: ADMITTED INPATIENT Condition: Improved Admissions Decision to Admit Reason: Admit from ER (General) Decision to Admit/Date: Dec 07, 2020 Time/Decision to Admit Time: 17:43 Departure-Patient Inst. Referrals: FABY GARCIA MD (PCP/Family) Primary Care Physician GE HORVATH MD Dec 07, 2020 16:30
[2020-12-07 17:11] LABS: BASOPHILS # (AUTO) 0.1 10^3/uL (0.0-0.1); BASOPHILS % (AUTO) 0 % (0-10); EOSINOPHILS # (AUTO) 0.1 10^3/uL (0.0-0.3); EOSINOPHILS % (AUTO) 0 % (0-10); HEMATOCRIT 32 % (40-54); HEMOGLOBIN 9.9 g/dL (13.3-17.7); LYMPHOCYTES # (AUTO) 2.2 10^3/uL (1.0-4.0); LYMPHOCYTES % (AUTO) 16 % (12-44); MEAN CORPUSCULAR HEMOGLOBIN 26 pg (25-34); MEAN CORPUSCULAR HGB CONC 31 g/dL (32-36); MEAN CORPUSCULAR VOLUME 83 fL (80-99); MEAN PLATELET VOLUME 9.4 fL (9.0-12.2); MONOCYTES # (AUTO) 0.9 10^3/uL (0.0-1.0); MONOCYTES % (AUTO) 6 % (0-12); NEUTROPHILS # (AUTO) 10.9 10^3/uL (1.8-7.8); NEUTROPHILS % (AUTO) 77 % (42-75); PLATELET COUNT 423 10^3/uL (130-400); WHITE BLOOD COUNT 14.2 10^3/uL (4.3-11.0)
--- NOTE | 2020-12-07 17:21 | Diagnostic Imaging Report ---
INDICATION: Sepsis. FINDINGS: The heart size, mediastinal configuration, and pulmonary vascularity are within normal limits. There is no pleural effusion, pneumothorax, or pneumonia. The osseous structures are unremarkable. IMPRESSION: No acute cardiopulmonary abnormality. Dictated by: Dictated on workstation # [id number]
[2020-12-07 17:25] LABS: ALBUMIN 3.2 GM/DL (3.2-4.5); CHLORIDE 99 MMOL/L (98-107); POTASSIUM 4.3 MMOL/L (3.6-5.0); SODIUM 132 MMOL/L (135-145)
[2020-12-07 17:26] LABS: CALCIUM 8.7 MG/DL (8.5-10.1); INR 1.1 (0.8-1.4); PROTHROMBIN TIME PATIENT 14.1 SEC (12.2-14.7)
--- NOTE | 2020-12-07 17:26 | Diagnostic Imaging Report ---
INDICATION: Right foot pain. TIME OF EXAM: 05:16 p.m. FINDINGS: Postop changes of amputation of the right great toe are noted. There is some lucency in the soft tissues at the level of the amputation. Ulcer crater cannot be excluded and correlation clinically is recommended. The underlying bones of the first metatarsal appear to be intact without destructive changes. Second through fifth metatarsals and phalanges appear to be intact. Midfoot and hindfoot are unremarkable apart from a plantar calcaneal spur. IMPRESSION: Amputation of the great toe. Questionable soft tissue ulcer but no underlying bony destructive changes are seen. Dictated by: Dictated on workstation # [id number]
[2020-12-07 17:27] LABS: GLUCOSE 154 MG/DL (70-105)
[2020-12-07 17:28] LABS: BAND NEUTROPHILS 0 %; BASOPHILS % (MANUAL) 0 %; CARBON DIOXIDE 22 MMOL/L (21-32); EOSINOPHILS % (MANUAL) 1 %; LYMPHOCYTES % (MANUAL) 18 %; MONOCYTES % (MANUAL) 3 %; NEUTROPHILS % (MANUAL) 77 %; REACTIVE LYMPHOCYTES 1 %
[2020-12-07 17:29] LABS: BILIRUBIN,TOTAL 0.3 MG/DL (0.1-1.0); RBC MORPH NORMAL
[2020-12-07 17:31] LABS: ALKALINE PHOSPHATASE 67 U/L (40-136); CREATININE SERUM 1.16 MG/DL (0.60-1.30); GFR ESTIMATED > 60
[2020-12-07 17:32] LABS: BUN/CREATININE RATIO 29
[2020-12-07 17:34] LABS: ALANINE AMINOTRANSFERASE 22 U/L (0-55)
[2020-12-07] MEDS ORDERED: PIPERACILLIN SODIUM/TAZOBACTAM 4.5 GM in NS (IVPB) 100 ML IV ONE (18:00)
[2020-12-07] MEDS ORDERED: ENOXAPARIN 100 MG/1 ML (LOVENOX) SYR SC ONE (18:00)
[2020-12-07] MEDS ORDERED: morphine INJ 10 MG/ML 1ML (SYR OR VIAL) IVP PRN (20:30)
[2020-12-07] MEDS ORDERED: DOCUSATE SODIUM 100 MG (COLACE) CAP PO PRN (20:30)
[2020-12-07] MEDS ORDERED: diphenhydrAMINE 25 MG TAB (BENADRYL) PO PRN (20:30)
[2020-12-07] MEDS ORDERED: ONDANSETRON 4 MG/2 ML (SDV) Z0FRAN IVP PRN (20:30)
[2020-12-07] MEDS ORDERED: CALCIUM CARBONATE 500 MG (TUMS) TAB.CHEW PO PRN (20:30)
[2020-12-07] MEDS ORDERED: LOPERAMIDE 2 MG (IMODIUM) TABLET PO PRN (20:30)
[2020-12-07] MEDS ORDERED: VANCOMYCIN 2000 MG/NS 500 ML IVPB IV NR ×2 (20:30)
[2020-12-07] MEDS ORDERED: CATHETER FLUSH 10 ML SYR IV PRN (20:30)
[2020-12-07] MEDS ORDERED: ACETAMINOPHEN 500 MG TAB (TYLENOL) PO PRN (20:30)
[2020-12-07] MEDS ORDERED: ALPRAZolam 0.25 MG (XANAX) TAB PO PRN (20:30)
[2020-12-07] MEDS ORDERED: MELATONIN 3 MG TABLET PO PRN (20:30)
[2020-12-07] MEDS: SENNA W/DOCUSATE (SENOKOT S) TABLET PO SCH (22:04)
[2020-12-07] MEDS: LACTATED RINGERS 1,000 ML IV SCH (22:04)
[2020-12-07] MEDS: meTOprolol TARTRATE 25 MG (LOPRESSOR) TABLET PO SCH (22:04)
[2020-12-08 00:12] VITALS: BP 151/81
[2020-12-08] MEDS: PIPERACILLIN/TAZO 4.5 GM/NS 100 ML IV SCH ×6 (01:52→17:07)
[2020-12-08 03:48] VITALS: BP 137/87
[2020-12-08] MEDS: LACTATED RINGERS 1,000 ML IV SCH ×3 (04:06→17:07)
[2020-12-08 04:45] LABS: BASOPHILS # (AUTO) 0.1 10^3/uL (0.0-0.1); BASOPHILS % (AUTO) 1 % (0-10); EOSINOPHILS # (AUTO) 0.1 10^3/uL (0.0-0.3); EOSINOPHILS % (AUTO) 1 % (0-10); HEMATOCRIT 30 % (40-54); HEMOGLOBIN 9.5 g/dL (13.3-17.7); LYMPHOCYTES # (AUTO) 1.9 10^3/uL (1.0-4.0); LYMPHOCYTES % (AUTO) 22 % (12-44); MEAN CORPUSCULAR HEMOGLOBIN 26 pg (25-34); MEAN CORPUSCULAR HGB CONC 32 g/dL (32-36); MEAN CORPUSCULAR VOLUME 83 fL (80-99); MEAN PLATELET VOLUME 9.3 fL (9.0-12.2); MONOCYTES # (AUTO) 0.7 10^3/uL (0.0-1.0); MONOCYTES % (AUTO) 8 % (0-12); NEUTROPHILS % (AUTO) 68 % (42-75); PLATELET COUNT 369 10^3/uL (130-400); WHITE BLOOD COUNT 8.7 10^3/uL (4.3-11.0)
[2020-12-08 04:57] LABS: ALBUMIN 2.8 GM/DL (3.2-4.5); CHLORIDE 102 MMOL/L (98-107); POTASSIUM 4.2 MMOL/L (3.6-5.0); SODIUM 134 MMOL/L (135-145)
[2020-12-08 04:58] LABS: CALCIUM 8.5 MG/DL (8.5-10.1)
[2020-12-08 05:00] LABS: GLUCOSE 157 MG/DL (70-105); TOTAL PROTEIN 7.1 GM/DL (6.4-8.2)
[2020-12-08 05:01] LABS: CARBON DIOXIDE 23 MMOL/L (21-32)
[2020-12-08 05:02] LABS: BILIRUBIN,TOTAL 0.3 MG/DL (0.1-1.0)
[2020-12-08] MEDS: inSUlin ASPART (NovoLOG) 1 UNIT/0.01 ML (CHARGE PER UNIT) SC SCH ×7 (05:02→21:52)
[2020-12-08 05:03] LABS: ALKALINE PHOSPHATASE 57 U/L (40-136); CREATININE SERUM 1.09 MG/DL (0.60-1.30); GFR ESTIMATED > 60
[2020-12-08 05:04] LABS: BUN/CREATININE RATIO 27
[2020-12-08 05:06] LABS: ALANINE AMINOTRANSFERASE 20 U/L (0-55)
--- NOTE | 2020-12-08 06:23 | History & Physical-Hospitalist ---
History of Present Illness HPI/Chief Complaint CC: Right foot pain HPI: This is a 50yoWM known to me from prior admission several weeks ago after requiring a right great toe amputation. Now he presents with cellulitis but no evidence of any osteomyelitis. Dr. Villanueva will be consulted. Picc line was placed due to poor IV access and ultrasound was negative so will initiate Lovenox of 40 daily. Home meds have been restarted. Patient denies any more pain since admit. Source: patient Exam Limitations: no limitations Date Seen 12/08/20 Time Seen by a Provider: 11:00 Attending Physician Marla White DO PCP Travis Slater MD Referring Physician Date of Admission Dec 07, 2020 at 18:18 Home Medications & Allergies Home Medications Reviewed patient Home Medication Reconciliation performed by pharmacy medication reconciliations radioactivity technician and/or nursing. Patients Allergies have been reviewed. Allergies Allergies Coded Allergies No Known Drug Allergies (Unverified10/29/20) Past Lyoivtj-Csxjsz-Usubeg Hx Patient Social History Marrital Status: single Employed/Student: unemployed Tobacco Use?: No Smoking Status: Never a Smoker Smokeless Tobacco Frequency: Never a User Use of E-Cig and/or Vaping dev: No Substance use?: No Alcohol Use?: No Pt feels they are or have been: No Current Status Advance Directives: No Communicates: Verbally Primary Language: [place] Preferred Spoken Language: [place] Is interpretation needed?: No Past Medical History Surgeries: Amputation, Appendectomy, Gallbladder, Orthopedic Neuropathy Amputee, Fractures Diabetes, Insulin dep Loss of Vision: Bilateral Hearing Impairment: Denies Blood Disorders: No Adverse Reaction/Blood Tranf: No DM HTN HLP Family Medical History Cancer, Diabetes, Lung Disease [place] Review of Systems Constitutional: see HPI, weakness Skin: rash Physical Exam Physical Exam Vital Signs Vital Signs - First Documented 12/07/20 15:06 Temp 36.9 Pulse 98 Resp 18 B/P (MAP) 147/80 (102) Pulse Ox 99 O2 Delivery Room Air Capillary Refill : Less Than 3 Seconds Height, Weight, BMI Height: '" Weight: lbs. oz. kg; 30.52 BMI Method: General Appearance: No Apparent Distress, Chronically ill Eyes: Right Eye Normal Inspection, Right Eye PERRL HEENT: PERRL/EOMI, Normal ENT Inspection, Pharynx Normal, Moist Mucous Membranes Neck: Full Range of Motion, Normal Inspection, Non Tender Respiratory: Chest Non Tender, Lungs Clear, Normal Breath Sounds, No Accessory Muscle Use, No Respiratory Distress Cardiovascular: Regular Rate, Rhythm, No Gallop, No JVD, No Murmur, Normal Peripheral Pulses Gastrointestinal: Normal Bowel Sounds, No Organomegaly, No Pulsatile Mass, Non Tender, Soft Back: Normal Inspection, No CVA Tenderness, No Vertebral Tenderness Extremity: Normal Capillary Refill, Normal Inspection, Normal Range of Motion, Non Tender, No Calf Tenderness, Pedal Edema Neurologic/Psychiatric: Alert, Oriented x3, No Motor/Sensory Deficits, Normal Mood/Affect Skin: Normal Color, Warm/Dry, Other (right foot in dressing) Lymphatic: No Adenopathy Results Results/Procedures Labs Laboratory Tests 12/07/20 16:55 12/08/20 04:36 Patient resulted labs reviewed. Assessment/Plan Admission Diagnosis Assessment: Right great toe cellulitis DM h/o DKA HTN Plan: Home meds Insulin IV abx Surgery consult [facility] Admission Status: Inpatient Order (span 2 midnights) Reason for Inpatient Admission: cellulitis of the amputaiton site Diagnosis/Problems Diagnosis/Problems (1) Wound infection Status: Acute (2) Elevated d-dimer Status: Acute (3) Amputated toe of right foot (4) Diabetes mellitus, type 2 Status: Chronic (5) Hypertension Status: Chronic (6) DVT prophylaxis Status: Acute MARLA WHITE DO Dec 08, 2020 06:23
[2020-12-08 08:00] VITALS: BP 123/75
[2020-12-08] MEDS: meTOprolol TARTRATE 25 MG (LOPRESSOR) TABLET PO SCH ×2 (09:19→20:40)
[2020-12-08] MEDS: lisINopril 20 MG (PRINIVIL) TABLET PO SCH (09:19)
[2020-12-08] MEDS: SENNA W/DOCUSATE (SENOKOT S) TABLET PO SCH ×2 (09:19→20:37)
--- NOTE | 2020-12-08 09:40 | Diagnostic Imaging Report ---
PROCEDURE: US right lower extremity venous. TECHNIQUE: Multiple real-time grayscale images were obtained over the right lower extremity in various projections. Additional spectral analysis and color Doppler duplex images were also obtained. INDICATION: Sepsis and right foot wound. FINDINGS: There is no evidence of right lower extremity DVT. Right lower extremity deep venous system shows normal compressibility with normal response to augmentation and Valsalva. No fluid collection or mass is detected. IMPRESSION: No evidence of right lower extremity DVT. Dictated by: Dictated on workstation # [id number]
[2020-12-08] MEDS: VANCOMYCIN 1250 MG/NS 250 ML IVPB IV SCH ×4 (10:16→21:58)
[2020-12-08 12:00] VITALS: BP 128/82
[2020-12-08] MEDS ORDERED: METO-333 PO (14:07)
[2020-12-08] MEDS ORDERED: INSU100I29 SQ (14:07)
[2020-12-08] MEDS ORDERED: LISI20TA26 PO (14:07)
[2020-12-08] MEDS ORDERED: INSU100I14 SQ (14:07)
[2020-12-08] MEDS ORDERED: ATOR40TA70 PO (14:07)
[2020-12-08 16:15] VITALS: BP 122/74
[2020-12-08 20:00] VITALS: BP 113/72
[2020-12-08] MEDS: ENOXAPARIN 40 MG/0.4 ML (LOVENOX) SYR SC SCH (20:40)
[2020-12-08] MEDS: HYDROcodone/APAP 5 MG/325 MG (LORTAB) TAB PO PRN (20:40)
--- NOTE | 2020-12-08 22:46 | Consultation - Surgery ---
History of Present Illness History of Present Illness Patient Consulted On(niko/time) 12/08/20 22:35 Time Seen by Provider: 19:32 History of Present Illness Surgery asked to consult regarding right toe amputation. HPI per ED: This 50-year-old gentleman presents to the emergency room at the direction of his home health nursing staff because of a possible infected wound on the right foot where he had a great toe amputation October 29. He has been receiving home health but has not followed up with Dr. Cuevas since the surgery. He reports a follow-up appointment is scheduled for December 09 and a wound care appointment is scheduled for December 10. His right foot and leg are markedly s wollen and he has very foul purulent drainage and tissue in the open wound from the amputation. The wound was not closed at the time of surgery due to edema. Patient is diabetic and reports his blood sugars have been consistently over 200 recently. He is afebrile. He also reports a little bit of cough and runny nose which he states is "a cold". He has been vaccinated for Covid. When I saw pt he states he was feeling fine, but weak. He has not been controlling his DM and his home health nurse took off Wound VAC because she was worried about necrotic tissue. In the ER they were concerned about possible sepsis and admitted him. When I walked in to his room there was a very foul odor. Allergies and Home Medications Allergies Coded Allergies: No Known Drug Allergies (Unverified , 10/29/20) Home Medications Atorvastatin Calcium 40 Mg Tablet, 40 MG PO HS, (Reported) Last Action: Reviewed Insulin Aspart 300 Units/3 Ml Solution, 10 UNITS SQ AC, (Reported) Last Action: Reviewed Insulin Detemir 100 Unit/1 Ml Insuln.pen, 20 UNIT SQ BID, (Reported) Last Action: Reviewed Lisinopril 20 Mg Tablet, 20 MG PO DAILY, (Reported) Last Action: Reviewed Metoprolol Tartrate 25 Mg Tablet, 25 MG PO BID, (Reported) Last Action: Reviewed Patient Home Medication List Home Medication List Reviewed: Yes Past Fjyuixe-Jonosa-Ghjkne Hx Patient Social History Smoking Status: Never a Smoker 2nd Hand Smoke Exposure: No Recent Hopitalizations: No Alcohol Use?: No Have you traveled recently?: No Surgeries History of Surgeries: Yes (L FOOT AMPUTATION. Cervical spine surgery.) Surgeries: Amputation, Appendectomy, Gallbladder, Orthopedic Respiratory History of Respiratory Disorde: No Cardiovascular History of Cardiac Disorders: No Neurological History of Neurological Disord: Yes Neurological Disorders: Neuropathy Genitourinary History of Genitourinary Disor: No Gastrointestinal History of Gastrointestinal Di: No Musculoskeletal History of Musculoskeletal Dis: Yes Musculoskeletal Disorders: Amputee, Fractures Endocrine History of Endocrine Disorders: Yes Endocrine Disorders: Diabetes, Insulin dep HEENT History of HEENT Disorders: No Loss of Vision: Bilateral Hearing Impairment: Denies Cancer History of Cancer: No Psychosocial History of Psychiatric Problem: No Integumentary History of Skin or Integumenta: No Blood Transfusions History of Blood Disorders: No Adverse Reaction to a Blood Tr: No Family Medical History Significant Family History: Cancer, Diabetes, Lung Disease Review of Systems-General Constitutional: chills, diaphoresis, weakness EENTM: No blurred vision, No mouth pain, No mouth swelling, No epistaxis, No throat swelling Respiratory: No cough, No dyspnea on exertion, No short of breath Cardiovascular: No chest pain, No palpitations Gastrointestinal: No abdominal pain, No nausea, No vomiting Genitourinary: No dysuria, No frequency, No hematuria Musculoskeletal: joint pain, joint swelling, muscle stiffness, muscle cramps Skin: No change in color, No change in hair/nails Psychiatric/Neurological: Denies Anxiety, Denies Seizure, Denies Tremors Other pt denies any hx of abnormal bleeding or bruising Physical Exam-General Problems Physical Exam Vital Signs Vital Signs - First Documented 12/07/20 15:06 Temp 36.9 Pulse 98 Resp 18 B/P (MAP) 147/80 (102) Pulse Ox 99 O2 Delivery Room Air Capillary Refill : Less Than 3 Seconds General Appearance: WD/WN, no apparent distress Eyes: Bilateral Eye PERRL, Bilateral Eye EOMI HEENT: pharynx normal; No scleral icterus (R), No scleral icterus (L) Neck: non-tender, supple Respiratory: lungs clear, normal breath sounds, no respiratory distress, no accessory muscle use Cardiovascular: regular rate, rhythm, no murmur Gastrointestinal: non tender, soft, no organomegaly Back: no CVA tenderness, no vertebral tenderness Extremities: no pedal edema (left), no calf tenderness, pedal edema (right +2- 3), other (left foot trans-metatarsal amputation. Right foot at site of 1st toe amputation there is necrotic tissue, it is foul smelling, bone is visible but looks ok) Neurologic/Psychiatric: children's minister II-XII nml as tested, alert, oriented x 3 Skin: normal color, warm/dry Lymphatic: no adenopathy (neck, axilla or groin) Data Review Labs Laboratory Tests 12/08/20 04:36: White Blood Count 8.7, Red Blood Count 3.62L, Hemoglobin 9.5L, Hematocrit 30L, Mean Corpuscular Volume 83, Mean Corpuscular Hemoglobin 26, Mean Corpuscular Hemoglobin Concent 32, Red Cell Distribution Width 13.9, Platelet Count 369, Mean Platelet Volume 9.3, Immature Granulocyte % (Auto) 1, Neutrophils (%) (Auto) 68, Lymphocytes (%) (Auto) 22, Monocytes (%) (Auto) 8, Eosinophils (%) (Auto) 1, Basophils (%) (Auto) 1, Neutrophils # (Auto) 6.0, Lymphocytes # (Auto) 1.9, Monocytes # (Auto) 0.7, Eosinophils # (Auto) 0.1, Basophils # (Auto) 0.1, Immature Granulocyte # (Auto) 0.1, Sodium Level 134L, Potassium Level 4.2, Chloride Level 102, Carbon Dioxide Level 23, Anion Gap 9, Blood Urea Nitrogen 29H, Creatinine 1.09, Estimat Glomerular Filtration Rate > 60, BUN/Creatinine Ratio 27, Glucose Level 157H, Calcium Level 8.5, Corrected Calcium 9.5, Total Bilirubin 0.3, Aspartate Amino Transf (AST/SGOT) 21, Alanine Aminotransferase (ALT/SGPT) 20, Alkaline Phosphatase 57, Total Protein 7.1, Albumin 2.8L 12/08/20 10:01: Glucometer 126H 12/08/20 13:52: Glucometer 110 12/08/20 18:55: Glucometer 261H 12/08/20 21:37: Glucometer 165H Microbiology 12/07/20 Blood Culture - Preliminary, Resulted No growth 12/07/20 Urine Culture - Preliminary, Resulted YEAST Radiology Date of Exam:12/08/20 US VENOUS LOWER EXT RT PROCEDURE: US right lower extremity venous. TECHNIQUE: Multiple real-time grayscale images were obtained over the right lower extremity in various projections. Additional spectral analysis and color Doppler duplex images were also obtained. INDICATION: Sepsis and right foot wound. FINDINGS: There is no evidence of right lower extremity DVT. Right lower extremity deep venous system shows normal compressibility with normal response to augmentation and Valsalva. No fluid collection or mass is detected. IMPRESSION: No evidence of right lower extremity DVT. Dictated by: Dictated on workstation # [id number] Dict: 12/08/20 0937 Trans: 12/08/20 1558 [id number] Interpreted by: JANAE NEFF MD Electronically signed by: JANAE NEFF MD 12/08/20 1558 Assessment/Plan Assessment/Plan Assessment/Plan Necrotic, Non healing Wound DM - uncontrolled Peripheral Vascular disease UTI HTN Wound debrided at the bedside, will monitor this; may need further debridement. Will consult the wound care nurse for Wound Vac placement, iodophor packing in the meantime. Procedure Note Preop: Necrotic wound, foul smell Postop: Same Procedure: Debridement of necrotic tissue Surgeon: Faith anesthesia: none Specimen: necrotic tissue EBL: Scant Indications: Necrotic tissue Procedure: Pt was in his bed, using sharp debridement with scissors; all of the necrotic tissue was removed. The necrotic tissue was towards the plantar aspect of the foot. An area of about 2cm long by 1cm wide and went down about 1.5cm. Necrotic tissue was cut away down to fresh bleeding tissue. Pt tolerated the procedure without any difficulty. Packed the wound iodophor packing and will have the wound care nurse assess for VAC placement. SLIM CUEVAS DO Dec 08, 2020 22:46
[2020-12-09] VITALS (7 sets, daily range): BP systolic 117–157; BP diastolic 66–93
[2020-12-09] MEDS: PIPERACILLIN/TAZO 4.5 GM/NS 100 ML IV SCH ×6 (01:23→18:29)
[2020-12-09] MEDS: LACTATED RINGERS 1,000 ML IV SCH ×4 (01:25→19:11)
--- NOTE | 2020-12-09 05:26 | Progress Note - Hospitalist ---
Subjective HPI/CC On Admission Date Seen by Provider: Dec 09, 2020 Time Seen by Provider: 11:00 CC: Right foot pain HPI: This is a 50yoWM known to me from prior admission several weeks ago after requiring a right great toe amputation. Now he presents with cellulitis but no evidence of any osteomyelitis. Dr. Villanueva will be consulted. Picc line was placed due to poor IV access and ultrasound was negative so will initiate Lovenox of 40 daily. Home meds have been restarted. Patient denies any more pain since admit. Subjective/Events-last exam Patient doing about the same Dr. Cuevas evaluated the wound IV antibiotics maintained Wound VAC initiated Blood sugar was low today he does not wish to have any thing altered he just did not eat No pain is reported Review of Systems General: Fatigue Musculoskeletal: foot pain Focused Exam Lactate Level 12/07/20 16:55: Lactic Acid Level 0.71 Objective Exam Vital Signs Vital Signs Date Time Temp Pulse Resp B/P (MAP) Pulse Ox O2 Delivery O2 Flow Rate FiO2 12/10/20 03:42 36.1 81 18 141/70 (93) 97 Room Air Capillary Refill : Less Than 3 Seconds General Appearance: No Apparent Distress, WD/WN Respiratory: Lungs Clear Cardiovascular: Regular Rate, Rhythm Neurologic/Psychiatric: Alert, Oriented x3, No Motor/Sensory Deficits, Normal Mood/Affect Results/Procedures Lab Laboratory Tests 12/09/20 05:35 Patient resulted labs reviewed. Assessment/Plan Assessment and Plan Assess & Plan/Chief Complaint Assessment: Right great toe cellulitis DM h/o DKA HTN Plan: Home meds Insulin IV abx Surgery consult Lovenox 12/09/20: IV antibiotics Wound VAC Appreciate Dr. Cuevas Diagnosis/Problems Diagnosis/Problems (1) Wound infection Status: Acute (2) Elevated d-dimer Status: Acute (3) Amputated toe of right foot (4) Diabetes mellitus, type 2 Status: Chronic (5) Hypertension Status: Chronic (6) DVT prophylaxis Status: Acute CHANTELL HAHN DO Dec 09, 2020 05:26
[2020-12-09 05:42] LABS: BASOPHILS % (AUTO) 1 % (0-10); EOSINOPHILS # (AUTO) 0.2 10^3/uL (0.0-0.3); EOSINOPHILS % (AUTO) 2 % (0-10); HEMATOCRIT 28 % (40-54); HEMOGLOBIN 8.9 g/dL (13.3-17.7); LYMPHOCYTES # (AUTO) 2.3 10^3/uL (1.0-4.0); LYMPHOCYTES % (AUTO) 26 % (12-44); MEAN CORPUSCULAR HEMOGLOBIN 26 pg (25-34); MEAN CORPUSCULAR HGB CONC 32 g/dL (32-36); MEAN CORPUSCULAR VOLUME 83 fL (80-99); MEAN PLATELET VOLUME 9.4 fL (9.0-12.2); MONOCYTES # (AUTO) 0.7 10^3/uL (0.0-1.0); MONOCYTES % (AUTO) 8 % (0-12); NEUTROPHILS # (AUTO) 5.4 10^3/uL (1.8-7.8); NEUTROPHILS % (AUTO) 63 % (42-75); PLATELET COUNT 331 10^3/uL (130-400); WHITE BLOOD COUNT 8.6 10^3/uL (4.3-11.0)
[2020-12-09 06:10] LABS: ALBUMIN 2.8 GM/DL (3.2-4.5)
[2020-12-09 06:11] LABS: CHLORIDE 104 MMOL/L (98-107); POTASSIUM 4.3 MMOL/L (3.6-5.0); SODIUM 136 MMOL/L (135-145)
[2020-12-09 06:12] LABS: CALCIUM 8.5 MG/DL (8.5-10.1)
[2020-12-09 06:13] LABS: GLUCOSE 81 MG/DL (70-105)
[2020-12-09 06:14] LABS: CARBON DIOXIDE 24 MMOL/L (21-32)
[2020-12-09 06:15] LABS: BILIRUBIN,TOTAL 0.3 MG/DL (0.1-1.0)
[2020-12-09] MEDS: inSUlin ASPART (NovoLOG) 1 UNIT/0.01 ML (CHARGE PER UNIT) SC SCH ×7 (06:15→20:01)
[2020-12-09 06:16] LABS: ALKALINE PHOSPHATASE 55 U/L (40-136)
[2020-12-09 06:17] LABS: CREATININE SERUM 1.12 MG/DL (0.60-1.30); GFR ESTIMATED > 60
[2020-12-09 06:18] LABS: BUN/CREATININE RATIO 21
[2020-12-09 06:20] LABS: ALANINE AMINOTRANSFERASE 20 U/L (0-55)
[2020-12-09] MEDS ORDERED: TROUGH ORDER-PHARMACY XX NR (07:30)
[2020-12-09] MEDS: SENNA W/DOCUSATE (SENOKOT S) TABLET PO SCH ×2 (09:05→20:31)
[2020-12-09] MEDS: lisINopril 20 MG (PRINIVIL) TABLET PO SCH (09:05)
[2020-12-09] MEDS: meTOprolol TARTRATE 25 MG (LOPRESSOR) TABLET PO SCH ×2 (09:05→20:31)
[2020-12-09] MEDS: VANCOMYCIN 1250 MG/NS 250 ML IVPB IV SCH ×4 (09:32→20:31)
--- NOTE | 2020-12-09 11:22 | Progress Note - Surgery ---
Subjective Time Seen by a Provider: 09:46 Subjective/Events-last exam Pt seen and examined, no complaints. Tolerating diet. Review of Systems Pulmonary: No Dyspnea, No Cough Cardiovascular: No: Chest Pain, Palpitations Gastrointestinal: No: Nausea, Vomiting Focused Exam Lactate Level 12/07/20 16:55: Lactic Acid Level 0.71 Objective Exam Vital Signs Date Time Temp Pulse Resp B/P (MAP) Pulse Ox O2 Delivery O2 Flow Rate FiO2 12/09/20 08:00 35.7 85 18 131/69 (89) 100 Room Air 12/09/20 04:05 36.4 79 16 123/69 (87) 96 Room Air 12/09/20 00:20 36.7 83 16 121/66 (84) 98 Room Air 12/08/20 20:00 37.8 94 22 113/72 (86) 98 Room Air 12/08/20 19:20 Room Air 12/08/20 16:15 37.5 96 18 122/74 (90) 99 Room Air 12/08/20 12:00 36.8 85 18 128/82 (97) 100 Room Air I & O 12/09/20 07:00 Intake Total 4665 ml Output Total 2850 ml Balance 1815 ml Capillary Refill : Less Than 3 Seconds General Appearance: No Apparent Distress, Chronically ill HEENT: PERRL/EOMI, Moist Mucous Membranes Respiratory: Lungs Clear, Normal Breath Sounds, No Accessory Muscle Use, No Respiratory Distress Cardiovascular: Regular Rate, Rhythm, No Murmur Extremity: Pedal Edema, Other (right foot, no necrotic tissue, no foul smell) Results Lab Laboratory Tests 12/08/20 13:52: Glucometer 110 12/08/20 18:55: Glucometer 261H 12/08/20 21:37: Glucometer 165H 12/09/20 05:35: White Blood Count 8.6, Red Blood Count 3.40L, Hemoglobin 8.9L, Hematocrit 28L, Mean Corpuscular Volume 83, Mean Corpuscular Hemoglobin 26, Mean Corpuscular Hemoglobin Concent 32, Red Cell Distribution Width 13.9, Platelet Count 331, Mean Platelet Volume 9.4, Immature Granulocyte % (Auto) 1, Neutrophils (%) (Auto) 63, Lymphocytes (%) (Auto) 26, Monocytes (%) (Auto) 8, Eosinophils (%) (Auto) 2, Basophils (%) (Auto) 1, Neutrophils # (Auto) 5.4, Lymphocytes # (Auto) 2.3, Monocytes # (Auto) 0.7, Eosinophils # (Auto) 0.2, Basophils # (Auto) 0.0, Immature Granulocyte # (Auto) 0.0, Sodium Level 136, Potassium Level 4.3, Chloride Level 104, Carbon Dioxide Level 24, Anion Gap 8, Blood Urea Nitrogen 2 3H, Creatinine 1.12, Estimat Glomerular Filtration Rate > 60, BUN/Creatinine Ratio 21, Glucose Level 81, Calcium Level 8.5, Corrected Calcium 9.5, Total Bilirubin 0.3, Aspartate Amino Transf (AST/SGOT) 21, Alanine Aminotransferase (ALT/SGPT) 20, Alkaline Phosphatase 55, Total Protein 7.0, Albumin 2.8L 12/09/20 08:00: Vancomycin Level Trough 18.3 12/09/20 10:08: Glucometer 105 Microbiology 12/07/20 Blood Culture - Preliminary, Resulted No growth 12/07/20 Urine Culture - Final, Complete YEAST Assessment/Plan Assessment/Plan Assessment/Plan Necrotic, Non healing Wound DM - uncontrolled Peripheral Vascular disease UTI HTN Wound looks good, no more necrotic tissue. Wound care nurse to place VAC. SLIM LOPEZ DO Dec 09, 2020 11:22
--- NOTE | 2020-12-09 15:48 | Physician Query Clarification ---
Physician Query-General Query to Physician: Clinical Validation Clarification : Jessica White Sepsis has been documented in the medical record. After study, do you consider Sepsis a clinically valid diagnosis? If not clinically valid, please document "Sepsis, ruled out" on the progress notes and/or discharge summary. 1. Not agreed, not clinically valid/ruled out 2. Agreed, clinically valid diagnosis 3. Other, with explanation of the clinical findings 4. Clinically undetermined, no explanation for the clinical findings Additional information: Admission VS/Labs HR 98, RR 18, BP 147/80, SpO2 99% sat on room air T 36.9, WBC 14.2, lactic acid 0.71, LR 150 ML/hour since admission , Zosyn IV Please remember a lack of response to the above will prompt a phone page by CDI/coding staff. In responding to this query, please exercise your independent professional judgment. The purpose of this communication is to more accurately reflect the complexity of your patients condition. The fact that a question is asked does not imply that any particular answer is desired or expected. Naomie Jacobsen MSN, RN [phone] [email or web address] PHYSICIAN RESPONSE: Based on the clinical findings in the record, please respond to the query above on this document as an addendum. Physician Response: Physician Response no sepsis If you have questions please contact: Geriatric Social Worker: Ext: Thank you for your time and cooperation. Clinical Civil Division Commander Deputy Sheriff/Geriatric Social Worker This is a permanent part of the medical record NAOMIE JACOBSEN Dec 09, 2020 15:48 CHANTELL WHITE DO Dec 09, 2020 17:54
[2020-12-09] MEDS: HYDROcodone/APAP 5 MG/325 MG (LORTAB) TAB PO PRN (20:31)
[2020-12-09] MEDS: ENOXAPARIN 40 MG/0.4 ML (LOVENOX) SYR SC SCH (20:31)
[2020-12-10] MEDS: PIPERACILLIN/TAZO 4.5 GM/NS 100 ML IV SCH ×6 (01:44→16:17)
[2020-12-10] MEDS: LACTATED RINGERS 1,000 ML IV SCH ×4 (02:00→21:47)
[2020-12-10 03:42] VITALS: BP 141/70
[2020-12-10 05:14] LABS: BASOPHILS % (AUTO) 1 % (0-10); EOSINOPHILS # (AUTO) 0.2 10^3/uL (0.0-0.3); EOSINOPHILS % (AUTO) 3 % (0-10); HEMATOCRIT 30 % (40-54); HEMOGLOBIN 9.4 g/dL (13.3-17.7); LYMPHOCYTES # (AUTO) 2.2 10^3/uL (1.0-4.0); LYMPHOCYTES % (AUTO) 28 % (12-44); MEAN CORPUSCULAR HEMOGLOBIN 26 pg (25-34); MEAN CORPUSCULAR HGB CONC 32 g/dL (32-36); MEAN CORPUSCULAR VOLUME 83 fL (80-99); MEAN PLATELET VOLUME 9.4 fL (9.0-12.2); MONOCYTES # (AUTO) 0.5 10^3/uL (0.0-1.0); MONOCYTES % (AUTO) 6 % (0-12); NEUTROPHILS % (AUTO) 63 % (42-75); PLATELET COUNT 342 10^3/uL (130-400)
[2020-12-10 05:27] LABS: ALBUMIN 2.8 GM/DL (3.2-4.5); CHLORIDE 103 MMOL/L (98-107); POTASSIUM 4.2 MMOL/L (3.6-5.0); SODIUM 138 MMOL/L (135-145)
[2020-12-10 05:29] LABS: CALCIUM 8.6 MG/DL (8.5-10.1)
[2020-12-10 05:30] LABS: GLUCOSE 63 MG/DL (70-105); TOTAL PROTEIN 7.2 GM/DL (6.4-8.2)
[2020-12-10 05:31] LABS: CARBON DIOXIDE 24 MMOL/L (21-32)
[2020-12-10 05:32] LABS: BILIRUBIN,TOTAL 0.3 MG/DL (0.1-1.0)
[2020-12-10 05:33] LABS: ALKALINE PHOSPHATASE 58 U/L (40-136)
[2020-12-10 05:34] LABS: CREATININE SERUM 1.02 MG/DL (0.60-1.30); GFR ESTIMATED > 60
[2020-12-10 05:35] LABS: BUN/CREATININE RATIO 18
[2020-12-10 05:36] LABS: ALANINE AMINOTRANSFERASE 22 U/L (0-55)
[2020-12-10] MEDS: inSUlin ASPART (NovoLOG) 1 UNIT/0.01 ML (CHARGE PER UNIT) SC SCH ×7 (05:38→21:46)
--- NOTE | 2020-12-10 06:35 | Progress Note - Hospitalist ---
Subjective HPI/CC On Admission Date Seen by Provider: Dec 10, 2020 Time Seen by Provider: 11:00 CC: Right foot pain HPI: This is a 50yoWM known to me from prior admission several weeks ago after requiring a right great toe amputation. Now he presents with cellulitis but no evidence of any osteomyelitis. Dr. Villanueva will be consulted. Picc line was placed due to poor IV access and ultrasound was negative so will initiate Lovenox of 40 daily. Home meds have been restarted. Patient denies any more pain since admit. Subjective/Events-last exam Patient doing well IV antibiotics tolerated Reviewed labs Denies concerns Review of Systems General: Fatigue Musculoskeletal: foot pain Focused Exam Lactate Level Objective Exam Vital Signs Vital Signs Date Time Temp Pulse Resp B/P (MAP) Pulse Ox O2 Delivery O2 Flow Rate FiO2 12/11/20 00:00 37.0 87 18 149/75 (99) 97 Room Air Capillary Refill : Less Than 3 Seconds General Appearance: No Apparent Distress, WD/WN, Chronically ill Respiratory: Lungs Clear Cardiovascular: Regular Rate, Rhythm Neurologic/Psychiatric: Alert, Oriented x3, No Motor/Sensory Deficits, Normal Mood/Affect Results/Procedures Lab Patient resulted labs reviewed. Assessment/Plan Assessment and Plan Assess & Plan/Chief Complaint Assessment: Right great toe cellulitis DM h/o DKA HTN Plan: Home meds Insulin IV abx Surgery consult Lovenox 12/09/20: IV antibiotics Wound VAC Appreciate Dr. Cuevas 12/10/2020: IV antibiotics Dr. Cuevas Diagnosis/Problems Diagnosis/Problems (1) Wound infection Status: Acute (2) Elevated d-dimer Status: Acute (3) Amputated toe of right foot (4) Diabetes mellitus, type 2 Status: Chronic (5) Hypertension Status: Chronic (6) DVT prophylaxis Status: Acute CHANTELL HAHN DO Dec 10, 2020 06:35
[2020-12-10 08:00] VITALS: BP 149/78
[2020-12-10] MEDS: SENNA W/DOCUSATE (SENOKOT S) TABLET PO SCH ×2 (08:46→20:31)
[2020-12-10] MEDS: VANCOMYCIN 1250 MG/NS 250 ML IVPB IV SCH ×4 (08:46→20:31)
[2020-12-10] MEDS: lisINopril 20 MG (PRINIVIL) TABLET PO SCH (08:47)
[2020-12-10] MEDS: meTOprolol TARTRATE 25 MG (LOPRESSOR) TABLET PO SCH ×2 (08:47→20:32)
[2020-12-10 12:00] VITALS: BP 128/65
[2020-12-10 15:57] VITALS: BP 127/72
[2020-12-10 19:33] VITALS: BP 139/69
[2020-12-10] MEDS: ENOXAPARIN 40 MG/0.4 ML (LOVENOX) SYR SC SCH (20:31)
[2020-12-11] VITALS: BP 149/75
[2020-12-11] MEDS: PIPERACILLIN/TAZO 4.5 GM/NS 100 ML IV SCH ×6 (01:10→16:15)
[2020-12-11] MEDS: LACTATED RINGERS 1,000 ML IV SCH ×2 (05:15→11:04)
[2020-12-11 06:15] LABS: BASOPHILS # (AUTO) 0.1 10^3/uL (0.0-0.1); BASOPHILS % (AUTO) 1 % (0-10); EOSINOPHILS # (AUTO) 0.3 10^3/uL (0.0-0.3); EOSINOPHILS % (AUTO) 4 % (0-10); HEMATOCRIT 30 % (40-54); HEMOGLOBIN 9.4 g/dL (13.3-17.7); LYMPHOCYTES # (AUTO) 2.1 10^3/uL (1.0-4.0); LYMPHOCYTES % (AUTO) 27 % (12-44); MEAN CORPUSCULAR HEMOGLOBIN 26 pg (25-34); MEAN CORPUSCULAR HGB CONC 32 g/dL (32-36); MEAN CORPUSCULAR VOLUME 82 fL (80-99); MEAN PLATELET VOLUME 9.5 fL (9.0-12.2); MONOCYTES # (AUTO) 0.5 10^3/uL (0.0-1.0); MONOCYTES % (AUTO) 6 % (0-12); NEUTROPHILS # (AUTO) 4.7 10^3/uL (1.8-7.8); NEUTROPHILS % (AUTO) 62 % (42-75); PLATELET COUNT 325 10^3/uL (130-400); WHITE BLOOD COUNT 7.7 10^3/uL (4.3-11.0)
[2020-12-11 06:34] LABS: ALBUMIN 2.9 GM/DL (3.2-4.5); CHLORIDE 103 MMOL/L (98-107); POTASSIUM 4.6 MMOL/L (3.6-5.0); SODIUM 137 MMOL/L (135-145)
[2020-12-11 06:35] LABS: CALCIUM 8.8 MG/DL (8.5-10.1)
[2020-12-11 06:36] LABS: GLUCOSE 100 MG/DL (70-105)
[2020-12-11 06:37] LABS: TOTAL PROTEIN 7.5 GM/DL (6.4-8.2)
[2020-12-11 06:38] LABS: BILIRUBIN,TOTAL 0.2 MG/DL (0.1-1.0); CARBON DIOXIDE 26 MMOL/L (21-32)
[2020-12-11 06:40] LABS: ALKALINE PHOSPHATASE 62 U/L (40-136); CREATININE SERUM 1.02 MG/DL (0.60-1.30); GFR ESTIMATED > 60
[2020-12-11 06:41] LABS: BUN/CREATININE RATIO 15
[2020-12-11 06:43] LABS: ALANINE AMINOTRANSFERASE 21 U/L (0-55)
[2020-12-11] MEDS: inSUlin ASPART (NovoLOG) 1 UNIT/0.01 ML (CHARGE PER UNIT) SC SCH ×7 (06:47→20:21)
[2020-12-11 07:32] VITALS: BP 152/72
--- NOTE | 2020-12-11 07:43 | Progress Note - Hospitalist ---
Subjective HPI/CC On Admission Date Seen by Provider: Dec 11, 2020 Time Seen by Provider: 11:15 CC: Right foot pain HPI: This is a 50yoWM known to me from prior admission several weeks ago after requiring a right great toe amputation. Now he presents with cellulitis but no evidence of any osteomyelitis. Dr. Villanueva will be consulted. Picc line was placed due to poor IV access and ultrasound was negative so will initiate Lovenox of 40 daily. Home meds have been restarted. Patient denies any more pain since admit. Subjective/Events-last exam Patient doing pretty well General surgery managing wound Hep-Lock IV fluid Check meds and labs Blood sugars are labile Review of Systems Musculoskeletal: foot pain Objective Exam Vital Signs Vital Signs Date Time Temp Pulse Resp B/P (MAP) Pulse Ox O2 Delivery O2 Flow Rate FiO2 12/11/20 15:25 36.6 82 18 131/72 (91) 99 Room Air Capillary Refill : Less Than 3 Seconds General Appearance: No Apparent Distress, WD/WN, Chronically ill Respiratory: Lungs Clear Cardiovascular: Regular Rate, Rhythm Neurologic/Psychiatric: Alert, Oriented x3, No Motor/Sensory Deficits, Normal Mood/Affect Results/Procedures Lab Laboratory Tests 12/11/20 06:05 Patient resulted labs reviewed. Assessment/Plan Assessment and Plan Assess & Plan/Chief Complaint Assessment: Right great toe cellulitis DM h/o DKA HTN Plan: Home meds Insulin IV abx Surgery consult Lovenox 12/09/20: IV antibiotics Wound VAC Appreciate Dr. Cuevas 12/10/2020: IV antibiotics Dr. Cuevas 12/11/2020: Insulin management IV antibiotics Diagnosis/Problems Diagnosis/Problems (1) Wound infection Status: Acute (2) Elevated d-dimer Status: Acute (3) Amputated toe of right foot (4) Diabetes mellitus, type 2 Status: Chronic (5) Hypertension Status: Chronic (6) DVT prophylaxis Status: Acute CHANTELL HAHN DO Dec 11, 2020 07:43
[2020-12-11] MEDS: meTOprolol TARTRATE 25 MG (LOPRESSOR) TABLET PO SCH ×2 (09:14→20:29)
[2020-12-11] MEDS: lisINopril 20 MG (PRINIVIL) TABLET PO SCH (09:14)
[2020-12-11] MEDS: VANCOMYCIN 1250 MG/NS 250 ML IVPB IV SCH ×4 (09:17→20:22)
[2020-12-11] MEDS: SENNA W/DOCUSATE (SENOKOT S) TABLET PO SCH ×2 (09:17→20:29)
[2020-12-11 15:25] VITALS: BP 131/72
[2020-12-11] MEDS: ENOXAPARIN 40 MG/0.4 ML (LOVENOX) SYR SC SCH (20:29)
[2020-12-11 23:18] VITALS: BP 125/65
[2020-12-12] MEDS: inSUlin ASPART (NovoLOG) 1 UNIT/0.01 ML (CHARGE PER UNIT) SC SCH ×7 (06:22→20:22)
[2020-12-12 08:00] VITALS: BP 121/67
--- NOTE | 2020-12-12 08:17 | Progress Note - Hospitalist ---
Subjective HPI/CC On Admission Date Seen by Provider: Dec 12, 2020 Time Seen by Provider: 11:30 CC: Right foot pain HPI: This is a 50yoWM known to me from prior admission several weeks ago after requiring a right great toe amputation. Now he presents with cellulitis but no evidence of any osteomyelitis. Dr. Villanueva will be consulted. Picc line was placed due to poor IV access and ultrasound was negative so will initiate Lovenox of 40 daily. Home meds have been restarted. Patient denies any more pain since admit. Subjective/Events-last exam Patient about the same No significant new issues Eating and drinking well Bowels are moving well Review of Systems General: Fatigue, Malaise Objective Exam Vital Signs Vital Signs Date Time Temp Pulse Resp B/P (MAP) Pulse Ox O2 Delivery O2 Flow Rate FiO2 12/12/20 16:07 36.1 82 18 138/74 (95) 99 Room Air Capillary Refill : Less Than 3 Seconds General Appearance: No Apparent Distress, WD/WN, Chronically ill Respiratory: Lungs Clear Cardiovascular: Regular Rate, Rhythm Neurologic/Psychiatric: Alert, Oriented x3, No Motor/Sensory Deficits, Normal Mood/Affect Results/Procedures Lab Laboratory Tests 12/12/20 09:05 Patient resulted labs reviewed. Assessment/Plan Assessment and Plan Assess & Plan/Chief Complaint Assessment: Right great toe cellulitis DM h/o DKA HTN Plan: Home meds Insulin IV abx Surgery consult Lovenox 12/09/20: IV antibiotics Wound VAC Appreciate Dr. Cuevas 12/10/2020: IV antibiotics Dr. Cuevas 12/11/2020: Insulin management IV antibiotics 12/12/2020: IV antibiotics Wound VAC Diagnosis/Problems Diagnosis/Problems (1) Wound infection Status: Acute (2) Elevated d-dimer Status: Acute (3) Amputated toe of right foot (4) Diabetes mellitus, type 2 Status: Chronic (5) Hypertension Status: Chronic (6) DVT prophylaxis Status: Acute CHANTELL HAHN DO Dec 12, 2020 08:17
[2020-12-12] MEDS: lisINopril 20 MG (PRINIVIL) TABLET PO SCH (08:23)
[2020-12-12] MEDS: SENNA W/DOCUSATE (SENOKOT S) TABLET PO SCH ×2 (08:23→20:53)
[2020-12-12] MEDS: meTOprolol TARTRATE 25 MG (LOPRESSOR) TABLET PO SCH ×2 (08:23→20:53)
[2020-12-12 09:14] LABS: BASOPHILS % (AUTO) 0 % (0-10); EOSINOPHILS # (AUTO) 0.2 10^3/uL (0.0-0.3); EOSINOPHILS % (AUTO) 3 % (0-10); HEMATOCRIT 34 % (40-54); HEMOGLOBIN 10.7 g/dL (13.3-17.7); LYMPHOCYTES # (AUTO) 2.2 10^3/uL (1.0-4.0); LYMPHOCYTES % (AUTO) 23 % (12-44); MEAN CORPUSCULAR HEMOGLOBIN 26 pg (25-34); MEAN CORPUSCULAR HGB CONC 32 g/dL (32-36); MEAN CORPUSCULAR VOLUME 83 fL (80-99); MEAN PLATELET VOLUME 9.8 fL (9.0-12.2); MONOCYTES # (AUTO) 0.3 10^3/uL (0.0-1.0); MONOCYTES % (AUTO) 3 % (0-12); NEUTROPHILS # (AUTO) 6.8 10^3/uL (1.8-7.8); NEUTROPHILS % (AUTO) 71 % (42-75); PLATELET COUNT 393 10^3/uL (130-400); WHITE BLOOD COUNT 9.6 10^3/uL (4.3-11.0)
[2020-12-12 09:28] LABS: ALBUMIN 3.3 GM/DL (3.2-4.5); CHLORIDE 101 MMOL/L (98-107); SODIUM 134 MMOL/L (135-145)
[2020-12-12 09:30] LABS: GLUCOSE 201 MG/DL (70-105); TOTAL PROTEIN 8.8 GM/DL (6.4-8.2)
[2020-12-12 09:31] LABS: CARBON DIOXIDE 23 MMOL/L (21-32)
[2020-12-12 09:32] LABS: BILIRUBIN,TOTAL 0.3 MG/DL (0.1-1.0)
[2020-12-12 09:34] LABS: ALKALINE PHOSPHATASE 70 U/L (40-136); CREATININE SERUM 1.19 MG/DL (0.60-1.30); GFR ESTIMATED > 60
[2020-12-12 09:35] LABS: BUN/CREATININE RATIO 16
[2020-12-12 09:37] LABS: ALANINE AMINOTRANSFERASE 23 U/L (0-55)
[2020-12-12 16:07] VITALS: BP 138/74
[2020-12-12] MEDS: ENOXAPARIN 40 MG/0.4 ML (LOVENOX) SYR SC SCH (20:55)
[2020-12-12 23:59] VITALS: BP 130/84
[2020-12-13] MEDS: inSUlin ASPART (NovoLOG) 1 UNIT/0.01 ML (CHARGE PER UNIT) SC SCH ×7 (06:02→21:25)
[2020-12-13 06:08] LABS: BASOPHILS % (AUTO) 1 % (0-10); EOSINOPHILS # (AUTO) 0.3 10^3/uL (0.0-0.3); EOSINOPHILS % (AUTO) 4 % (0-10); HEMATOCRIT 33 % (40-54); HEMOGLOBIN 10.4 g/dL (13.3-17.7); LYMPHOCYTES # (AUTO) 2.5 10^3/uL (1.0-4.0); LYMPHOCYTES % (AUTO) 31 % (12-44); MEAN CORPUSCULAR HEMOGLOBIN 26 pg (25-34); MEAN CORPUSCULAR HGB CONC 32 g/dL (32-36); MEAN CORPUSCULAR VOLUME 83 fL (80-99); MEAN PLATELET VOLUME 9.7 fL (9.0-12.2); MONOCYTES # (AUTO) 0.5 10^3/uL (0.0-1.0); MONOCYTES % (AUTO) 6 % (0-12); NEUTROPHILS # (AUTO) 4.7 10^3/uL (1.8-7.8); NEUTROPHILS % (AUTO) 59 % (42-75); PLATELET COUNT 358 10^3/uL (130-400); WHITE BLOOD COUNT 8.1 10^3/uL (4.3-11.0)
[2020-12-13 06:37] LABS: ALBUMIN 3.2 GM/DL (3.2-4.5)
[2020-12-13 06:38] LABS: CHLORIDE 103 MMOL/L (98-107); POTASSIUM 4.9 MMOL/L (3.6-5.0); SODIUM 135 MMOL/L (135-145)
[2020-12-13 06:39] LABS: CALCIUM 8.9 MG/DL (8.5-10.1)
[2020-12-13 06:40] LABS: GLUCOSE 87 MG/DL (70-105); TOTAL PROTEIN 8.3 GM/DL (6.4-8.2)
[2020-12-13 06:41] LABS: CARBON DIOXIDE 24 MMOL/L (21-32)
[2020-12-13 06:42] LABS: BILIRUBIN,TOTAL 0.2 MG/DL (0.1-1.0)
[2020-12-13 06:43] LABS: ALKALINE PHOSPHATASE 60 U/L (40-136)
[2020-12-13 06:44] LABS: CREATININE SERUM 1.05 MG/DL (0.60-1.30); GFR ESTIMATED > 60
[2020-12-13 06:45] LABS: BUN/CREATININE RATIO 19
[2020-12-13 06:46] LABS: ALANINE AMINOTRANSFERASE 26 U/L (0-55)
[2020-12-13 08:00] VITALS: BP 138/80
[2020-12-13] MEDS: lisINopril 20 MG (PRINIVIL) TABLET PO SCH (08:08)
[2020-12-13] MEDS: meTOprolol TARTRATE 25 MG (LOPRESSOR) TABLET PO SCH ×2 (08:08→21:15)
[2020-12-13] MEDS: SENNA W/DOCUSATE (SENOKOT S) TABLET PO SCH ×2 (08:09→21:15)
--- NOTE | 2020-12-13 15:28 | Progress Note ---
Subjective Subjective/Events-last exam No Concerns today. Patient tolerating PO diet. wound vac with good suction in place. Review of Systems Pulmonary: No Dyspnea, No Cough Cardiovascular: No: Chest Pain, Palpitations Gastrointestinal: No: Nausea, Vomiting, Abdominal Pain Musculoskeletal: foot pain Neurological: Weakness, Incoordination Objective Exam Last Set of Vital Signs Vital Signs Date Time Temp Pulse Resp B/P (MAP) Pulse Ox O2 Delivery O2 Flow Rate FiO2 12/13/20 08:00 Room Air 12/13/20 08:00 35.8 85 18 138/80 (99) 98 Capillary Refill : Less Than 3 Seconds I&O Intake and Output 12/13/20 00:00 Intake Total 3177 ml Output Total 4925 ml Balance -1748 ml Intake Oral 3177 ml Output Urine Total 4925 ml # Bowel Movements 1 General: Alert, Oriented X3, Cooperative, No Acute Distress HEENT: Mucous Memb Moist/[place] Lungs: Clear to Auscultation, Normal Air Movement Heart: Regular Rate, No Murmurs Abdomen: Normal Bowel Sounds, Soft, No Tenderness, No Masses Extremities: Other (h/o left mid foot amputation, Right great toe amputation: wound vac in place with good suction and minimal drainage) Neuro: Normal Speech, Sensation Intact, Cranial Nerves 3-12 NL Results/Procedures Lab Laboratory Tests 12/12/20 19:03: Glucometer 168H 12/13/20 05:48: Glucometer 85 12/13/20 05:50: White Blood Count 8.1, Red Blood Count 4.00L, Hemoglobin 10.4L, Hematocrit 33L, Mean Corpuscular Volume 83, Mean Corpuscular Hemoglobin 26, Mean Corpuscular Hemoglobin Concent 32, Red Cell Distribution Width 14.1, Platelet Count 358, Mean Platelet Volume 9.7, Immature Granulocyte % (Auto) 1, Neutrophils (%) (Auto) 59, Lymphocytes (%) (Auto) 31, Monocytes (%) (Auto) 6, Eosinophils (%) (Auto) 4, Basophils (%) (Auto) 1, Neutrophils # (Auto) 4.7, Lymphocytes # (Auto) 2.5, Monocytes # (Auto) 0.5, Eosinophils # (Auto) 0.3, Basophils # (Auto) 0.0, Immature Granulocyte # (Auto) 0.1, Sodium Level 135, Potassium Level 4.9, Chloride Level 103, Carbon Dioxide Level 24, Anion Gap 8, Blood Urea Nitrogen 2 0H, Creatinine 1.05, Estimat Glomerular Filtration Rate > 60, BUN/Creatinine Ratio 19, Glucose Level 87, Calcium Level 8.9, Corrected Calcium 9.5, Total Bilirubin 0.2, Aspartate Amino Transf (AST/SGOT) 24, Alanine Aminotransferase (ALT/SGPT) 26, Alkaline Phosphatase 60, Total Protein 8.3H, Albumin 3.2 12/13/20 11:09: Glucometer 206H 12/13/20 15:02: Glucometer 75 Microbiology 12/07/20 Blood Culture - Final, Complete No growth 12/07/20 Urine Culture - Final, Complete YEAST Radiology Date of Exam:12/08/20 US VENOUS LOWER EXT RT PROCEDURE: US right lower extremity venous. TECHNIQUE: Multiple real-time grayscale images were obtained over the right lower extremity in various projections. Additional spectral analysis and color Doppler duplex images were also obtained. INDICATION: Sepsis and right foot wound. FINDINGS: There is no evidence of right lower extremity DVT. Right lower extremity deep venous system shows normal compressibility with normal response to augmentation and Valsalva. No fluid collection or mass is detected. IMPRESSION: No evidence of right lower extremity DVT. Dictated by: Dictated on workstation # [id number] Dict: 12/08/20 0937 Trans: 12/08/20 1558 [id number] Interpreted by: JANAE NEFF MD Electronically signed by: JANAE NEFF MD 12/08/20 1558 Assessment/Plan Assessment/Plan (1) Cellulitis of right foot Status: Acute Assessment & Plan: 12/13: Completed PO antibiotics today, Wound vac in place, wound team not available today, will change wound vac in the AM and plan for D/c home tomorrow (2) Wound infection Status: Acute (3) Type 2 diabetes mellitus with peripheral vascular disease Status: Chronic Assessment & Plan: - s/p multiple amputations (4) Type 2 diabetes mellitus with neurologic complication Status: Chronic Qualifiers: Qualified Codes: E11.42 - Type 2 diabetes mellitus with diabetic polyneuropathy; Z79.4 - remote computer terminal operator (current) use of insulin (5) Hypertension Status: Chronic Assessment & Plan: - Continue home meds Qualifiers: Qualified Codes: I10 - Essential (primary) hypertension (6) Elevated d-dimer Status: Acute (7) DVT prophylaxis Status: Acute Assessment & Plan: - FRANCIA Siddiqi MD Dec 13, 2020 15:28
[2020-12-13 16:03] VITALS: BP 134/62
[2020-12-13] MEDS: ENOXAPARIN 40 MG/0.4 ML (LOVENOX) SYR SC SCH (21:15)
[2020-12-13 23:08] VITALS: BP 139/73
[2020-12-14 05:31] LABS: BASOPHILS # (AUTO) 0.1 10^3/uL (0.0-0.1); BASOPHILS % (AUTO) 1 % (0-10); EOSINOPHILS # (AUTO) 0.2 10^3/uL (0.0-0.3); EOSINOPHILS % (AUTO) 3 % (0-10); HEMATOCRIT 33 % (40-54); HEMOGLOBIN 10.4 g/dL (13.3-17.7); LYMPHOCYTES # (AUTO) 2.7 10^3/uL (1.0-4.0); LYMPHOCYTES % (AUTO) 33 % (12-44); MEAN CORPUSCULAR HEMOGLOBIN 26 pg (25-34); MEAN CORPUSCULAR HGB CONC 31 g/dL (32-36); MEAN CORPUSCULAR VOLUME 83 fL (80-99); MEAN PLATELET VOLUME 9.4 fL (9.0-12.2); MONOCYTES # (AUTO) 0.6 10^3/uL (0.0-1.0); MONOCYTES % (AUTO) 7 % (0-12); NEUTROPHILS # (AUTO) 4.6 10^3/uL (1.8-7.8); NEUTROPHILS % (AUTO) 55 % (42-75); PLATELET COUNT 344 10^3/uL (130-400); WHITE BLOOD COUNT 8.4 10^3/uL (4.3-11.0)
[2020-12-14 05:53] LABS: ALANINE AMINOTRANSFERASE 28 U/L (0-55); ALBUMIN 3.1 GM/DL (3.2-4.5); ALKALINE PHOSPHATASE 63 U/L (40-136); BILIRUBIN,TOTAL 0.2 MG/DL (0.1-1.0); BUN/CREATININE RATIO 25; CALCIUM 8.6 MG/DL (8.5-10.1); CARBON DIOXIDE 26 MMOL/L (21-32); CHLORIDE 102 MMOL/L (98-107); CREATININE SERUM 1.03 MG/DL (0.60-1.30); GFR ESTIMATED > 60; GLUCOSE 74 MG/DL (70-105); POTASSIUM 4.7 MMOL/L (3.6-5.0); SODIUM 134 MMOL/L (135-145); TOTAL PROTEIN 7.7 GM/DL (6.4-8.2)
[2020-12-14] MEDS: inSUlin ASPART (NovoLOG) 1 UNIT/0.01 ML (CHARGE PER UNIT) SC SCH ×4 (05:54→13:45)
[2020-12-14 08:00] VITALS: BP 117/70
[2020-12-14] MEDS: lisINopril 20 MG (PRINIVIL) TABLET PO SCH (08:35)
[2020-12-14] MEDS: SENNA W/DOCUSATE (SENOKOT S) TABLET PO SCH (08:35)
[2020-12-14] MEDS: meTOprolol TARTRATE 25 MG (LOPRESSOR) TABLET PO SCH (08:35)
[2020-12-14 12:00] VITALS: BP 117/70
[2020-12-14] MEDS ORDERED: AMOX-358 PO (12:00)
--- NOTE | 2020-12-14 12:01 | Discharge Summary ---
Discharge Summary Reconcile Patient Problems Problems Reviewed?: Yes Instructions for Patient [facility] [employer], Assessment/Instructions Cellulitis Right foot Wound Infection following amputation DM II with PVD DM II with Neurological complications HTN Elevated D-dimer Physician to follow Patient: Heurter Discharge Diet for Home: ADA Diet Hospital Course Date of Admission: Dec 07, 2020 at 18:18 Admission Diagnosis : Family Physician/Provider: Travis Slater MD Date of Discharge: 12/14/20 Discharge Diagnosis: Cellulitis of Right Foot Wound Infection following amputation DM II with PVD DM II with neurological complications HTN Elevated D-dimer Hospital Course: 50 yo M with recent Right great toe amputation that was admitted with wound infection. Patient seen by surgery and wound care during admission. He was started on IV antibiotics and had wound vac placed on wound now with minimal drainage. Will resume home health orders and patient has home wound vac that will be placed today. Labs and Pending Lab Test: Laboratory Tests 12/13/20 15:02: Glucometer 75 12/13/20 20:11: Glucometer 331H 12/14/20 05:19: White Blood Count 8.4, Red Blood Count 4.03L, Hemoglobin 10.4L, Hematocrit 33L, Mean Corpuscular Volume 83, Mean Corpuscular Hemoglobin 26, Mean Corpuscular Hemoglobin Concent 31L, Red Cell Distribution Width 14.1, Platelet Count 344, Mean Platelet Volume 9.4, Immature Granulocyte % (Auto) 2, Neutrophils (%) (Auto) 55, Lymphocytes (%) (Auto) 33, Monocytes (%) (Auto) 7, Eosinophils (%) (Auto) 3, Basophils (%) (Auto) 1, Neutrophils # (Auto) 4.6, Lymphocytes # (Auto) 2.7, Monocytes # (Auto) 0.6, Eosinophils # (Auto) 0.2, Basophils # (Auto) 0.1, Immature Granulocyte # (Auto) 0.2H, Sodium Level 134L, Potassium Level 4.7, Ch [place] Level 102, Carbon Dioxide Level 26, Anion Gap 6, Blood Urea Nitrogen 26H, Creatinine 1.03, Estimat Glomerular Filtration Rate > 60, BUN/Creatinine Ratio 25, Glucose Level 74, Calcium Level 8.6, Corrected Calcium 9.3, Total Bilirubin 0.2, Aspartate Amino Transf (AST/SGOT) 23, Alanine Aminotransferase (ALT/SGPT) 28, Alkaline Phosphatase 63, Total Protein 7.7, Albumin 3.1L 12/14/20 10:19: Glucometer 167H Microbiology 12/07/20 Blood Culture - Final, Complete No growth 12/07/20 Urine Culture - Final, Complete YEAST Home Meds Active Reported Metoprolol Tartrate 25 Mg Tablet 25 Mg PO BID Levemir Flextouch (Insulin Detemir) 100 Unit/1 Ml Insuln.pen 20 Unit SQ BID Novolog Flexpen (Insulin Aspart) 300 Units/3 Ml Solution 10 Units SQ AC Atorvastatin Calcium 40 Mg Tablet 40 Mg PO HS Lisinopril 20 Mg Tablet 20 Mg PO DAILY Consulations Dr Marshall: General Surgery Wound Care Patient Allergies: Coded Allergies: No Known Drug Allergies (Unverified , 10/29/20) New Medications: Amoxicillin/Potassium Clav (Augmentin 875-125 Tablet) 1 Each Tablet 1 EACH PO BID, #20 TAB Continued Medications: Atorvastatin Calcium (Atorvastatin Calcium) 40 Mg Tablet 40 MG PO HS, TAB Insulin Aspart (Novolog Flexpen) 300 Units/3 Ml Solution 10 UNITS SQ AC, EA Insulin Detemir (Levemir Flextouch) 100 Unit/1 Ml Insuln.pen 20 UNIT SQ BID, EA Lisinopril (Lisinopril) 20 Mg Tablet 20 MG PO DAILY, TAB Metoprolol Tartrate (Metoprolol Tartrate) 25 Mg Tablet 25 MG PO BID, TAB Home Health Need/Face to Face Date of Face to Face: Dec 14, 2020 Clinical Findings: Unsteady gait, Wound infection, Non-healing wound I have seen Pt [id number]: Yes Discharged To: Home Diagnosis/Conditions: See Above Patient is Homebound due to: Muscle weakness, Non-weight bearing Homebound Status Due to the above stated illness, injury or surgical procedure (medical con dition or diagnosis) and associated clinical findings, the patient is homebound because of his/her inability to leave home except with aid of a supportive device and/or person AND leaving the home requires a considerable and taxing effort or is medically contraindicated. Pt req the following assistanc: Wheelchair Home Health Nursing Orders Home Health Services Order: Nursing Services, Wound Care-Eval/Treat Please resume Sunday and wound vac custodial Health Infusion Therapy Line Start Date: Dec 08, 2020 Certify Stmt I certify that this patient is under my care and that I, a nurse practitioner or a physician; a obstetric assistant working with me, had a face to face encounter that - meets the physician face to face encounter requirements with this patient as dated. Discharge Physical Exam General: Alert, Oriented X3, Cooperative, No Acute Distress HEENT: Mucous Memb Moist/[place] Lungs: Clear to Auscultation, Normal Air Movement Heart: Regular Rate, No Murmurs Abdomen: Normal Bowel Sounds, Soft, No Tenderness, No Masses Extremities: No Edema, No Tenderness/Swelling, Other (Wound vac present on right foot with good suction) Neuro: Strength at 5/5 X4 Ext, Cranial Nerves 3-12 NL Psych/Mental Status: Mental Status NL, Mood NL FRANCIA DUVAL MD Dec 14, 2020 11:57
--- NOTE | 2020-12-15 09:29 | Physician Query Clarification ---
PQ-Debridement Admission/Discharge Admission Date: Dec 07, 2020 at 18:18 Discharge Date: Dec 14, 2020 at 14:52 Dr. Cuevas, PHYSICIAN RESPONSE Operative report/procedure note reflects the following description: [Procedure: Pt was in his bed, using sharp debridement with scissors; all of the necrotic tissue was removed. The necrotic tissue was towards the plantar aspect of the foot. An area of about 2cm long by 1cm wide and went down about 1.5cm. Necrotic tissue was cut away down to fresh bleeding tissue.] QUESTION: Please clarify the depth of the debridement. Please clarify if the debridement was excisional or non-excisional. 1. Level: Subcutaneous tissue 2. Type of debridement: Excisional PQ Debridement : Level: Subcutaneous Tissue Type: Excisional Please remember a lack of response to the above will prompt a phone page by [facility] staff. In responding to this query, please exercise your independent professional judgment. The purpose of this communication is to more accurately reflect the complexity of your patients condition. The fact that a question is asked does not imply that any particular answer is desired or expected. Thank you for your timely response to this clarification. Requestors name: Cornelia THIS PHYSICIAN QUERY FORM IS A PERMANENT PART OF THE MEDICAL RECORD CORNELIA CALDERON Dec 15, 2020 09:29 SLIM CUEVAS DO Dec 16, 2020 16:41
== END 2020-12-14 14:52 | disposition home health service (06) | DRG 464 ==
LOC: EDUNIT# 15:02 → ER 15:04 → 4TH 18:18
PROVIDERS: ADMIT Internal Medicine; ATTEND Family Medicine
PROC: 0JBQ0ZZ Excision of Right Foot Subcutaneous Tissue and Fascia, Open Approach (ICD-10-PCS; principal; 2020-12-08)
DX: T87.43 Infection of amputation stump, right lower extremity (principal); I96 Gangrene, not elsewhere classified; L03.115 Cellulitis of right lower limb; N39.0 Urinary tract infection, site not specified; E11.52 Type 2 diabetes mellitus with diabetic peripheral angiopathy with gangrene; T87.53 Necrosis of amputation stump, right lower extremity; Z20.822 Contact with and (suspected) exposure to COVID-19; E11.40 Type 2 diabetes mellitus with diabetic neuropathy, unspecified; E11.65 Type 2 diabetes mellitus with hyperglycemia; Z79.4 Long term (current) use of insulin; I10 Essential (primary) hypertension; E78.5 Hyperlipidemia, unspecified; H54.7 Unspecified visual loss; Z83.3 Family history of diabetes mellitus
CPT/HCPCS: 36415; 36569; 71045; 73630; 76937; 80053; 80202; 81000; 82947; 83605; 85007; 85025; 85027; 85379; 85610; 85730; 86141; 87040; 87088; 87636; 96372; 96374

== ENCOUNTER → 2020-12-17 | Outpatient (CLI) | payer MEDICARE, MEDICAID ==
[~2020-12-17] MED LIST changes: +AMOX-358 PO; +ATOR40TA70 PO
== END ==
LOC: WOUNDCARE 12:52
PROVIDERS: ATTEND Orthopaedic Surgery Hand Surgery
DX: E11.621 Type 2 diabetes mellitus with foot ulcer (principal); E11.65 Type 2 diabetes mellitus with hyperglycemia; L97.516 Non-pressure chronic ulcer of other part of right foot with bone involvement without evidence of necrosis
CPT/HCPCS: 11042; 97605; A6234; G0463

== ENCOUNTER → 2020-12-22 | Outpatient (CLI) | payer MEDICARE, MEDICAID | LOC: WOUNDCARE 15:05 | PROVIDERS: ATTEND Surgery | DX: I96 Gangrene, not elsewhere classified (principal); L97.516 Non-pressure chronic ulcer of other part of right foot with bone involvement without evidence of necrosis; E11.621 Type 2 diabetes mellitus with foot ulcer; E11.42 Type 2 diabetes mellitus with diabetic polyneuropathy; E11.65 Type 2 diabetes mellitus with hyperglycemia | CPT/HCPCS: 97605; A6234; G0463 ==

== ENCOUNTER → 2020-12-29 | Outpatient (CLI) | payer MEDICARE, MEDICAID | LOC: WOUNDCARE 15:19 | PROVIDERS: ATTEND Surgery | DX: L97.516 Non-pressure chronic ulcer of other part of right foot with bone involvement without evidence of necrosis (principal); E11.621 Type 2 diabetes mellitus with foot ulcer; E11.42 Type 2 diabetes mellitus with diabetic polyneuropathy; E11.65 Type 2 diabetes mellitus with hyperglycemia; E11.52 Type 2 diabetes mellitus with diabetic peripheral angiopathy with gangrene | CPT/HCPCS: 97605; G0463 ==

== ENCOUNTER → 2021-01-12 | Outpatient (CLI) | payer MEDICARE, MEDICAID | LOC: WOUNDCARE 15:14 | PROVIDERS: ATTEND Surgery | DX: L97.516 Non-pressure chronic ulcer of other part of right foot with bone involvement without evidence of necrosis (principal); I96 Gangrene, not elsewhere classified; E11.621 Type 2 diabetes mellitus with foot ulcer; E11.42 Type 2 diabetes mellitus with diabetic polyneuropathy; E11.65 Type 2 diabetes mellitus with hyperglycemia | CPT/HCPCS: 97605; G0463 ==

== ENCOUNTER → 2021-01-19 | Outpatient (CLI) | payer MEDICARE, MEDICAID | LOC: WOUNDCARE 15:16 | PROVIDERS: ATTEND Surgery | DX: L97.516 Non-pressure chronic ulcer of other part of right foot with bone involvement without evidence of necrosis (principal); E11.42 Type 2 diabetes mellitus with diabetic polyneuropathy; E11.621 Type 2 diabetes mellitus with foot ulcer; E11.65 Type 2 diabetes mellitus with hyperglycemia; E11.52 Type 2 diabetes mellitus with diabetic peripheral angiopathy with gangrene | CPT/HCPCS: 97605; G0463 ==

== ENCOUNTER → 2021-01-26 | Outpatient (CLI) | payer MEDICARE, MEDICAID | LOC: WOUNDCARE 15:13 | PROVIDERS: ATTEND Surgery | DX: I96 Gangrene, not elsewhere classified (principal); L97.516 Non-pressure chronic ulcer of other part of right foot with bone involvement without evidence of necrosis; E11.621 Type 2 diabetes mellitus with foot ulcer; E11.42 Type 2 diabetes mellitus with diabetic polyneuropathy; E11.65 Type 2 diabetes mellitus with hyperglycemia | CPT/HCPCS: 11042; 87070; 87205; 97605; G0463 ==

== ENCOUNTER → 2021-02-02 | Outpatient (CLI) | payer MEDICARE, MEDICAID | LOC: WOUNDCARE 15:04 | PROVIDERS: ATTEND Surgery | DX: I96 Gangrene, not elsewhere classified (principal); L97.516 Non-pressure chronic ulcer of other part of right foot with bone involvement without evidence of necrosis; E11.621 Type 2 diabetes mellitus with foot ulcer; E11.42 Type 2 diabetes mellitus with diabetic polyneuropathy; E11.65 Type 2 diabetes mellitus with hyperglycemia | CPT/HCPCS: 97605; A6234; G0463 ==

== ENCOUNTER → 2021-02-09 | Outpatient (CLI) | payer MEDICARE, MEDICAID | LOC: WOUNDCARE 14:59 | PROVIDERS: ATTEND Surgery | DX: I96 Gangrene, not elsewhere classified (principal); L97.512 Non-pressure chronic ulcer of other part of right foot with fat layer exposed; E11.621 Type 2 diabetes mellitus with foot ulcer; E11.42 Type 2 diabetes mellitus with diabetic polyneuropathy; E11.65 Type 2 diabetes mellitus with hyperglycemia | CPT/HCPCS: 97605; G0463 ==

== ENCOUNTER → 2021-02-16 | Outpatient (CLI) | payer MEDICARE, MEDICAID | LOC: WOUNDCARE 15:22 | PROVIDERS: ATTEND Surgery | DX: I96 Gangrene, not elsewhere classified (principal); L97.512 Non-pressure chronic ulcer of other part of right foot with fat layer exposed; E11.621 Type 2 diabetes mellitus with foot ulcer; E11.42 Type 2 diabetes mellitus with diabetic polyneuropathy; E11.65 Type 2 diabetes mellitus with hyperglycemia; M86.471 Chronic osteomyelitis with draining sinus, right ankle and foot | CPT/HCPCS: 97605; G0463 ==

== ENCOUNTER → 2021-02-22 | Outpatient (CLI) | payer MEDICARE, MEDICAID | LOC: LABNPT 06:48 | PROVIDERS: ATTEND Podiatrist | DX: Z01.812 Encounter for preprocedural laboratory examination (principal); Z20.822 Contact with and (suspected) exposure to COVID-19 | CPT/HCPCS: 87635 ==

== ENCOUNTER 2021-10-01 18:54 | Emergency (ER) | payer MEDICAID, MEDICARE ==
[~2021-10-01] VITALS: Ht 182.8 cm; Wt 108.8 kg
[2021-10-01] MEDS ORDERED: VANCOMYCIN INJECTION 2,000 MG in NS IV 500 ML 500 ML IV ONE (19:00)
[2021-10-01] MEDS ORDERED: CEFEPIME INJECTION 1,000 MG in NS (IVPB) 50 ML IV ONE (19:00)
[2021-10-01] MEDS ORDERED: NS IV 1000 ML 1,000 ML IV SCH ×3 (19:00→20:00)
--- NOTE | 2021-10-01 19:13 | ED General ---
General Chief Complaint: Glucose Problems Stated Complaint: HYPOGLYCEMIA Nursing Triage Note: PT TO ROOM BY [facility]. EMS STATES PT HAS HAD N/V FOR A "COUPLE OF DAYS." PT IS TYPE ONE DIABETIC. EMS REPORTS LOW BLOOD SUGAR EN ROUTE. PT VOMITED ORAL GLUCOSE AND UNABLE TO OBTAIN IV ACCESS EN ROUTE. PT WAS REPORTEDLY GIVEN PHENERGAN IM BY EMS. PT A&OX4 ON ARRIVAL Source of Information: Patient Exam Limitations: No Limitations History of Present Illness Date Seen by Provider: Oct 01, 2021 Time Seen by Provider: 18:55 Initial Comments Patient to the ER by EMS from home with chief complaint of couple days of nausea and vomiting not feeling well. EMS noted low blood sugar of 37. Unable to get an IV access so I gave him some IM Phenergan and oral glucose as he was still alert and talking. He is a type I diabetic but denies prior history of DKA. No fevers. No known sick contacts. He did receive 3 doses of COVID-19 vaccination as well as influenza vaccine. He has multiple histories of wounds on his feet status post wound care and surgery. He has a forefoot left sided amputation. He says his epigastric region hurts. He took some Pepto-Bismol earlier with no relief. Patient has been experiencing urinary frequency but no diarrhea or constipation. No dysuria. Allergies and Home Medications Allergies Coded Allergies: No Known Drug Allergies (Unverified , 10/29/20) Patient Home Medication List Home Medication List Reviewed: Yes Amoxicillin/Potassium Clav (Augmentin 875-125 Tablet) 1 Each Tablet, 1 EACH PO BID Prescribed by: FRANCIA DUVAL on 12/14/20 1200 Atorvastatin Calcium (Atorvastatin Calcium) 40 Mg Tablet, 40 MG PO HS, (Reported) Entered as Reported by: MARGOT KENNEDY on 12/08/20 1407 Insulin Aspart (Novolog Flexpen) 300 Units/3 Ml Solution, 10 UNITS SQ AC, (Reported) Entered as Reported by: MARGOT KENNEDY on 12/08/20 140 Insulin Detemir (Levemir Flextouch) 100 Unit/1 Ml Insuln.pen, 20 UNIT SQ BID, (Reported) Entered as Reported by: MARGOT KENNEDY on 12/08/20 1407 Lisinopril (Lisinopril) 20 Mg Tablet, 20 MG PO DAILY, (Reported) Entered as Reported by: MARGOT KENNEDY on 12/08/201406 Metoprolol Tartrate (Metoprolol Tartrate) 25 Mg Tablet, 25 MG PO BID, (Reported) Entered as Reported by: MARGOT KENNEDY on 12/08/201406 Review of Systems Review of Systems Constitutional: No chills, No fever, No malaise; weakness EENTM: No ear discharge, No ear pain Respiratory: No cough; short of breath (2 small) Cardiovascular: No chest pain, No palpitations Gastrointestinal: No abdominal pain, No constipation, No diarrhea; nausea, vomiting Genitourinary: No decreased output, No discharge, No dysuria; frequency Musculoskeletal: No back pain, No joint pain All Other Systems Reviewed Negative Unless Noted: Yes Past Jdvvoac-Xidjtm-Vrjswe Hx Patient Social History Tobacco Use?: No Substance use?: No Alcohol Use?: No Immunizations Up To Date Influenza Vaccine Up-to-Date: Yes; Up-to-Date Past Medical History Surgeries: Yes (L FOOT AMPUTATION. Cervical spine surgery.) Amputation, Appendectomy, Gallbladder, Orthopedic Respiratory: No Cardiac: No Neurological: Yes Neuropathy Genitourinary: No Gastrointestinal: No Musculoskeletal: Yes Amputee, Fractures Endocrine: Yes Diabetes, Insulin dep HEENT: No Loss of Vision: Bilateral Hearing Impairment: Denies Cancer: No Psychosocial: No Integumentary: No Blood Disorders: No Adverse Reaction/Blood Tranf: No Family Medical History Cancer, Diabetes, Lung Disease NC Physical Exam Vital Signs Vital Signs - First Documented 10/01/21 10/01/21 18:55 21:25 Temp 36.3 Pulse 133 Resp 14 B/P (MAP) 144/116 (125) Pulse Ox 100 O2 Delivery Room Air Capillary Refill : Height, Weight, BMI Height: '" Weight: lbs. oz. kg; 32.00 BMI Method: General Appearance: Moderate Distress Eyes: Bilateral Eye Normal Inspection, Bilateral Eye PERRL, Bilateral Eye EOMI HEENT: PERRL/EOMI; No Pharynx Normal, No Moist Mucous Membranes Neck: Full Range of Motion, Non Tender Respiratory: Lungs Clear, Normal Breath Sounds, Respiratory Distress (2 small bleeding 25 to 30 breaths/min) Cardiovascular: Regular Rate, Rhythm, No JVD, Tachycardia (130) Gastrointestinal: Normal Bowel Sounds, No Organomegaly Extremity: Normal Capillary Refill, Normal Inspection, No Pedal Edema Neurologic/Psychiatric: Alert, Oriented x3 Focused Exam Sepsis Stage: Severe Sepsis Possible Source: Genitouriary Lactate Level 10/01/21 19:14: Lactic Acid Level 3.87*H 10/01/21 21:16: Time of Focused Exam: 21:33 Respiratory: Lungs Clear, Normal Breath Sounds, No Respiratory Distress Cardiovascular: Regular Rate, Rhythm, No Edema, Normal Peripheral Pulses Capillary Refill: Greater Than 3 Seconds Peripheral Pulses: 2+ Radial Pulses (R), 2+ Radial Pulses (L) Skin: cool, other (clammy extremities) Lactic Acid Level Laboratory Tests Test 10/01/21 19:14 10/01/21 21:16 Lactic Acid Level 3.87 MMOL/L (0.50-2.00) *H Within 3hrs of presentation: Admin fluids, Admin ABX, Blood cultures prior to ABX's, Focus exam, Lactate level Procedures/Interventions Lumen: triple Central Line Procedure: betadine prep (Chlorhexidine prep), sterile drapes ap plied, sterile dressing applied Position: internal jugular (R) Anesthesia: Lidocaine Volume Anesthetic (ccs): 3 Complications: none Post Position: sutured, good blood return, position confirmed w/ CXR Risks, benefits and alternatives were discussed with the patient and the patient consented to the procedure. The indication was absolute paucity of peripheral IV sites and a 24-gauge left EJ is the only access we had available to the patient and acute kidney failure and diabetic ketoacidosis with significant electrolyte derangements. The patient was positioned in the usual format and using the usual sterile garments and drapes the patient was dressed out. The skin was thoroughly cleaned with the supplied chlorhexidine prep. After the prep had dried a sterile drape was placed. The 20 cm 7 [place] triple-lumen catheter was flushed with sterile saline. We used ultrasound guidance to pass the introducer needle into the right internal jugular without difficulty. A guidewire was placed easily without difficulty. Only 1 brief 1 second episode of ectopy was seen on the monitor. The supplied 11 blade scalpel was used to make a 2 mm incision at the inferior portion of the introducer needle. The introducer needle was replaced with the dilator. The dilator was taken out and the patient had the central lumen of the triple lumen catheter threaded over the guidewire and placed at 14.5 cm. The guidewire was removed and the triple-lumen catheter was stitched in place using the supplied braided stitch at 2 different points. The catheter withdrew blood and flushed easily. A sterile dressing was placed over the catheter. The patient tolerated the procedure well. A chest x-ra y was obtained that demonstrated no pneumothorax and a new interval central catheter over the shadow of the right internal jugular down the superior vena cava and terminating just proximal to the right atria. Progress/Results/Core Measures Suspected Sepsis SIRS Temperature: Pulse: 133 Respiratory Rate: 14 Laboratory Tests 10/01/21 19:14: White Blood Count 22.2H Blood Pressure 144 /116 Mean: 125 10/01/21 19:14: Lactic Acid Level 3.87*H 10/01/21 21:16: Laboratory Tests 10/01/21 19:14: Creatinine 8.91H, INR Comment 1.1, Platelet Count 820H, Total Bilirubin 0.4 Results/Orders Lab Results Laboratory Tests Test 10/01/21 19:01 10/01/21 19:14 10/01/21 19:15 10/01/21 19:22 Range/Units Glucometer 337 H 394 H 70-110 MG/DL White Blood Count 22.2 H 4.3-11.0 10^3/uL Red Blood Count 5.67 H 4.30-5.52 10^6/uL Hemoglobin 13.5 13.3-17.7 g/dL Hematocrit 42 40-54 % Mean Corpuscular Volume 73 L 80-99 fL Mean Corpuscular Hemoglobin 24 L 25-34 pg Mean Corpuscular Hemoglobin Concent 33 32-36 g/dL Red Cell Distribution Width 14.0 10.0-14.5 % Platelet Count 820 H 130-400 10^3/uL Mean Platelet Volume 9.7 9.0-12.2 fL Immature Granulocyte % (Auto) 1 % Neutrophils (%) (Auto) 94 H 42-75 % Lymphocytes (%) (Auto) 3 L 12-44 % Monocytes (%) (Auto) 2 0-12 % Eosinophils (%) (Auto) 0 0-10 % Basophils (%) (Auto) 0 0-10 % Neutrophils # (Auto) 20.9 H 1.8-7.8 10^3/uL Lymphocytes # (Auto) 0.6 L 1.0-4.0 10^3/uL Monocytes # (Auto) 0.4 0.0-1.0 10^3/uL Eosinophils # (Auto) 0.0 0.0-0.3 10^3/uL Basophils # (Auto) 0.0 0.0-0.1 10^3/uL Immature Granulocyte # (Auto) 0.3 H 0.0-0.1 10^3/uL Neutrophils % (Manual) 92 % Lymphocytes % (Manual) 3 % Monocytes % (Manual) 3 % Band Neutrophils 2 % Blood Morphology Comment NORMAL Prothrombin Time 14.6 12.2-14.7 SEC INR Comment 1.1 0.8-1.4 Activated Partial Thromboplast Time 32 24-35 SEC Sodium Level 122 *L 135-145 MMOL/L Potassium Level 6.9 #*H 3.6-5.0 MMOL/L Chloride Level 85 L 98-107 MMOL/L Carbon Dioxide Level 10 L 21-32 MMOL/L Anion Gap 27 H 5-14 MMOL/L Blood Urea Nitrogen 171 *H 7-18 MG/DL Creatinine 8.91 H 0.60-1.30 MG/DL Estimat Glomerular Filtration Rate 7 BUN/Creatinine Ratio 19 Glucose Level 438 *H 70-105 MG/DL Lactic Acid Level 3.87 *H 0.50-2.00 MMOL/L Calcium Level 10.8 H 8.5-10.1 MG/DL Corrected Calcium 10.9 H 8.5-10.1 MG/DL Magnesium Level 2.5 H 1.6-2.4 MG/DL Total Bilirubin 0.4 0.1-1.0 MG/DL Aspartate Amino Transf (AST/SGOT) 16 5-34 U/L Alanine Aminotransferase (ALT/SGPT) 30 0-55 U/L Alkaline Phosphatase 97 40-136 U/L Troponin I < 0.028 <0.028 NG/ML C-Reactive Protein High Sensitivity 6.83 H 0.00-0.50 MG/DL Total Protein 10.5 H 6.4-8.2 GM/DL Albumin 3.9 3.2-4.5 GM/DL Lipase 21 8-78 U/L Influenza Type A (RT-PCR) Not Detected Not Detecte Influenza Type B (RT-PCR) Not Detected Not Detecte SARS-CoV-2 RNA (RT-PCR) Not Detected Not Detecte Test 10/01/21 21:00 10/01/21 21:16 Range/Units Urine Color YELLOW Urine Clarity TURBID Urine pH 6.0 5-9 Urine Specific Stollings 1.020 1.016-1.022 Urine Protein 2+ H NEGATIVE Urine Glucose (UA) 1+ H NEGATIVE Urine Ketones TRACE H NEGATIVE Urine Nitrite NEGATIVE NEGATIVE Urine Bilirubin NEGATIVE NEGATIVE Urine Urobilinogen 0.2 < = 1.0 MG/DL Urine Leukocyte Esterase 3+ H NEGATIVE Urine RBC (Auto) 3+ H NEGATIVE Urine RBC TNTC H /HPF Urine WBC 5-10 H /HPF Urine Squamous Epithelial Cells NONE /HPF Urine Crystals NONE /LPF Urine Bacteria MODERATE H /HPF Urine Casts NONE /LPF Urine Mucus NEGATIVE /LPF Urine Culture Indicated CULTURE PENDING Urine Opiates Screen NEGATIVE NEGATIVE Urine Oxycodone Screen NEGATIVE NEGATIVE Urine Methadone Screen NEGATIVE NEGATIVE Urine Propoxyphene Screen NEGATIVE NEGATIVE Urine Barbiturates Screen NEGATIVE NEGATIVE Ur Tricyclic Antidepressants Screen NEGATIVE NEGATIVE Urine Phencyclidine Screen NEGATIVE NEGATIVE Urine Amphetamines Screen NEGATIVE NEGATIVE Urine Methamphetamines Screen NEGATIVE NEGATIVE Urine Benzodiazepines Screen NEGATIVE NEGATIVE Urine Cocaine Screen NEGATIVE NEGATIVE Urine Cannabinoids Screen NEGATIVE NEGATIVE My Orders Orders - LENCHO,SUMMER Duarte Cbc With Automated Diff (10/01/21 19:00) Comprehensive Metabolic Panel (10/01/21 19:00) Blood Culture (10/01/21 19:00) Sputum Culture (10/01/21 19:00) Urinalysis (10/01/21 19:00) Urine Culture (10/01/21 19:00) Protime With Inr (10/01/21 19:00) Partial Thromboplastin Time (10/01/21 19:00) Chest 1 View, Ap/Pa Only (10/01/21 19:00) Ed Iv/Invasive Line Start (10/01/21 19:00) Ed Iv/Invasive Line Start (10/01/21 19:00) Ekg Tracing (10/01/21 19:00) Troponin I [place] (10/01/21 19:00) Vital Signs Adult Sepsis Patie Q15M (10/01/21 19:00) O2 (10/01/21 19:00) Remove Rings In Anticipation O (10/01/21 19:00) Lactic Acid Analyzer (10/01/21 19:00) Influenza A And B By Pcr (10/01/21 19:00) Ns Iv 1000 Ml (Sodium Chloride 0.9%) (10/01/21 19:00) Cefepime Injection (Maxipime Injection) (10/01/21 19:00) Vancomycin Injection (Vancomycin Injecti (10/01/21 19:00) Covid 19 Inhouse Test (10/01/21 19:00) Accucheck Stat ONCE (10/01/21 19:10) Hs C Reactive Protein (10/01/21 19:13) Lipase (10/01/21 19:13) Pantoprazole Injection (Protonix Injecti (10/01/21 19:15) Ondansetron Injection (Zofran Injectio (10/01/21 19:15) Accucheck Stat ONCE (10/01/21 19:16) Insulin (Regular) Human (Novolin R (Per (10/01/21 19:16) Drug Screen Stat (Urine) (10/01/21 19:16) Magnesium (10/01/21 19:16) Ed Iv/Invasive Line Start (10/01/21 19:22) Ns Iv 1000 Ml (Sodium Chloride 0.9%) (10/01/21 19:30) Manual Differential (10/01/21 19:14) Ed Iv/Invasive Line Start (10/01/21 19:51) Ns Iv 1000 Ml (Sodium Chloride 0.9%) (10/01/21 20:00) Metoclopramide Injection (Reglan Injecti (10/01/21 20:05) Ondansetron Injection (Zofran Injectio (10/01/21 20:05) Chest 1 View, Ap/Pa Only (10/01/21 20:28) Albuterol Pre-Mix Nebs (Rt) (Proventil (10/01/21 20:28) Svn Small Volume Nebulizer (10/01/21 20:28) Catheter(Urinary) Insert & Ass 03,15 (10/01/21 20:33) Calcium Gluconate 10% Inj (Calcium Glu (10/01/21 20:45) Calc Gluc 1 Gm/100 Ml Ivpb (Calcium Gluc (10/01/21 20:37) Medications Given in ED Current Medications Medications Dose Ordered Sig/Zhao Route Start Time Stop Time Status Last Admin Dose Admin Calcium Gluconate 4.65 meq ONCE ONCE IV 10/01/21 20:45 10/01/21 20:46 DC 10/01/21 20:50 4.65 MEQ Cefepime HCl 1000 mg/Sodium Chloride 50 ml @ 100 mls/hr ONCE ONCE IV 10/01/21 19:00 10/01/21 19:29 DC 10/01/21 20:31 100 MLS/HR Metoclopramide HCl 10 mg STK-MED ONCE .ROUTE 10/01/21 20:05 10/01/21 20:07 DC 10/01/21 20:13 5 MG Ondansetron HCl 4 mg STK-MED ONCE .ROUTE 10/01/21 20:05 10/01/21 20:10 DC 10/01/21 20:13 8 MG Ondansetron HCl 8 mg ONCE ONCE IVP 10/01/21 19:15 10/01/21 19:16 DC 10/01/21 19:27 8 MG Pantoprazole 40 mg ONCE ONCE IV 10/01/21 19:15 10/01/21 19:16 DC 10/01/21 19:27 40 MG Vancomycin HCl 2000 mg/Sodium Chloride 500 ml @ 260 mls/hr 1900 ONCE IV 10/01/21 19:00 10/01/21 20:55 DC 10/01/21 21:14 260 MLS/HR Vital Signs/I&O 10/01/21 10/01/21 18:55 21:25 Temp 36.3 Pulse 133 Resp 14 B/P (MAP) 144/116 (125) Pulse Ox 100 99 O2 Delivery Room Air Capillary Refill : Blood Pressure Mean: 125 Progress Note : Time: 19:21 Progress Note The patient appears to be in DKA. His initial fingerstick blood glucose was 370s and blood from his IV was 394. I do not think he is on hypoglycemia rather likely he is in DKA/HHS. We will give him 4 units of regular insulin IV and check some labs. Septic work-up, Covid, flu, urinalysis and drug screen. 2 L of fluid to start. ECG Initial ECG Impression Date: Oct 01, 2021 Initial ECG Impression Time: 19:15 Initial ECG Rate: 129 Initial ECG Rhythm: S.Tach Initial ECG Intervals: Normal Initial ECG Impression: Normal Initial ECG Comparisson: Unchanged Comment Sinus tachycardia. No clinically relevant ST changes. Diagnostic Imaging Diagonstic Imaging: Xray Plain Films/CT/US/NM/MRI: chest Comments [facility] [place] [place] NAME: [facility] REC#: [id number] PT STATUS: REG ER : 1970 PHYSICIAN: SUMMER MUSA MD ADMIT DATE: 10/01/21/ER Draft Date of Exam:10/01/21 CHEST 1 VIEW, AP/PA ONLY INDICATION: Nausea, vomiting. COMPARISON: 12/07/2020. FINDINGS: No focal infiltrate, failure pattern, effusion or pneumothorax. IMPRESSION: No acute appearing abnormality. Dictated on workstation # [id number] Dict: 10/01/211999 Trans: 10/01/212019 [facility] [id number] Interpreted by: TAHIR PINON Electronically signed by: Reviewed: Reviewed by Me Diagonstic Imaging: Xray Plain Films/CT/US/NM/MRI: chest Comments [facility] [place] [place] NAME: [facility] REC#: [id number] PT STATUS: REG ER : 1970 PHYSICIAN: SUMMER MUSA MD ADMIT DATE: 10/01/21/ER Signed Date of Exam:10/01/21 CHEST 1 VIEW, AP/PA ONLY INDICATION: Central line placement FINDINGS: Right IJ catheter tip projects over the lower SVC in good alignment. There is no pneumothorax. The lungs clear. IMPRESSION: Central line placed in good position without complication or other acute pathology radiographically apparent. Dictated by: Dictated on workstation # [id number] Dict: 10/01/212039 Trans: 10/01/212054 [facility] [id number] Interpreted by: TAHIR PINON Electronically signed by: TAHIR PINON 10/01/212054 Reviewed: Reviewed by Me Departure Impression Primary Impression: Diabetic ketoacidosis Qualified Codes: E10.10 - Type 1 diabetes mellitus with ketoacidosis without coma Additional Impressions: Acute kidney failure Qualified Codes: N17.9 - Acute kidney failure, unspecified Hyperkalemia UTI (urinary tract infection) Qualified Codes: N30.01 - Acute cystitis with hematuria Severe sepsis Disposition: 02 XFER SHT-TRM HOSP Condition: Stable Transfer Transfer Reason: Exceeds level of care (No nephrology consult available locally) Time Spoke to Accepting Phy: 20:55 Transfer Progress Notes 2030: [facility] Triage will page IM. 2054: Dr Che accepts to [facility] ICU. Transfer Facility: [place], [place] Method of Transfer: EMS Departure-Patient Inst. Referrals: FABY GARCIA MD (PCP/Family) Primary Care Physician SUMMER MUSA Oct 01, 2021 19:13
[2021-10-01] MEDS ORDERED: ONDANSETRON 4 MG/2 ML (SDV) Z0FRAN IVP ONE (19:15)
[2021-10-01] MEDS ORDERED: PANTOPRAZOLE 40 MG (PROTONIX) VIAL IV ONE (19:15)
[2021-10-01] MEDS ORDERED: inSUlin (REGULAR) HUMAN 1 UNIT/0.01 ML (CHARGE PER UNIT) IV STA (19:16)
[2021-10-01 19:25] LABS: BASOPHILS % (AUTO) 0 % (0-10); EOSINOPHILS % (AUTO) 0 % (0-10); HEMATOCRIT 42 % (40-54); HEMOGLOBIN 13.5 g/dL (13.3-17.7); LYMPHOCYTES # (AUTO) 0.6 10^3/uL (1.0-4.0); LYMPHOCYTES % (AUTO) 3 % (12-44); MEAN CORPUSCULAR HEMOGLOBIN 24 pg (25-34); MEAN CORPUSCULAR HGB CONC 33 g/dL (32-36); MEAN CORPUSCULAR VOLUME 73 fL (80-99); MEAN PLATELET VOLUME 9.7 fL (9.0-12.2); MONOCYTES # (AUTO) 0.4 10^3/uL (0.0-1.0); MONOCYTES % (AUTO) 2 % (0-12); NEUTROPHILS # (AUTO) 20.9 10^3/uL (1.8-7.8); NEUTROPHILS % (AUTO) 94 % (42-75); PLATELET COUNT 820 10^3/uL (130-400); WHITE BLOOD COUNT 22.2 10^3/uL (4.3-11.0)
[2021-10-01 19:38] LABS: INR 1.1 (0.8-1.4); PROTHROMBIN TIME PATIENT 14.6 SEC (12.2-14.7)
[2021-10-01 19:53] LABS: ALANINE AMINOTRANSFERASE 30 U/L (0-55); ALBUMIN 3.9 GM/DL (3.2-4.5); ALKALINE PHOSPHATASE 97 U/L (40-136); BILIRUBIN,TOTAL 0.4 MG/DL (0.1-1.0); BUN/CREATININE RATIO 19; CALCIUM 10.8 MG/DL (8.5-10.1); CARBON DIOXIDE 10 MMOL/L (21-32); CHLORIDE 85 MMOL/L (98-107); CREATININE SERUM 8.91 MG/DL (0.60-1.30); GFR ESTIMATED 7; LIPASE 21 U/L (8-78); MAGNESIUM 2.5 MG/DL (1.6-2.4); TOTAL PROTEIN 10.5 GM/DL (6.4-8.2)
[2021-10-01 19:56] LABS: GLUCOSE 438 MG/DL (70-105); POTASSIUM 6.9 MMOL/L (3.6-5.0); SODIUM 122 MMOL/L (135-145)
[2021-10-01 20:03] LABS: BAND NEUTROPHILS 2 %; LYMPHOCYTES % (MANUAL) 3 %; MONOCYTES % (MANUAL) 3 %; NEUTROPHILS % (MANUAL) 92 %; RBC MORPH NORMAL
[2021-10-01] MEDS ORDERED: ONDANSETRON 4 MG/2 ML (SDV) Z0FRAN ONE (20:05)
[2021-10-01] MEDS ORDERED: METOCLOPRAMIDE INJ 10 MG/2 ML (REGLAN) ONE (20:05)
--- NOTE | 2021-10-01 20:21 | Diagnostic Imaging Report ---
INDICATION: Nausea, vomiting. COMPARISON: 12/07/2020. FINDINGS: No focal infiltrate, failure pattern, effusion or pneumothorax. IMPRESSION: No acute appearing abnormality. Dictated by: Dictated on workstation # [id number]
[2021-10-01] MEDS ORDERED: RT-ALBUTEROL SULF 2.5 MG/3 ML PRE-MIX VIAL INH STA (20:28)
[2021-10-01] MEDS ORDERED: CALCIUM CHLORIDE 1 GM/10 ML (IMS) SYR INJ ONE (20:30)
[2021-10-01] MEDS ORDERED: CALC GLUC 1 GM/100 ML IVPB 100 ML IV ONE (20:37)
--- NOTE | 2021-10-01 20:44 | Diagnostic Imaging Report ---
INDICATION: Central line placement FINDINGS: Right IJ catheter tip projects over the lower SVC in good alignment. There is no pneumothorax. The lungs clear. IMPRESSION: Central line placed in good position without complication or other acute pathology radiographically apparent. Dictated by: Dictated on workstation # [id number]
[2021-10-01] MEDS ORDERED: CALCIUM GLUC. 10% 4.65 MEQ/10 ML VIAL IV ONE (20:45)
[2021-10-01 21:10] LABS: BILIRUBIN,URINE NEGATIVE (NEGATIVE); CLARITY,URINE TURBID; COLOR,URINE YELLOW; GLUCOSE, URINE (UA) 1+ (NEGATIVE); KETONES,URINE TRACE (NEGATIVE); LEUKOCYTE ESTERASE ,URINE 3+ (NEGATIVE); NITRITE,URINE NEGATIVE (NEGATIVE); PROTEIN,URINE 2+ (NEGATIVE)
[2021-10-01 21:21] LABS: BACTERIA,URINE MODERATE /HPF; RBC,URINE TNTC /HPF
[2021-10-01 21:22] LABS: AMPHETAMINE SCREEN, URINE NEGATIVE (NEGATIVE); BARBITURATE SCREEN URINE NEGATIVE (NEGATIVE); BENZODIAZEPINES SCREEN URINE NEGATIVE (NEGATIVE); CANNABINOID SCREEN, URINE NEGATIVE (NEGATIVE); COCAINE SCREEN URINE NEGATIVE (NEGATIVE); METHADONE STAT NEGATIVE (NEGATIVE); METHAMPHETAMINE SCREEN URINE S NEGATIVE (NEGATIVE); OPIATE SCREEN URINE NEGATIVE (NEGATIVE); OXYCODONE STAT NEGATIVE (NEGATIVE); PROPOXYPHENE STAT NEGATIVE (NEGATIVE); TRICYCLIC ANTIDEPRESSANTS SCRE NEGATIVE (NEGATIVE)
[2021-10-01 21:30] VITALS: BP 150/96
== END 2021-10-01 21:48 | disposition short-term general hospital (02) ==
LOC: EDUNIT# 18:54 → ER 18:56
DX: A41.9 Sepsis, unspecified organism (principal); R65.20 Severe sepsis without septic shock; E10.10 Type 1 diabetes mellitus with ketoacidosis without coma; N17.9 Acute kidney failure, unspecified; N30.01 Acute cystitis with hematuria; E87.5 Hyperkalemia; R00.0 Tachycardia, unspecified; Z20.822 Contact with and (suspected) exposure to COVID-19
CPT/HCPCS: 36415; 51702; 71045; 80053; 80306; 81000; 82947; 83605; 83690; 83735; 84484; 85007; 85027; 85610; 85730; 86141; 87040; 87088; 87636; 93005; 94640; 99291

== ENCOUNTER 2021-12-08 15:41 | Emergency (ER) | payer MEDICARE ==
[~2021-12-08] VITALS: Ht 185.4 cm; Wt 90.7 kg
[2021-12-08] MEDS ORDERED: MAG SULFATE 1 GM/100 ML IV PRE-MIX BAG IV ONE (15:43)
[2021-12-08] MEDS ORDERED: ETOMIDATE IV SOLN 20 MG/10 ML VIAL IV ONE (15:43)
[2021-12-08] MEDS ORDERED: AMIODARONE 150 MG/3 ML (CORDARONE) VIAL IV ONE (15:43)
--- NOTE | 2021-12-08 16:27 | ED General ---
General Chief Complaint: Cardiac/General Problems Stated Complaint: RAPID HEART RATE Source of Information: EMS Exam Limitations: Physical Impairments History of Present Illness Date Seen by Provider: Dec 08, 2021 Time Seen by Provider: 15:45 Initial Comments Patient is a 51-year-old male presents by EMS chief complaint nausea vomiting 3 days and EMS reports wide-complex tachycardia. Blood pressure was reported as adequate. He was given adenosine 6 mg, 12 mg and 12 mg without any resolution of the tachycardia. Patient presents awake, alert but somnolent and appears ill. Basically gives one-word answers, yeses and noes. He tells me he is a type I diabetic. He denies chest pain. He has had nausea and vomiting as stated. I am really unable to get much else for history secondary to his critical state. Patient did arrive with IV access. He was rapidly given 20 mg of etomidate for sedation for cardioversion as his blood pressure was in the 80s systolic. Synchronized cardioversion was administered x2 with resolution of the V. tach. This shows a initially junctional rhythm with a wide QRS complex and peaked T waves most consistent with hyperkalemia. Blood pressure remained within normal limits. Right-sided femoral line was accessed. Throughout resuscitation patient was given 150 mg of amiodarone, 1 g of magnesium. Subsequent EKGs patient was given calcium gluconate. Currently on IV fluids. Laboratory studies are pending. At this time critical lab values are shown sodium 128, potassium 7.5. CO2 of 9. Creatinine of 11.6. Lactate of 2.62 Apparently the patient's mother did call and speak with one of the nurses and advised that he has some chronic kidney disease and is currently being worked up for possible dialysis. Timing/Duration: 3-4 Days Severity: Severe Associated Systoms: Malaise, Nausea/Vomiting Allergies and Home Medications Allergies Coded Allergies: No Known Drug Allergies (Unverified , 10/29/20) Patient Home Medication List Home Medication List Reviewed: Yes Amoxicillin/Potassium Clav (Augmentin 875-125 Tablet) 1 Each Tablet, 1 EACH PO BID Prescribed by: FRANCIA DUVAL on 12/14/20 1200 Atorvastatin Calcium (Atorvastatin Calcium) 40 Mg Tablet, 40 MG PO HS, (Reported) Entered as Reported by: MARGOT KENNEDY on 12/08/20 1407 Insulin Aspart (Novolog Flexpen) 300 Units/3 Ml Solution, 10 UNITS SQ AC, (Reported) Entered as Reported by: MARGOT KENNEDY on 12/08/201406 Insulin Detemir (Levemir Flextouch) 100 Unit/1 Ml Insuln.pen, 20 UNIT SQ BID, (Reported) Entered as Reported by: MARGOT KENNEDY on 12/08/201406 Lisinopril (Lisinopril) 20 Mg Tablet, 20 MG PO DAILY, (Reported) Entered as Reported by: MARGOT KENNEDY on 12/08/201406 Metoprolol Tartrate (Metoprolol Tartrate) 25 Mg Tablet, 25 MG PO BID, (Reported) Entered as Reported by: MARGOT KENNEDY on 12/08/201406 Review of Systems Review of Systems Constitutional: see HPI Unable to obtain extensive review of systems secondary to patient's critical state All Other Systems Reviewed Negative Unless Noted: No Past Exjlcor-Vmshkr-Zarvdi Hx Past Medical History Surgeries: Yes (L FOOT AMPUTATION. Cervical spine surgery.) Amputation, Appendectomy, Gallbladder, Orthopedic Respiratory: No Cardiac: No Neurological: Yes Neuropathy Genitourinary: No Gastrointestinal: No Musculoskeletal: Yes Amputee, Fractures Endocrine: Yes Diabetes, Insulin dep HEENT: No Loss of Vision: Bilateral Hearing Impairment: Denies Cancer: No Psychosocial: No Integumentary: No Blood Disorders: No Adverse Reaction/Blood Tranf: No Family Medical History Cancer, Diabetes, Lung Disease NC Physical Exam Vital Signs Vital Signs - First Documented 12/08/21 12/08/21 15:41 16:48 Temp 36.2 Pulse 230 Resp 30 B/P (MAP) 146/91 (109) Pulse Ox 100 O2 Delivery Non Rebreather O2 Flow Rate 15.00 Capillary Refill : Height, Weight, BMI Height: '" Weight: lbs. oz. kg; 32.00 BMI Method: General Appearance: Chronically ill Eyes: Bilateral Eye Normal Inspection HEENT: Other (Vomitus noted) Neck: Normal Inspection Respiratory: Lungs Clear Cardiovascular: Tachycardia Gastrointestinal: Soft, Abnormal Bowel Sounds (hypoactive) Extremity: Normal Inspection Neurologic/Psychiatric: Alert, Depressed Affect Skin: Diaphoresis, Pallor Focused Exam Lactate Level 12/08/21 16:25: Lactic Acid Level 2.62*H Lactic Acid Level Laboratory Tests Test 12/08/21 16:25 Lactic Acid Level 2.62 MMOL/L (0.50-2.00) *H Procedures/Interventions Lumen: triple Central Line Procedure: betadine prep, sterile drapes applied, sterile dressing applied Position: femoral (R) Anesthesia: Lidocaine Volume Anesthetic (ccs): 3 Complications: none Post Position: sutured, good blood return Breath Sounds per Auscultation: Clear Due to patient's extreme/critical state we did not have time for consent for procedural sedation for electrical cardioversion. Patient's airway was assessed and found to be adequate. Lungs were clear. Patient was given 20 mg of etomidate, synchronized cardioversion at 200 J was administered x2 with resolution of V. tach Additional Procedures: cardioversion/defib Progress/Results/Core Measures Suspected Sepsis SIRS Temperature: Pulse: Respiratory Rate: Laboratory Tests 12/08/21 16:25: White Blood Count 36.8*H Blood Pressure / Mean: 12/08/21 16:25: Lactic Acid Level 2.62*H Laboratory Tests 12/08/21 16:25: Creatinine 11.60H, INR Comment 1.2, Platelet Count 542H, Total Bilirubin 0.3 Results/Orders Lab Results Laboratory Tests Test 12/08/21 16:22 12/08/21 16:25 12/08/21 16:55 12/08/21 17:37 Range/Units Glucometer 296 H 70-110 MG/DL White Blood Count 36.8 *H 4.3-11.0 10^3/uL Red Blood Count 3.59 L 4.30-5.52 10^6/uL Hemoglobin 9.0 L 13.3-17.7 g/dL Hematocrit 28 L 40-54 % Mean Corpuscular Volume 77 L 80-99 fL Mean Corpuscular Hemoglobin 25 25-34 pg Mean Corpuscular Hemoglobin Concent 33 32-36 g/dL Red Cell Distribution Width 18.3 H 10.0-14.5 % Platelet Count 542 H 130-400 10^3/uL Mean Platelet Volume 9.2 9.0-12.2 fL Immature Granulocyte % (Auto) 3 % Neutrophils (%) (Auto) 92 H 42-75 % Lymphocytes (%) (Auto) 1 L 12-44 % Monocytes (%) (Auto) 4 0-12 % Eosinophils (%) (Auto) 0 0-10 % Basophils (%) (Auto) 0 0-10 % Neutrophils # (Auto) 33.7 H 1.8-7.8 X 10^3 Lymphocytes # (Auto) 0.5 L 1.0-4.0 X 10^3 Monocytes # (Auto) 1.4 H 0.0-1.0 X 10^3 Eosinophils # (Auto) 0.0 0.0-0.3 10^3/uL Basophils # (Auto) 0.0 0.0-0.1 10^3/uL Immature Granulocyte # (Auto) 1.1 H 0.0-0.1 10^3/uL Neutrophils % (Manual) 98 % Lymphocytes % (Manual) 1 % Monocytes % (Manual) 1 % Poikilocytosis SLIGHT Anisocytosis SLIGHT Prothrombin Time 15.6 H 12.2-14.7 SEC INR Comment 1.2 0.8-1.4 Activated Partial Thromboplast Time 33 24-35 SEC Sodium Level 120 *L 135-145 MMOL/L Potassium Level 7.5 *H 3.6-5.0 MMOL/L Chloride Level 93 L 98-107 MMOL/L Carbon Dioxide Level 9 *L 21-32 MMOL/L Anion Gap 18 H 5-14 MMOL/L Blood Urea Nitrogen 159 *H 7-18 MG/DL Creatinine 11.60 H 0.60-1.30 MG/DL Estimat Glomerular Filtration Rate 5 BUN/Creatinine Ratio 14 Glucose Level 338 H 70-105 MG/DL Lactic Acid Level 2.62 *H 0.50-2.00 MMOL/L Calcium Level 8.1 L 8.5-10.1 MG/DL Corrected Calcium 9.0 8.5-10.1 MG/DL Magnesium Level 2.1 1.6-2.4 MG/DL Total Bilirubin 0.3 0.1-1.0 MG/DL Aspartate Amino Transf (AST/SGOT) 4 L 5-34 U/L Alanine Aminotransferase (ALT/SGPT) 6 0-55 U/L Alkaline Phosphatase 89 40-136 U/L Myoglobin 910.7 H 10.0-92.0 NG/ML Troponin I < 0.028 <0.028 NG/ML B-Type Natriuretic Peptide 139.2 H <100.0 PG/ML Total Protein 7.0 6.4-8.2 GM/DL Albumin 2.9 L 3.2-4.5 GM/DL Urine Color YELLOW Urine Clarity CLOUDY H Urine pH 6.0 5-9 Urine Specific [place] 1.015 L 1.016-1.022 Urine Protein 3+ H NEGATIVE Urine Glucose (UA) 2+ H NEGATIVE Urine Ketones TRACE H NEGATIVE Urine Nitrite NEGATIVE NEGATIVE Urine Bilirubin NEGATIVE NEGATIVE Urine Urobilinogen 0.2 < = 1.0 MG/DL Urine Leukocyte Esterase 3+ H NEGATIVE Urine RBC (Auto) 3+ H NEGATIVE Urine RBC 25-50 H /HPF Urine WBC TNTC H /HPF Urine Squamous Epithelial Cells 2-5 /HPF Urine Crystals NONE /LPF Urine Amorphous Sediment /LPF Urine Bacteria MODERATE H /HPF Urine Casts NONE /LPF Urine Mucus NEGATIVE /LPF Urine Culture Indicated YES Urine Opiates Screen NEGATIVE NEGATIVE Urine Oxycodone Screen NEGATIVE NEGATIVE Urine Methadone Screen NEGATIVE NEGATIVE Urine Propoxyphene Screen NEGATIVE NEGATIVE Urine Barbiturates Screen NEGATIVE NEGATIVE Ur Tricyclic Antidepressants Screen NEGATIVE NEGATIVE Urine Phencyclidine Screen NEGATIVE NEGATIVE Urine Amphetamines Screen NEGATIVE NEGATIVE Urine Methamphetamines Screen NEGATIVE NEGATIVE Urine Benzodiazepines Screen NEGATIVE NEGATIVE Urine Cocaine Screen NEGATIVE NEGATIVE Urine Cannabinoids Screen NEGATIVE NEGATIVE Blood Gas Puncture Site RIGHT RADIAL Blood Gas Patient Temperature 36.5 Arterial Blood pH 7.23 *L 7.37-7.43 Arterial Blood Partial Pressure CO2 22 L 35-45 MMHG Arterial Blood Partial Pressure O2 98 H 79-93 MMHG Arterial Blood HCO3 9 *L 23-27 MMOL/L Arterial Blood Total CO2 9.5 *L 21.0-31.0 MMOL/L Arterial Blood Oxygen Saturation 98 94-100 % Arterial Blood Base Excess -17.4 L -2.5-2.5 MMOL/L Eliazar Test POSITIVE Blood Gas Ventilator Setting NO Blood Gas Inspired Oxygen N/A Test 12/08/21 17:53 Range/Units Glucometer 339 H 70-110 MG/DL Micro Results Microbiology 12/08/21 Urine Culture - Final, Complete NO GROWTH 12/08/21 Blood Culture - Preliminary, Resulted Gram Positive Cocci in Cluster My Orders Orders - CLARITA AYERS MD Ekg Tracing (12/08/21 15:46) Cbc With Automated Diff (12/08/21 16:23) Magnesium (12/08/21 16:23) Chest 1 View, Ap/Pa Only (12/08/21 16:23) Ekg Tracing (12/08/21 16:23) Comprehensive Metabolic Panel (12/08/21 16:23) Myoglobin Serum (12/08/21 16:23) Protime With Inr (12/08/21 16:23) Partial Thromboplastin Time (12/08/21 16:23) O2 (12/08/21 16:23) Monitor-Rhythm Ecg Trace Only (12/08/21 16:23) Ed Iv/Invasive Line Start (12/08/21 16:23) Troponin I Yobani (12/08/21 16:23) Calc Gluc 1 Gm/100 Ml Ivpb (Calcium Gluc (12/08/21 16:30) Bnp [place] (12/08/21 16:23) Blood Culture (12/08/21 16:23) Lactic Acid Analyzer (12/08/21 16:23) Ua Culture If Indicated (12/08/21 16:23) Drug Screen Stat (Urine) (12/08/21 16:23) Ekg Tracing (12/08/21 16:25) Magnesium 1 Gm/100 Ml Ivpb (Magnesium Velazquez (12/08/21 16:30) Amiodarone For Bolus (Cordarone Bolus) (12/08/21 16:30) Manual Differential (12/08/21 16:25) Sodium Bicarbonate 8.4% Syr (Sodium Bica (12/08/21 17:00) Insulin (Regular) Human (Novolin R (Per (12/08/21 17:00) D50w (Emergency) Syringe (Dextrose 50% 5 (12/08/21 17:00) Albuterol Pre-Mix Nebs (Rt) (Proventil (12/08/21 17:00) Svn Small Volume Nebulizer (12/08/21 16:55) Piperacillin Sodium/Tazobactam (Zosyn Vi (12/08/21 17:30) Blood Culture (12/08/21 16:50) Sodium Bicarbonate 8.4% Syr (Sodium Bica (12/08/21 17:45) Arterial Blood Gas (12/08/21 17:23) Arterial Blood Draw - Obtain (12/08/21 17:37) Urine Culture (12/08/21 16:55) Calc Gluc 1 Gm/100 Ml Ivpb (Calcium Gluc (12/08/21 18:15) Catheter(Urinary) Insert & Ass 03,15 (12/08/21 18:13) Etomidate Injection (Amidate Injection) (12/08/21 15:43) Magnesium 1 Gm/100 Ml Ivpb (Magnesium Velazquez (12/08/21 15:43) Amiodarone For Bolus (Cordarone Bolus) (12/08/21 15:43) Medications Given in ED Vital Signs/I&O 12/08/21 12/08/21 12/08/21 12/08/21 15:41 15:51 16:48 17:40 Temp 36.2 Pulse 230 230 Resp 30 B/P (MAP) 146/91 (109) 146/91 Pulse Ox 100 100 100 O2 Delivery Non Rebreather Room Air O2 Flow Rate 15.00 0 12/08/21 19:26 Pulse 125 Resp 23 B/P (MAP) 104/61 Pulse Ox 100 Capillary Refill : Progress Note #1: Time: 17:09 Progress Note On the phone with [place] transfer center at this time Progress Note #2: Time: 17:27 Progress Note Case discussed with Dr. Hernandez. He advised a second amp of bicarb at this time and 1 g of calcium chloride. Patient is now off of oxygen, conversing with nursing staff. Maintaining good oxygen sats on room air. Blood pressure and pulse are within normal limits. Patient technically meets indications for DKA treatment. We will go ahead and start him on an insulin drip. Obtaining another Accu-Chek at this time. After calcium chloride and bicarb second bolus is pushed we will repeat Chem-7. It may be up to an hour before the patient is able to get transport to [place]. I did advise Dr. Hernandez that the patient belongs to the [facility]. Care will be passed to Dr. Beltran at shift change. Progress Note #3: Time: 18:12 Progress Note Second amp of calcium gluconate given as we apparently do not have calcium chloride in the hospital. ECG Initial ECG Impression Date: Dec 08, 2021 Initial ECG Impression Time: 15:53 Initial ECG Rate: 97 Initial ECG Intervals Appears to be a junctional rhythm, wide QRS with peaked T waves, left bundle branch block, concerning for hyperkalemia no ectopy is noted EKG : EKG Time: 16:28 Rate: 102 Rhythm: Normal Sinus Intervals [place] interval 198 QRS 126 QTC 438 Comment Wide QRS complex concerning for hyperkalemia Diagnostic Imaging Diagonstic Imaging: Xray Plain Films/CT/US/NM/MRI: chest Comments [facility]. [place], [place] NAME: DWAYNE ALLISON [facility] REC#: [id number] PT STATUS: REG ER : 1970 PHYSICIAN: CLARITA AYERS MD ADMIT DATE: 12/08/21/ER Signed Date of Exam:12/08/21 CHEST 1 VIEW, AP/PA ONLY Indication: CODE BLUE COMPARISON: 10/01/2021 FINDINGS: Single view of the chest demonstrates clear lungs bilaterally. The heart is normal. There is no pneumothorax. Osseous structures are age appropriate. IMPRESSION: Negative chest Dictated by: Dictated on workstation # [id number] Dict: 12/08/21 165 Trans: 12/08/211655 CVB [id number] Interpreted by: SIGRID HUDSON Electronically signed by: SIGRID HUDSON 12/08/21 1656 Critical Care Note Critical Care Start Time: 15:45 Stop Time: 17:30 Total Time (minutes) 1 hour critical care time in the evaluation and management of this patient presenting in the tach with hyperglycemia. Time includes initial evaluation and management of fluids, electrolytes, arrhythmia. Time includes review and interpretation of past medical record, review and interpretation of initial laboratory studies, EKG and imaging. Medication management for arrhythmia. Discussion with transferring physician at [facility], time does not include that spent in procedures such as electrical cardioversion and central line placement Departure Impression Primary Impression: Ventricular tachycardia Additional Impressions: Acute on chronic renal failure Qualified Codes: N17.9 - Acute kidney failure, unspecified; N18.9 - Chronic kidney disease, unspecified Hyperkalemia Sepsis Qualified Codes: A41.9 - Sepsis, unspecified organism; R65.20 - Severe sepsis without septic shock; N17.9 - Acute kidney failure, unspecified Disposition: [facility]-TRM HOSP Condition: Critical Transfer Transfer Reason: Exceeds level of care Time Spoke to Accepting Phy: 17:27 Transfer Progress Notes Discussed with Dr Hernandez Transfer Facility: [facility] Method of Transfer: Air Departure-Patient Inst. Referrals: FABY GARCIA MD (PCP/Family) Primary Care Physician CLARITA AYERS MD Dec 08, 2021 16:27
[2021-12-08] MEDS ORDERED: MAGNESIUM 1 GM/100 ML IVPB 100 ML IV ONE (16:30)
[2021-12-08] MEDS ORDERED: AMIODARONE FOR BOLUS 150 MG in NS (IVPB) 100 ML IV ONE (16:30)
[2021-12-08] MEDS ORDERED: CALC GLUC 1 GM/100 ML IVPB 100 ML IV ONE ×2 (16:30→18:15)
[2021-12-08 16:38] LABS: BASOPHILS % (AUTO) 0 % (0-10); EOSINOPHILS % (AUTO) 0 % (0-10); HEMATOCRIT 28 % (40-54); LYMPHOCYTES # (AUTO) 0.5 X 10^3 (1.0-4.0); LYMPHOCYTES % (AUTO) 1 % (12-44); MEAN CORPUSCULAR HEMOGLOBIN 25 pg (25-34); MEAN CORPUSCULAR HGB CONC 33 g/dL (32-36); MEAN CORPUSCULAR VOLUME 77 fL (80-99); MEAN PLATELET VOLUME 9.2 fL (9.0-12.2); MONOCYTES # (AUTO) 1.4 X 10^3 (0.0-1.0); MONOCYTES % (AUTO) 4 % (0-12); NEUTROPHILS # (AUTO) 33.7 X 10^3 (1.8-7.8); NEUTROPHILS % (AUTO) 92 % (42-75); PLATELET COUNT 542 10^3/uL (130-400)
[2021-12-08 16:42] LABS: WHITE BLOOD COUNT 36.8 10^3/uL (4.3-11.0)
[2021-12-08 16:49] LABS: ALBUMIN 2.9 GM/DL (3.2-4.5); INR 1.2 (0.8-1.4); PROTHROMBIN TIME PATIENT 15.6 SEC (12.2-14.7)
[2021-12-08 16:51] LABS: CALCIUM 8.1 MG/DL (8.5-10.1)
[2021-12-08 16:54] LABS: BILIRUBIN,TOTAL 0.3 MG/DL (0.1-1.0)
[2021-12-08 16:55] LABS: CREATININE SERUM 11.6 MG/DL (0.60-1.30)
--- NOTE | 2021-12-08 16:55 | Diagnostic Imaging Report ---
Indication: CODE BLUE COMPARISON: 10/01/2021 FINDINGS: Single view of the chest demonstrates clear lungs bilaterally. The heart is normal. There is no pneumothorax. Osseous structures are age appropriate. IMPRESSION: Negative chest Dictated by: Dictated on workstation # [id number]
[2021-12-08 16:59] LABS: MAGNESIUM 2.1 MG/DL (1.6-2.4)
[2021-12-08 17:00] LABS: POTASSIUM 7.5 MMOL/L (3.6-5.0)
[2021-12-08] MEDS ORDERED: inSUlin (REGULAR) HUMAN 1 UNIT/0.01 ML (CHARGE PER UNIT) IV ONE (17:00)
[2021-12-08] MEDS ORDERED: SODIUM BICARB 8.4% 50 MEQ/50 ML (ABBOTT) SYR IV ONE ×2 (17:00→17:45)
[2021-12-08] MEDS ORDERED: RT-ALBUTEROL SULF 2.5 MG/3 ML PRE-MIX VIAL INH ONE (17:00)
[2021-12-08] MEDS ORDERED: DEXTROSE 50% 50 ML (IMS) SYR IV ONE (17:00)
[2021-12-08 17:11] LABS: ANISOCYTOSIS SLIGHT; LYMPHOCYTES % (MANUAL) 1 %; MONOCYTES % (MANUAL) 1 %; NEUTROPHILS % (MANUAL) 98 %; POIKILOCYTOSIS SLIGHT
[2021-12-08] MEDS ORDERED: PIPERACILLIN SODIUM/TAZOBACTAM 4.5 GM in NS (IVPB) 100 ML IV ONE (17:30)
[2021-12-08 17:31] LABS: AMPHETAMINE SCREEN, URINE NEGATIVE (NEGATIVE); BARBITURATE SCREEN URINE NEGATIVE (NEGATIVE); BENZODIAZEPINES SCREEN URINE NEGATIVE (NEGATIVE); CANNABINOID SCREEN, URINE NEGATIVE (NEGATIVE); COCAINE SCREEN URINE NEGATIVE (NEGATIVE); METHADONE STAT NEGATIVE (NEGATIVE); OPIATE SCREEN URINE NEGATIVE (NEGATIVE); OXYCODONE STAT NEGATIVE (NEGATIVE); PROPOXYPHENE STAT NEGATIVE (NEGATIVE); TRICYCLIC ANTIDEPRESSANTS SCRE NEGATIVE (NEGATIVE)
[2021-12-08 17:42] LABS: ABG BASE EXCESS -17.4 MMOL/L (-2.5-2.5); ABG OXYGEN SATURATION 98 % (94-100); ABG PCO2 22 MMHG (35-45); ABG PO2 98 MMHG (79-93)
[2021-12-08 17:44] LABS: ABG PH 7.23 (7.37-7.43)
[2021-12-08 17:45] LABS: ABG TCO2 9.5 MMOL/L (21.0-31.0); ALLENS TEST POSITIVE; PATIENT TEMP 36.5; VENTILATOR NO
[2021-12-08] MEDS ORDERED: CALCIUM CHLORIDE 1 GM/10 ML (IMS) SYR INJ ONE (17:45)
[2021-12-08 17:59] LABS: CLARITY,URINE CLOUDY; COLOR,URINE YELLOW
[2021-12-08 18:00] LABS: BILIRUBIN,URINE NEGATIVE (NEGATIVE); GLUCOSE, URINE (UA) 2+ (NEGATIVE); KETONES,URINE TRACE (NEGATIVE); NITRITE,URINE NEGATIVE (NEGATIVE); PROTEIN,URINE 3+ (NEGATIVE)
[2021-12-08 18:01] LABS: BACTERIA,URINE MODERATE /HPF; LEUKOCYTE ESTERASE ,URINE 3+ (NEGATIVE); RBC,URINE 25-50 /HPF; WBC,URINE TNTC /HPF
[2021-12-08 19:26] VITALS: BP 104/61
== END 2021-12-08 19:15 | disposition short-term general hospital (02) ==
LOC: EDUNIT# 15:41 → ER 15:42
DX: A41.9 Sepsis, unspecified organism (principal); R65.20 Severe sepsis without septic shock; E11.22 Type 2 diabetes mellitus with diabetic chronic kidney disease; N18.9 Chronic kidney disease, unspecified; I47.2 Ventricular tachycardia; E87.5 Hyperkalemia
CPT/HCPCS: 36415; 36600; 51702; 71045; 80053; 80306; 81000; 82805; 82947; 83605; 83735; 83874; 83880; 84484; 85007; 85027; 85610; 85730; 87040; 87077; 87088; 93005; 93041; 94640; 94644; 96365; 96367; 96375; 96376; 99291